=== PATIENT | female | born 1990 | race African-American/Black ===

== ENCOUNTER 2019-11-29 00:41 | Inpatient (IN) | payer SELFPAY ==
[2019-11-29 00:42] VITALS: BP 145/97; PULSE 104; RESP 22; TEMP 37.2; O2SAT 98; BMI 35.4
--- NOTE | 2019-11-29 01:01 | ECG_ITS ---
Measurements Intervals [place] Rate: 78 P: 54 WA: 159 QRS: 72 QRSD: 83 T: 56 QT: 364 QTc: 416 SINUS RHYTHM No previous ECG available for comparison Electronically Signed On 11-30-2019 14:56:46 CDT by Lauren Alcala M.D. [id number]
--- NOTE | 2019-11-29 01:04 | W.ED.PSYCH ---
HPI - Psych General: Chief Complaint: Psychiatric Symptoms Stated Complaint: si. sore throat Time Seen by Provider: 11/29/19 00:48 History of Present Illness: HPI Narrative: Susan is a 29-year-old female who comes in complaining of feeling suicidal. Patient is very withdrawn and does not want to explain to me exactly why she feels this way but she states she has a plan to get raped and be thrown off into a ditch. Patient denies having ingested or take anything up to this point but is here and wants to get help. Review of Systems Const: Denies: fever(s), chills, body aches, fatigue, malaise or diaphoresis Eyes: Denies: change in vision, blurry vision, blind spots or photophobia ENMT: Denies: throat pain, odynophagia, hoarseness, swelling of lips/tongue, ear or mastoid pain, ear discharge, change in hearing or nasal discharge Card: Denies: chest pain, palpitations, irregular heart rhythm, edema, lightheadedness, syncope, pre-syncope, dyspnea on exertion or orthopnea Resp: Denies: dyspnea, productive cough, non-productive cough, wheezing, hemoptysis or chest congestion GI: Denies: abdominal pain, nausea, vomiting, hematemesis, coffee ground emesis, heartburn, diarrhea, constipation, GI cramping, hematochezia or melena : Denies: flank pain, dysuria, urinary frequency, urinary urgency or hematuria Musc: Denies: neck pain, back pain, extremity pain, extremity swelling, joint pain, joint swelling, joint redness, joint warmth or joint stiffness Skin/Breast: Denies: rash, pruritus, erythema, skin tenderness or jaundice Neuro: Denies: headache(s), numbness in extremities, weakness in extremities, sensory changes, lack of coordination, difficulty walking, dizziness, vertigo, confusion or Slurred speech present Lazaro/Lymph: Denies: easy bruising, easy bleeding, petechiae, purpura or enlarged lymph nodes All/Imm: Denies: urticaria, throat swelling, tongue swelling, facial swelling or acute wheezing PFSH ED PFSH: Social History Smoking and tobacco status: current every day smoker Female Reproductive History: Date of last menstrual period: 11/18/19 Physical Exam Const: COMMON NORMALS: no acute distress, patient oriented x3, no limitations, healthy appearing and well nourished GENERAL APPEARANCE: cooperative, well kempt and well developed HENMT: COMMON NORMALS: normocephalic, atraumatic, external ears normal, EAC's normal and Normal external nose present HEAD & SCALP: normal to inspection, normocephalic and atraumatic FACE & SINUS: normal facial exam and face symmetric NOSE: Normal external nose present and Normal nares present EXTERNAL EAR: Yes external ears normal EXTERNAL AUDITORY CANAL: EAC's normal MOUTH: Normal oral and palatal mucosa present, lip normal and tongue normal Eye: COMMON NORMALS: Equal, round and reactive pupils present and conjunctivae normal GENERAL EYE: appearance normal, both eyes and all related structures ALIGNMENT: Yes alignment normal PERIORBITAL: periorbital findings normal EYELID: eyelids normal CONJUNCTIVA: Yes conjunctivae normal SCLERA: sclerae normal PUPIL: Yes Equal, round and reactive pupils present Neck/C-Spine: COMMON NORMALS: full ROM, no lymphadenopathy, supple, no meningeal signs and no JVD GENERAL: Yes normal visual inspection and Yes trachea midline Chest: COMMONS NORMALS: normal inspection of the chest and normal palpation of entire chest wall Resp: COMMON NORMALS: normal respiratory effort, No retractions and No use of accessory muscles EFFORT & INSPECTION: Yes able to speak in complete sentences and Yes symmetric chest movement AUSCULTATION: no crackles, no rales, no rhonchi and no wheezes Cardio: COMMON NORMALS: no JVD, regular rate, regular rhythm, S1 normal heart sound present and S2 normal heart sound present RATE: regular rate RHYTHM: regular rhythm HEART SOUNDS: S1 normal heart sound present, S2 normal heart sound present, no click, no gallops, no murmurs, no rubs and abnormal split S2 GI: COMMON NORMALS: Soft to palpation and No hepatosplenomegaly present PALPATION: Yes Soft to palpation, No Tenderness to palpation present (GI), No Guarding due to palpation present (GI), No Rigid due to palpation, Yes No hepatosplenomegaly present, No Hernia present, No Palpable mass present and No Pulsatile mass present : COMMON NORMALS: Yes no CVA tenderness BLADDER/KIDNEY EXAM: Yes no CVA tenderness EXTERNAL FEMALE EXAM: No Hernia present Back/Pelvis: COMMON NORMALS: no CVA tenderness, thoracic and lumbar spine normal to inspection, no thoracic nor lumbar tenderness and thoraco-lumbar ROM normal Extremity: COMMON NORMALS: normal to inspection, full ROM, capillary refill normal, no joint enlargement, no clubbing, cyanosis or edema and no calf tenderness Neuro: COMMON NORMALS: patient oriented x3, CN's II-XII intact bilaterally, moves all extremities, no focal motor deficits and no sensory deficits noted MENINGEAL SIGNS: Yes no meningeal signs SPEECH: speech normal Psych: APPEARANCE: Yes well kempt ATTITUDE: Yes calm ACTIVITY/MOTOR BEHAVIOR: Yes appropriate eye contact SPEECH: Yes slow MOOD & AFFECT: Yes apathetic Skin: COMMON NORMALS: no rashes or lesions noted, turgor normal, no jaundice, no petechiae and no mottling GENERAL SKIN EXAM: no rashes or lesions noted and turgor normal MDM - Psych MDM Narrative: Medical decision making narrative: The case was reviewed with Dr. Olivia and he is agreeable to admission. Lab Data: Labs: Lab Results 11/29/19 11/29/19 11/29/19 Range/Units 01:03 01:03 01:03 WBC 11.9 H (4.0-10.0) 10^3/ uL RBC 4.32 (4.1-5.3) 10^6/u L Hgb 14.3 (11.5-15.3) g/dL Hct 43.1 (37.0-47.0) % MCV 99.8 H (81-99) fL MCH 33.1 (28.0-34.0) pg MCHC 33.2 (30.0-36.0) g/dL RDW 14.3 (12.1-15.1) % Plt Count 253 (130-400) 10^3/c mm MPV 10.4 (7.4-10.4) fL Neut % (Auto) 55.8 % Lymph % (Auto) 33.6 % [place] % (Auto) 6.9 % Eos % (Auto) 2.6 % Baso % (Auto) 0.8 % Neut # (Auto) 6.6 (1.8-7.7) 10^3/u L Lymph # (Auto) 4.0 (0.8-4.8) 10^3/u L [place] # (Auto) 0.8 (0.2-0.9) 10^3/u L Eos # (Auto) 0.3 (0.0-0.8) 10^3/u L Baso # (Auto) 0.1 (0.0-0.1) 10^3/u L Nucleated RBC % (a uto) 0 % Nucleated RBCs # 0.0 /100WBC Sodium 140 (136-145) mmol/L Potassium 3.5 (3.5-5.1) mmol/L Chloride 102 (98-107) mmol/L Carbon Dioxide 24 (22-29) mmol/L Anion Gap 17.5 (5-19) BUN 11 (6-20) mg/dL Creatinine 0.6 (0.5-0.9) mg/dL GFR Calculation 117.4 (90-130) mL/min Glucose 79 (65-115) mg/dL Calculated Osmolal ity 285 (285-295) mOsm/k g Calcium 9.5 (8.5-10.5) mg/dL Total Bilirubin 0.2 (0.15-1.2) mg/dL AST 35 H (0-32) U/L ALT 19 (0-33) U/L Alkaline Phosphata se 130 H (35-105) IU/L Total Protein 8.0 (6.6-8.7) g/dL Albumin 4.5 (3.5-5.2) g/dL Globulin 3.5 (1.3-4.6) g/dL TSH 2.13 (0.27-4.20) uIU/ mL HCG, Qual (Negative) Salicylates < 0.3 L (3-10) mg/dL Urine Opiates Scre en (Negative) ng/mL Acetaminophen < 5.0 L (10-30) ug/mL Ur Barbiturates Sc reen (Negative) ng/mL Phenytoin 0.8 L (10-20) ug/mL Valproic Acid 2.8 L (50-100) ug/mL Carbamazepine 2.0 L (4.0-12.0) ug/mL Ur Phencyclidine S crn (Negative) ng/mL Ur Amphetamines Sc reen (Negative) ng/mL U Benzodiazepines Scrn (Negative) ng/mL [place] 0.1 L (0.6-1.2) mmol/L Urine Cocaine Scre en (Negative) ng/mL U Marijuana (THC) Screen (Negative) ng/mL Ethyl Alcohol 145 H (0-10) mg/dL 11/29/19 11/29/19 Range/Units 01:08 01:08 WBC (4.0-10.0) 10^3/ uL RBC (4.1-5.3) 10^6/u L Hgb (11.5-15.3) g/dL Hct (37.0-47.0) % MCV (81-99) fL MCH (28.0-34.0) pg MCHC (30.0-36.0) g/dL RDW (12.1-15.1) % Plt Count (130-400) 10^3/c mm MPV (7.4-10.4) fL Neut % (Auto) % Lymph % (Auto) % [place] % (Auto) % Eos % (Auto) % Baso % (Auto) % Neut # (Auto) (1.8-7.7) 10^3/u L Lymph # (Auto) (0.8-4.8) 10^3/u L [place] # (Auto) (0.2-0.9) 10^3/u L Eos # (Auto) (0.0-0.8) 10^3/u L Baso # (Auto) (0.0-0.1) 10^3/u L Nucleated RBC % (a uto) % Nucleated RBCs # /100WBC Sodium (136-145) mmol/L Potassium (3.5-5.1) mmol/L Chloride (98-107) mmol/L Carbon Dioxide (22-29) mmol/L Anion Gap (5-19) BUN (6-20) mg/dL Creatinine (0.5-0.9) mg/dL GFR Calculation (90-130) mL/min Glucose (65-115) mg/dL Calculated Osmolal ity (285-295) mOsm/k g Calcium (8.5-10.5) mg/dL Total Bilirubin (0.15-1.2) mg/dL AST (0-32) U/L ALT (0-33) U/L Alkaline Phosphata se (35-105) IU/L Total Protein (6.6-8.7) g/dL Albumin (3.5-5.2) g/dL Globulin (1.3-4.6) g/dL TSH (0.27-4.20) uIU/ mL HCG, Qual Negative (Negative) Salicylates (3-10) mg/dL Urine Opiates Scre en Negative (Negative) ng/mL Acetaminophen (10-30) ug/mL Ur Barbiturates Sc reen Negative (Negative) ng/mL Phenytoin (10-20) ug/mL Valproic Acid (50-100) ug/mL Carbamazepine (4.0-12.0) ug/mL Ur Phencyclidine S crn Negative (Negative) ng/mL Ur Amphetamines Sc reen Negative (Negative) ng/mL U Benzodiazepines Scrn Positive H (Negative) ng/mL [place] (0.6-1.2) mmol/L Urine Cocaine Scre en Negative (Negative) ng/mL U Marijuana (THC) Screen Negative (Negative) ng/mL Ethyl Alcohol (0-10) mg/dL Discharge Plan Discharge Patient Disposition: Admitted As Inpatient Admit Provider: Cuba Olivia Clinical Impression: Suicidal ideation Condition: Stable Interventions: ED Discharge Assessment Last Done: 11/29/19 02:10 ED Charges Last Done: 11/29/19 02:10 Discharge Date/Time: 11/29/19 02:10 Coding Level of Care Code ED [employer] Grader for Janet Bedoya
[2019-11-29 01:17] LABS: Basophils # 0.1 10^3/uL (0.0-0.1); Basophils % 0.8 %; Eosinophils # 0.3 10^3/uL (0.0-0.8); Eosinophils % 2.6 %; Hematocrit 43.1 % (37.0-47.0); Hemoglobin 14.3 g/dL (11.5-15.3); Lymphocytes % 33.6 %; Mean Corpuscular HGB Conc 33.2 g/dL (30.0-36.0); Mean Corpuscular Hemoglobin 33.1 pg (28.0-34.0); Mean Corpuscular Volume 99.8 fL (81-99); Mean Platelet Volume 10.4 fL (7.4-10.4); Monocytes # 0.8 10^3/uL (0.2-0.9); Monocytes % 6.9 %; Neutrophils # 6.6 10^3/uL (1.8-7.7); Neutrophils % 55.8 %; Nucleated Red Blood Cells % 0 %; Platelet Count 253 10^3/cmm (130-400); Red Blood Count 4.32 10^6/uL (4.1-5.3); Red Cell Distribution Width 14.3 % (12.1-15.1); White Blood Count 11.9 10^3/uL (4.0-10.0)
[2019-11-29 01:31] LABS: Lithium 0.1 mmol/L (0.6-1.2)
[2019-11-29 01:33] LABS: HCG Qualitative Urine. Negative (Negative)
[2019-11-29 01:36] LABS: Amphetamines Screen Urine Negative (Negative); Barbiturates Screen Urine Negative (Negative); Benzodiazepines Screen Urine Positive (Negative); Cocaine Screen Urine Negative (Negative); Opiate Screen Urine Negative (Negative); PCP Screen Urine Negative (Negative); THC Screen Urine Negative (Negative)
[2019-11-29 01:40] LABS: Alanine Aminotransferase 19 U/L (0-33); Albumin Level 4.5 g/dL (3.5-5.2); Alcohol Level 145 mg/dL (0-10); Alkaline Phosphatase 130 IU/L (35-105); Anion Gap 17.5 (5-19); Aspartate Amino Transferase 35 U/L (0-32); Blood Urea Nitrogen 11 mg/dL (6-20); Calcium 9.5 mg/dL (8.5-10.5); Carbon Dioxide 24 mmol/L (22-29); Chloride 102 mmol/L (98-107); Creatinine Clr Calc Pharmacy 180.2143; Globulin 3.5 g/dL (1.3-4.6); Glomerular Filtration Rate 117.4 mL/min (90-130); Glucose 79 mg/dL (65-115); Osmolality Calculated 285 mOsm/kg (285-295); Phenytoin Dilantin 0.8 ug/mL (10-20); Potassium 3.5 mmol/L (3.5-5.1); Sodium 140 mmol/L (136-145); Total Bilirubin 0.2 mg/dL (0.15-1.2); Valproic Acid Level 2.8 ug/mL (50-100)
[2019-11-29 01:41] LABS: Acetaminophen < 5.0 ug/mL (10-30); Salicylate < 0.3 mg/dL (3-10)
[2019-11-29 01:42] LABS: Thyroid Stimulating Hormone 2.13 uIU/mL (0.27-4.20)
[2019-11-29 02:41] VITALS: BP 131/91; PULSE 95; RESP 23; TEMP 37.2; O2SAT 98
[2019-11-29] MEDS: acetaminophen 325 mg Tablet 650 MG PO (02:53)
[2019-11-29 06:00] VITALS: BP 135/87; PULSE 96; RESP 22; TEMP 36.9; O2SAT 99
[2019-11-29] MEDS: cetylpyridinium Lozenge 1 EACH MUCOUS MEM ×2 (06:41→21:33)
[2019-11-29] MEDS: multivitamin therapeutic Tablet 1 TAB PO (09:13)
[2019-11-29] MEDS: thiamine 100 mg Tablet PO (09:13)
[2019-11-29] MEDS: folic acid 1 mg Tablet PO (09:13)
--- NOTE | 2019-11-29 09:18 | PM.NHP ---
Providers/Chief Complaint Admitting Physician: Cuba Olivia MD Chief Complaint: si. sore throat HPI NPU History of Present Illness Chief complaint: I was thinking about killing myself History of present illness:Susan Hernandez is a 29 year old female who finds herself with overwhelming psychosocial problems that seem to have no solution. She has been drinking over 1/5 of vodka daily for over a month. She was feeling hopeless and overwhelmed. She has poor hedonic capacity. She engages in no enjoyable activities. She is cut off from psychosocial support. She is she is sad and blue on a daily basis. Killing herself seem to be a reasonable option. She denies the presence of auditory or visual hallucinations. She denies a history of manic symptoms. She is drinking over 1/5 of liquor per day for the past month. She wakes up at night with the shakes and tremors. She denies blackouts. She admits to craving. She has never had seizures or delirium tremens as a result of stopping her alcohol. She has had problems with alcohol and substance abuse in the past. She went through an inpatient rehabilitation program at age 15. She does not feel that rehabilitation is necessary at this time if she can just develop a reasonable plan to help with her stressors. These are listed below under social history. She has 1 prior DWI 4 years ago. Mental health history: She has had at least 5 prior admissions. Her last was 5 months ago. It was at [facility] in [place]. It was a similar situation. She was off of her medications and again started drinking. She takes Prozac and trazodone and something for anxiety and those usually help her significantly. However she did not have the money to continue her medications though she did have the money to start drinking again. She has had suicidal thoughts before. She has considered walking in front of cars. She has overdosed on at least one occasion though apparently and not with lethality. Social history: The patient grew up in [place] which is up near [place]. She dropped out of school in ninth grade because it just was not for me. 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 She is largely estranged from most of her family. She does still have contact with her father who lives in [place]. However she was vague in stating that he could not help at this time. A month ago, she came to the conclusion that continuing to live in [place] was going to and badly and that she needed to leave. She somehow contacted a man from [place] who invited her to live with him. She is now been here for a month. She is sharing an apartment with 2 other men. Things have turned badly in that situation. He apparently felt that this was going to be a romantic relationship of some sort. She was not of that understanding. She is paying rent for the apartment. He tried to kick her out but police informed him that since she paid rent, she does have that access to that apartment through the end of the month. She has no good explanation as to why someone from [place] would pick [place] as her destination. She says that she just sort of met him online. She was just looking for some place to go. When she loses her access to these apartment, she would be homeless. Legal history: She has no felony arrests. She has an arrest in September 2019 for possession of drug paraphernalia. She has 1 prior DWI and leaving the scene of an accident. Past medical history: Allergies: No known drug allergies Medications: She is on no medications at this time. Previously she was taking Prozac, trazodone, and something for anxiety Surgeries: She had a unilateral oophorectomy and has had surgery for a broken leg. She is 7 para 5. She would like to be on control. Meds NPU Allergies Allergy/AdvReac Type Severity Reaction Status Date / Time No Known Allergies Allergy Verified 11/29/19 00:48 PFSH NPU PFSH: Social History Smoking and tobacco status: current every day smoker Mental Status Exam MSE Comments: Mental Status Exam: The patient is an alert interpersonally engaged woman appearing approximately her stated age. Eye contact is good. She is in mild physical distress and has difficulty sitting still. However she is believed to be a reliable informant to the best of her ability as information provided is internally consistent. Appearance: hygiene is fair; no gross neurological deficits., gait is unremarkable; AIMS=0 Speech: Speech is of normal rate and rhythm and easily understood. She provides information free discourse and spontaneously. Thought processes: Thought processes are abstract. Judgment is adequate for safety. Associations: intact Psychotic processes: There is no indication of guarding or paranoia. There is no attention to the internal stimuli. Auditory and visual hallucinations are denied. Judgment: Insight is fair. Problem solving skills are adequate for safety. Orientation: The patient is oriented to person, place time and situation. Memory: no deficits noted in immediate, intermediate, or remote spheres. Attention: The patient is alert and interpersonally engaged. Language: Verbalizations are coherent. Fund of knowledge: Fund of knowledge is adequate. Affect/Mood: Affect is consistent with a depressed mood. She has suicidal ideation but without intent or plan. Affective range appropriate. Psychosis: perception unimpaired except through cognitive distortion; reality testing intact. Vitals/I&O/Wt Last Vital Signs Temp 98.4 F 11/29/19 06:00 Pulse 96 11/29/19 06:00 Resp 22 H 11/29/19 06:00 BP 135/87 11/29/19 06:00 Pulse Ox 99 11/29/19 06:00 Weight last 48 hrs Weight 108.862 kg Data NPU : 11/29/19 01:03 11/29/19 01:03 A&P Assessment and plan (1) Major depression: Status: Acute Qualifiers: Major depression recurrence: recurrent Active/Remission status: currently active Major depression episode severity: severe Psychotic features: without psychotic features Qualified Code(s): F33.2 - Major depressive disorder, recurrent severe without psychotic features (2) Alcohol intoxication: Status: Acute Qualifiers: Complication of substance-induced condition: uncomplicated Qualified Code(s): F10.920 - Alcohol use, unspecified with intoxication, uncomplicated (3) Alcohol dependence: Status: Acute Qualifiers: Substance use status: in withdrawal Complication of substance-induced condition: uncomplicated Qualified Code(s): F10.230 - Alcohol dependence with withdrawal, uncomplicated (4) Suicidal ideation: Status: Acute Additional A&P Information Diagnoses: Major depression?recurrent, severe, without psychotic features Alcohol intoxication Alcohol dependence Treatment plan: Due to the psychiatric conditions and treatment listed in the Assessment and Plan - the patient requires continued hospitalization. Will provide a safe and therapeutic environment for patient.. Will continue inpatient treatment to allow for medication adjustment and monitoring. Will continue q15 min safety checks. Hospital day #1 assessment and plan: Patient will be initiated on the alcohol withdrawal protocol. Prozac 20 mg daily and trazodone 100 mg at bedtime will be initiated. She will receive a social work consultation to assess options upon discharge. Intention is also to address her issues of need for control prior to discharge. Monitor patient's mood, sleep, appetite, and behavior closely. Encourage patient to participate in individual and group therapeutic sessions on the ibrd. Estimated length of stay 5 days The expected benefits and potential side effects of patient's psychiatric medications were discussed with the patient. The patient understands and consents to treatment.CRITERIA FOR DISCHARGE: stable on medications and no longer an imminent risk Involuntary Hold Information 96 Hour Hold: 96 Hour Involuntary Admission: No Attestations NPU Medical Necessity Statement*: Patient remained in the hospital for 4-6 nights for completion of alcohol withdrawal and establishment of medication efficacy. Coding Level of Care Code Acute Is Consultant for Janet Bedoya Diagnoses Major depression F33.2 Major depression recurrence: recurrent Active/Remission status: currently active Major depression episode severity: severe Psychotic features: without psychotic features Alcohol intoxication F10.920 Complication of substance-induced condition: uncomplicated Alcohol dependence F10.230 Substance use status: in withdrawal Complication of substance-induced condition: uncomplicated Suicidal ideation R45.851
[2019-11-29] MEDS: fluoxetine 20 mg Capsule PO (09:27)
[2019-11-29] MEDS: LORazepam 2 mg Tablet PO (09:27)
--- NOTE | 2019-11-29 11:49 | PC.RESP ---
Smoking Cessation information and a schedule of classes sent to patient.
[2019-11-29 14:00] VITALS: BP 118/81; PULSE 99; RESP 20; TEMP 36.9; O2SAT 100
[2019-11-29] MEDS: LORazepam 1 mg Tablet PO ×2 (14:59→20:51)
[2019-11-29] MEDS: trazodone 100 mg Tablet PO (20:51)
[2019-11-29 21:32] VITALS: BP 124/56; PULSE 114; RESP 23; TEMP 36.8; O2SAT 99
[2019-11-30 06:00] VITALS: BP 109/68; PULSE 97; RESP 18; TEMP 37; O2SAT 99
[2019-11-30] MEDS: multivitamin therapeutic Tablet 1 TAB PO (08:51)
[2019-11-30] MEDS: thiamine 100 mg Tablet PO (08:51)
[2019-11-30] MEDS: LORazepam 1 mg Tablet PO ×3 (08:51→22:25)
[2019-11-30] MEDS: folic acid 1 mg Tablet PO (08:51)
[2019-11-30] MEDS: fluoxetine 20 mg Capsule PO (08:51)
--- NOTE | 2019-11-30 09:33 | PM.NPN ---
Subjective NPU Subjective: Interval history: Patient reports self to continue to survive alcohol withdrawal. She denies auditory or visual hallucinations. She continues to have tremors with mild nausea. Sleep was good last night. No other complaints or requests. Mental Status Exam MSE Comments: Mental Status Exam: The patient is an alert interpersonally engaged woman appearing approximately her stated age. Eye contact is good. She is in mild physical distress. She is believed to be a reliable informant to the best of her ability as information provided is internally consistent. Appearance: hygiene is fair; no gross neurological deficits., gait is unremarkable; AIMS=0 Speech: Speech is of normal rate and rhythm and easily understood. She provides information free discourse and spontaneously. Thought processes: Thought processes are abstract. Judgment is adequate for safety. Associations: intact Psychotic processes: There is no indication of guarding or paranoia. There is no attention to the internal stimuli. Auditory and visual hallucinations are denied. Judgment: Insight is fair. Problem solving skills are adequate for safety. Orientation: The patient is oriented to person, place time and situation. Memory: no deficits noted in immediate, intermediate, or remote spheres. Attention: The patient is alert and interpersonally engaged. Language: Verbalizations are coherent. Fund of knowledge: Fund of knowledge is adequate. Affect/Mood: Affect is consistent with a depressed mood. She has suicidal ideation but without intent or plan. Affective range appropriate. Psychosis: perception unimpaired except through cognitive distortion; reality testing intact. Cognition: Patient Appearance: Disheveled/Poor Hygiene Level of Consciousness: Awake, Alert, Appropriate and Follows Commands Patient Cognition Impaired: No Ability to Follow Directions: Good Patient Orientation (long list): Person, Place and Time Comprehension Ability: No Impairment Hallucination Type: None Delusion Description: Not Present Thought Process: Appropriate Affect: Affect Description: Calm Behavior: Patient Behavior: Appropriate Speech Pattern: Clear Vitals/I&O/Wt Last Vital Signs Temp 98.6 F 11/30/19 06:00 Pulse 97 11/30/19 06:00 Resp 18 11/30/19 06:00 BP 109/68 11/30/19 06:00 Pulse Ox 99 11/30/19 06:00 Weight last 48 hrs Weight 108.862 kg Data NPU : 11/29/19 01:03 11/29/19 01:03 A&P Assessment and plan (1) Major depression: Status: Acute Qualifiers: Major depression recurrence: recurrent Active/Remission status: currently active Major depression episode severity: severe Psychotic features: without psychotic features Qualified Code(s): F33.2 - Major depressive disorder, recurrent severe without psychotic features (2) Alcohol intoxication: Status: Acute Qualifiers: Complication of substance-induced condition: uncomplicated Qualified Code(s): F10.920 - Alcohol use, unspecified with intoxication, uncomplicated (3) Alcohol dependence: Status: Acute Qualifiers: Substance use status: in withdrawal Complication of substance-induced condition: uncomplicated Qualified Code(s): F10.230 - Alcohol dependence with withdrawal, uncomplicated (4) Suicidal ideation: Status: Acute Additional A&P Information Diagnoses: Major depression?recurrent, severe, without psychotic features Alcohol intoxication Alcohol dependence Treatment plan: Due to the psychiatric conditions and treatment listed in the Assessment and Plan - the patient requires continued hospitalization. Will provide a safe and therapeutic environment for patient.. Will continue inpatient treatment to allow for medication adjustment and monitoring. Will continue q15 min safety checks. Hospital day #1 assessment and plan: Patient will be initiated on the alcohol withdrawal protocol. Prozac 20 mg daily and trazodone 100 mg at bedtime will be initiated. She will receive a social work consultation to assess options upon discharge. Intention is also to address her issues of need for control prior to discharge. Hospital day #2: She continues to progress through the alcohol withdrawal protocol. Lorazepam 1 mg 3 times daily will be continued to tomorrow morning and then decreased to 0.5 mg 3 times daily for 24 hours before discontinuation. Monitor patient's mood, sleep, appetite, and behavior closely. Encourage patient to participate in individual and group therapeutic sessions on the bird. Estimated length of stay 5 days The expected benefits and potential side effects of patient's psychiatric medications were discussed with the patient. The patient understands and consents to treatment.CRITERIA FOR DISCHARGE: stable on medications and no longer an imminent risk Involuntary Hold Information 96 Hour Hold: 96 Hour Involuntary Admission: No Attestations NPU Medical Necessity Statement*: Patient will remain in the hospital another 2-4 nights for assessment of medication efficacy and tolerability. Coding Level of Care Code Acute Annual Giving Manager for Janet Bedoya Diagnoses Major depression F33.2 Major depression recurrence: recurrent Active/Remission status: currently active Major depression episode severity: severe Psychotic features: without psychotic features Alcohol intoxication F10.920 Complication of substance-induced condition: uncomplicated Alcohol dependence F10.230 Substance use status: in withdrawal Complication of substance-induced condition: uncomplicated Suicidal ideation R45.427
[2019-11-30] MEDS: cetylpyridinium Lozenge 1 EACH MUCOUS MEM ×3 (10:06→22:27)
[2019-11-30 14:00] VITALS: BP 134/79; RESP 18; TEMP 37.2; O2SAT 96
[2019-11-30 22:00] VITALS: BP 122/83; PULSE 96; RESP 21; TEMP 36.9; O2SAT 98
[2019-11-30] MEDS: trazodone 100 mg Tablet PO (22:25)
[2019-12-01 06:00] VITALS: BP 113/71; PULSE 70; RESP 16; TEMP 36.7; O2SAT 100
[2019-12-01] MEDS: LORazepam 1 mg Tablet PO (08:34)
[2019-12-01] MEDS: folic acid 1 mg Tablet PO (08:34)
[2019-12-01] MEDS: thiamine 100 mg Tablet PO (08:34)
[2019-12-01] MEDS: multivitamin therapeutic Tablet 1 TAB PO (08:35)
[2019-12-01] MEDS: fluoxetine 20 mg Capsule PO (08:35)
[2019-12-01] MEDS: cetylpyridinium Lozenge 1 EACH MUCOUS MEM (08:38)
--- NOTE | 2019-12-01 08:38 | PC.NURSE ---
prn CEPACOL 1 LOZENGE GIVEN PO PER PT C/O SORE THROAT. WILL CONT TO MONITOR.
[2019-12-01 14:00] VITALS: BP 119/79; PULSE 79; RESP 18; TEMP 36.8; O2SAT 100
[2019-12-01] MEDS: LORazepam 0.5 mg Tablet PO (14:55)
[2019-12-01 18:38] VITALS: BP 119/79; PULSE 79; RESP 18; TEMP 36.8; O2SAT 100
--- NOTE | 2019-12-01 18:38 | P.DS_ITS ---
Diagnoses at Discharge Discharge Diagnosis (1) Major depression: Status: Acute Problem details: The patient was despondent, hopeless and thinking of killing herself. The symptoms have resolved. Qualifiers: Major depression recurrence: recurrent Active/Remission status: currently active Major depression episode severity: severe Psychotic features: without psychotic features Qualified Code(s): F33.2 - Major depressive disorder, recurrent severe without psychotic features (2) Alcohol intoxication: Status: Acute Problem details: The patient has completed [facility] detoxification. Qualifiers: Complication of substance-induced condition: uncomplicated Qualified Co de(s): F10.920 - Alcohol use, unspecified with intoxication, uncomplicated (3) Alcohol dependence: Status: Acute Problem details: The patient has completed [facility] detoxification. However, achieving sobriety is ongoing. Qualifiers: Substance use status: in withdrawal Complication of substance-induced condition: uncomplicated Qualified Code(s): F10.230 - Alcohol dependence with withdrawal, uncomplicated (4) Suicidal ideation: Status: Acute Problem details: Resolved. Reason for Visit Reason for Visit: si. sore throat Hospital Course Discharge Summary The patient's brief stay yielded significant progress. She states she feels much better on the fluoxetine she is also been placed on naltrexone to reduce the craving and trazodone to help with sleep. Involuntary Hold Information 96 Hour Hold: 96 Hour Involuntary Admission: No Mental Status Exam MSE Comments: This is a 29-year-old -[place] female who presents at her stated age. She is clean and not disheveled. She is comfortable and her mood is calm. Affect is appropriate. Thought processes are integrated and free of any racing, blocking or looseness of association. Speech is of normal rate and volume, without dysarthria, aprosody or pressure. Cognitive functions are intact. Insight and judgment appear to be intact but they will be tested soon. I have told her so. She denies suicidal or homicidal ideation plan or intent. There is no evidence of psychosis, such as but not limited to hallucinations, delusions, ideas of reference, etc. Discharge Data Vitals: Last Vital Signs Temp 98.2 F 12/01/19 14:00 Pulse 79 12/01/19 14:00 Resp 18 12/01/19 14:00 BP 119/79 12/01/19 14:00 Pulse Ox 100 12/01/19 14:00 Discharge Plan Discharge Patient Disposition: Home, Self-Care Condition: Stable Prescriptions: New trazodone 50 mg Tablet 50 mg PO BEDTIME PRN (Reason: Sleep) 30 Days Qty: 30 RF: 0 fluoxetine 20 mg Capsule 20 mg PO DAILY 30 Days Qty: 30 RF: 0 naltrexone 50 mg Tablet 50 mg PO DAILY 30 Days Qty: 30 RF: 0 Discharge Orders: Discharge Order (Routine); Ordered 12/01/19 Ordered By: John Lopez Discharge Diet: Usual diet Discharge Activity: Resume usual activity Patient Instructions: Fluoxetine (By mouth), Trazodone (By mouth), Naltrexone (By mouth) Discharge Attestations NPU Time Spent in Discharge Care*: greater than 30 min Specific Discharge Activities: Specific discharge activities: educating patient, discussing with pcp/other providers, discussing with case work aide/social workers/dc planners, documenting/other paperwork and evaluating patient/reviewing data Other discharge activites (optional): Organizing discharge medications. Total time 60 minutes. Time Spent in Smoking Cessation: Time spent discussing smoking cessation with patient: 3 to 10 minutes Details of Smoking Cessation Education: Primary and secondary risk. Octogenarian survival study. Coding Level of Care Code Acute Mason Apprentice for [facility] Fwd Diagnoses Major depression F33.2 Major depression recurrence: recurrent Active/Remission status: currently active Major depression episode severity: severe Psychotic features: without psychotic features Alcohol intoxication F10.920 Complication of substance-induced condition: uncomplicated Alcohol dependence F10.230 Substance use status: in withdrawal Complication of substance-induced condition: uncomplicated Suicidal ideation R45.851
--- NOTE | 2019-12-02 08:47 | PC.NURSE ---
DISCHARGE MEDICATIONS CALLED INTO [facility], SPOKE TO CHARLEE. SCRIPS FOR: PROZAC 20 MG PO DAILY QTY #30 REFILL 0, NALTREXONE 50 MG PO DAILY QTY #30 REFILL 0, TRAZODONE 50 MG PO HS PRN FOR SLEEP QTY #30 REFILL 1
== END 2019-12-01 18:49 | disposition home or self-care (01) | DRG 897 ==
LOC: ER 01:23 → NP 02:10
PROVIDERS: Emergency Medicine; Admitting Provider Psychiatry & Neurology Psychiatry; Visit Provider Psychiatry & Neurology Psychiatry
DX: F10.229 Alcohol dependence with intoxication, unspecified (principal); F33.2 Major depressive disorder, recurrent severe without psychotic features; R45.851 Suicidal ideations; F10.239 Alcohol dependence with withdrawal, unspecified; F17.210 Nicotine dependence, cigarettes, uncomplicated
CPT/HCPCS: 12345; 80053; 80156; 80164; 80178; 80185; 80306; 80307; 81025; 84443; 85025; 93005; 99281

== ENCOUNTER 2019-12-28 22:55 | Inpatient (IN) | payer SELFPAY ==
[2019-12-28 22:57] VITALS: BP 114/76; PULSE 96; RESP 16; TEMP 36.8; O2SAT 98
[2019-12-28 23:29] LABS: Basophils # 0.2 10^3/uL (0.0-0.1); Basophils % 1.1 %; Hemoglobin 13.6 g/dL (11.5-15.3); Nucleated Red Blood Cells % 0 %; Positive M 1
[2019-12-28 23:35] LABS: Eosinophils # 0.7 10^3/uL (0.0-0.8); Eosinophils % 5.3 %; Hematocrit 41.4 % (37.0-47.0); Lymphocytes # 6.4 10^3/uL (0.8-4.8); Lymphocytes % 46.6 %; Mean Corpuscular HGB Conc 32.9 g/dL (30.0-36.0); Mean Corpuscular Hemoglobin 33.3 pg (28.0-34.0); Mean Corpuscular Volume 101.5 fL (81-99); Mean Platelet Volume 10.6 fL (7.4-10.4); Monocytes # 0.9 10^3/uL (0.2-0.9); Monocytes % 6.3 %; Neutrophils % 40.3 %; Platelet Count 367 10^3/cmm (130-400); Red Blood Count 4.08 10^6/uL (4.1-5.3); Red Cell Distribution Width 13.8 % (12.1-15.1); White Blood Count 13.7 10^3/uL (4.0-10.0)
[2019-12-28 23:58] LABS: Alanine Aminotransferase 23 U/L (0-33); Albumin Level 4.3 g/dL (3.5-5.2); Alcohol Level 189 mg/dL (0-10); Alkaline Phosphatase 90 IU/L (35-105); Anion Gap 17.6 (5-19); Aspartate Amino Transferase 27 U/L (0-32); Blood Urea Nitrogen 15 mg/dL (6-20); Calcium 9.5 mg/dL (8.5-10.5); Carbon Dioxide 22 mmol/L (22-29); Chloride 105 mmol/L (98-107); Globulin 3.4 g/dL (1.3-4.6); Glomerular Filtration Rate 117.4 mL/min (90-130); Glucose 94 mg/dL (65-115); Osmolality Calculated 288 mOsm/kg (285-295); Potassium 3.6 mmol/L (3.5-5.1); Salicylate 0.8 mg/dL (3-10); Slide Review Slide Review Perform; Sodium 141 mmol/L (136-145); Thyroid Stimulating Hormone 0.94 uIU/mL (0.27-4.20); Total Bilirubin 0.2 mg/dL (0.15-1.2); Total Protein 7.7 g/dL (6.6-8.7)
[2019-12-29 00:03] LABS: Acetaminophen < 5.0 ug/mL (10-30)
[2019-12-29 00:22] LABS: HCG Qualitative Urine. Negative (Negative)
[2019-12-29 00:29] LABS: Amphetamines Screen Urine Negative (Negative); Barbiturates Screen Urine Negative (Negative); Benzodiazepines Screen Urine Negative (Negative); Cocaine Screen Urine Negative (Negative); Opiate Screen Urine Negative (Negative); PCP Screen Urine Negative (Negative); THC Screen Urine Positive (Negative)
[2019-12-29 00:30] LABS: Urine Appearance SL Hazy (CLEAR); Urine Color Yellow (Yellow)
[2019-12-29 00:31] LABS: Bilirubin Urine Neg (NEGATIVE); Blood Urine Neg (Negative); Glucose Urine UA Norm (Normal); Ketones Urine Negative (Negative); Nitrate Urine Negative (Negative); Protein Urine Neg (Negative); Specific Gravity, Urine 1.025 (1.005-1.030); Urobilinogen Urine Norm (Negative); pH Urine 5 (5-7)
[2019-12-29 00:48] LABS: Add Urine Microscopic? YES; Leukocyte Esterase Urine Trace (Negative)
[2019-12-29 00:49] LABS: RBC Urine 0-4 /hpf (0-2)
[2019-12-29 00:50] LABS: Add Urine Culture? No; Bacteria Urine TRACE; Mucus Urine 1+
[2019-12-29 02:34] VITALS: BP 109/75; PULSE 110; RESP 21; TEMP 36.7; O2SAT 96
[2019-12-29] MEDS: hyDROXYzine 25 mg Capsule 50 MG PO ×2 (03:55→17:10)
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
[2019-12-29 14:00] VITALS: BP 126/87; PULSE 74; RESP 18; TEMP 36.5; O2SAT 99
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
[2019-12-29] MEDS: amoxicillin 500 mg Capsule 1000 MG PO (17:09)
[2019-12-29] MEDS: nicotine 2 mg Gum BUCCAL (21:18)
[2019-12-29] MEDS: trazodone 50 mg Tablet PO (21:20)
--- NOTE | 2019-12-29 21:20 | PC.NURSE ---
PRN TRAZODONE PT REQUESTING SLEEP AID. ADMINISTERED TRAZODONE 50 MG PO. WILL MONITOR FOR MEDICATION EFFECTIVENESS.
[2019-12-29 22:00] VITALS: BP 120/79; PULSE 66; RESP 19; TEMP 37.2; O2SAT 99
[2019-12-30 06:00] VITALS: BP 97/60; PULSE 60; RESP 18; TEMP 36.9; O2SAT 99
--- NOTE | 2019-12-30 07:15 | PM.NDC ---
Diagnoses at Discharge Discharge Diagnosis (1) Alcohol intoxication: Status: Acute Problem details: Currently resolved Qualifiers: Complication of substance-induced condition: uncomplicated Qualified Code(s): F10.920 - Alcohol use, unspecified with intoxication, uncomplicated (2) Alcohol dependence: Status: Acute Problem details: The patient has completed [facility] detoxification. However, achieving sobriety is ongoing. Qualifiers: Substance use status: in withdrawal Complication of substance-induced condition: uncomplicated Qualified Code(s): F10.230 - Alcohol dependence with withdrawal, uncomplicated (3) Major depression: Status: Acute Problem details: The patient was despondent, hopeless and thinking of killing herself. The symptoms have resolved. Qualifiers: Major depression recurrence: recurrent Active/Remission status: currently active Major depression episode severity: severe Psychotic features: without psychotic features Qualified Code(s): F33.2 - Major depressive disorder, recurrent severe without psychotic features (4) Suicidal ideation: Status: Acute Problem details: Resolved. Reason for Visit Reason for Visit: SI/ETOH Hospital Course Hospital Course This is day 1. Mapping out the patient's social and addiction problems have been undertaken. She is referred to discharge planning for eventual return to recovery program. Involuntary Hold Information 96 Hour Hold: 96 Hour Involuntary Admission: No Mental Status Exam MSE Comments: This is a very 29-year-old female who presents at her stated age. She is somewhat disheveled, having just coming off the streets last night. She is clearer in her mind today and you are able to have a normal dialogue about her needs. Mood is dysphoric; affect is flat. Thought processes are integrated and free of any racing, blocking or looseness of association. Speech is of normal rate and volume, without dysarthria, aprosody or pressure. Cognitive functions appear to be intact. She understands the ravages of her drinking but is having a great deal of difficulty defeating her dependence. She is no longer suicidal and I will allow her to sign in voluntarily so that she may be discharged with amoxicillin for her apical abscess. Physical Exam Narrative: EXAM NARRATIVE: Const: GENERAL APPEARANCE: lethargic ORIENTATION/CONSCIOUSNESS: Yes oriented to person, Yes oriented to place and Yes lethargic; not oriented to time HENMT: COMMON NORMALS: normocephalic, external ears normal and Normal external nose present HEAD & SCALP: normocephalic FACE & SINUS: normal facial exam NOSE: Normal external nose present and No nasal discharge present EXTERNAL EAR: Yes external ears normal Eye: COMMON NORMALS: Equal, round and reactive pupils present, EOMs intact bilaterally and conjunctivae normal EYELID: eyelids normal CONJUNCTIVA: Yes conjunctivae normal PUPIL: Yes Equal, round and reactive pupils present Neck/C-Spine: COMMON NORMALS: full ROM GENERAL: No tracheal deviation CERVICAL SPINE: Yes normal cervical lordosis and No Cervical spine tenderness Chest: COMMONS NORMALS: normal inspection of the chest CHEST: No tenderness Resp: COMMON NORMALS: clear to auscultation bilaterally EFFORT & INSPECTION: No tachypneic, No respiratory distress, No retractions, No uses accessory muscles and No tracheal deviation AUSCULTATION: clear to auscultation bilaterally, no rhonchi, no wheezes and lung sounds not diminished Cardio: COMMON NORMALS: regular rate and regular rhythm RATE: regular rate RHYTHM: regular rhythm HEART SOUNDS: no murmurs PERIPHERAL PULSES: radial pulses present GI: INSPECTION: No abdominal distension AUSCULTATION: No Hyperactive bowel sounds present and No Hypoactive bowel sounds present PALPATION: No Guarding due to palpation present (GI) and No Rigid due to palpation PERCUSSION: no dullness to percussion and no tympanic to percussion Neuro: SENSORIUM/ORIENTATION: Yes oriented to person, Yes oriented to place, No oriented to time and Yes lethargic Psych: APPEARANCE: Yes unkempt ATTITUDE: Yes calm ACTIVITY/MOTOR BEHAVIOR: Yes psychomotor slowing SPEECH: Yes slurred MOOD & AFFECT: Yes depressed mood THOUGHT PROCESS: confused THOUGHT CONTENT: Yes Suicidality present and No Hallucination(s) present ATTENTION/CONCENTRATION: Yes attention grossly impaired INSIGHT: Fair insight present (Psych) JUDGEMENT: Limited judgement present (Psych) Skin: COMMON NORMALS: no rashes or lesions noted GENERAL SKIN EXAM: no rashes or lesions noted Discharge Data Vitals: Last Vital Signs Temp 98.4 F 12/30/19 06:00 Pulse 60 12/30/19 06:00 Resp 18 12/30/19 06:00 BP 97/60 12/30/19 06:00 Pulse Ox 99 12/30/19 06:00 Discharge Plan Discharge Patient Disposition: Home, Self-Care Condition: Stable Prescriptions: New amoxicillin 500 mg Capsule 1,000 mg PO BID 6 Days Qty: 12 RF: 0 Continued trazodone 50 mg Tablet 50 mg PO BEDTIME PRN (Reason: Sleep) 30 Days Qty: 30 RF: 0 fluoxetine 20 mg Capsule 20 mg PO DAILY 30 Days Qty: 30 RF: 0 naltrexone 50 mg Tablet 50 mg PO DAILY 30 Days Qty: 30 RF: 0 Discharge Orders: Discharge Order (Routine); Ordered 12/30/19 Ordered By: John Lopez Discharge Diet: Usual diet Discharge Activity: Increase activity as tolerated Discharge Attestations NPU Time Spent in Discharge Care*: greater than 30 min Specific Discharge Activities: Specific discharge activities: educating patient, discussing with case work aide/social workers/dc planners, documenting/other paperwork and evaluating patient/reviewing data Status at Discharge: Cognitive status at discharge: cognitively intact, Behavioral status at discharge: cooperative, Functional status at discharge: independent ambulation Overall status at discharge: patient is back to baseline Coding Level of Care Code Acute Regional Program Manager for Janet Fwd Diagnoses Alcohol intoxication F10.920 Complication of substance-induced condition: uncomplicated Alcohol dependence F10.230 Substance use status: in withdrawal Complication of substance-induced condition: uncomplicated Major depression F33.2 Major depression recurrence: recurrent Active/Remission status: currently active Major depression episode severity: severe Psychotic features: without psychotic features Suicidal ideation R45.851
[2019-12-30] MEDS: amoxicillin 500 mg Capsule 1000 MG PO (08:24)
[2019-12-30] MEDS: nicotine 2 mg Gum BUCCAL (08:24)
[2019-12-30] MEDS: hyDROXYzine 25 mg Capsule 50 MG PO (08:24)
--- NOTE | 2019-12-30 08:24 | PC.NURSE ---
Addendum entered by Keiko Soliman LPN 12/30/19 09:18: MEDICATION EFFECTIVE. NO FURTHER C/O ANXIETY. Original Note: PRN VISTARIL VISTARIL 50MG PO PER PATIENT C/O ANXIETY. WILL CONTINUE TO MONITOR FOR MEDICATION EFFECTIVENESS.
[2019-12-30 09:01] VITALS: BP 97/60; PULSE 60; RESP 18; TEMP 36.9; O2SAT 99
[2019-12-30 09:50] VITALS: BP 97/60; PULSE 60; RESP 18; TEMP 36.9; O2SAT 99
--- NOTE | 2019-12-30 11:03 | PC.RESP ---
Smoking Cessation information and a schedule of classes to patient.
== END 2019-12-30 10:12 | disposition home or self-care (01) | DRG 897 ==
LOC: ER 23:25 → NP 12-29 02:13
PROVIDERS: Emergency Medicine; Admitting Provider Psychiatry & Neurology Psychiatry; Visit Provider Psychiatry & Neurology Psychiatry
DX: F10.229 Alcohol dependence with intoxication, unspecified (principal); F33.2 Major depressive disorder, recurrent severe without psychotic features; R45.851 Suicidal ideations; F10.239 Alcohol dependence with withdrawal, unspecified; F17.210 Nicotine dependence, cigarettes, uncomplicated; Y90.6 Blood alcohol level of 120-199 mg/100 ml
CPT/HCPCS: 12345; 80053; 80306; 80307; 81001; 81003; 81025; 84443; 85025; 99284

== ENCOUNTER 2021-11-13 05:37 | Emergency (ER) | payer MEDICAID, SELFPAY ==
[2021-11-13 05:39] VITALS: BP 141/78; PULSE 95; RESP 20; TEMP 36.6; O2SAT 96; BMI 29.9
[2021-11-13 06:00] LABS: Basophils # 0.1 10^3/uL (0.0-0.1); Basophils % 0.8 %; Eosinophils # 0.2 10^3/uL (0.0-0.8); Eosinophils % 2.2 %; Hemoglobin 14.2 g/dL (11.5-15.3); Lymphocytes # 5.4 10^3/uL (0.8-4.8); Lymphocytes % 55.7 %; Mean Corpuscular Hemoglobin 33.4 pg (28.0-34.0); Mean Corpuscular Volume 101.2 fl (81-99); Mean Platelet Volume 10.4 fL (7.4-10.4); Monocytes # 0.8 10^3/uL (0.2-0.9); Monocytes % 8.4 %; Neutrophils # 3.18 10^3/uL (1.8-7.7); Neutrophils % 32.8 %; Nucleated Red Blood Cells % 0 %; Platelet Count 340 10^3/cmm (130-400); Red Blood Count 4.25 10^6/uL (4.1-5.3); White Blood Count 9.7 10^3/uL (4.0-10.0)
[2021-11-13 06:18] LABS: Alanine Aminotransferase 32 U/L (0-33); Albumin Level 3.9 g/dL (3.5-5.2); Alcohol Level 165 mg/dL (0-10); Alkaline Phosphatase 112 IU/L (35-105); Anion Gap 15.3 (5-19); Aspartate Amino Transferase 28 U/L (0-32); Blood Urea Nitrogen 12 mg/dL (6-20); Calcium 8.8 mg/dL (8.5-10.5); Carbon Dioxide 26 mmol/L (22-29); Chloride 107 mmol/L (98-107); Globulin 3.4 g/dL (1.3-4.6); Glucose 93 mg/dL (65-115); Osmolality Calculated 299 mOsm/kg (285-295); Potassium 3.3 mmol/L (3.5-5.1); Slide Review Slide Review Perform; Sodium 145 mmol/L (136-145); Total Bilirubin 0.2 mg/dL (0.15-1.2); Total Protein 7.3 g/dL (6.6-8.7)
[2021-11-13 06:19] LABS: Acetaminophen < 5.0 ug/mL (10-30); Salicylate < 0.3 mg/dL (3-10)
--- NOTE | 2021-11-13 06:21 | W.ED.PSYCHS ---
HPI - Psych General: Chief Complaint: Psychiatric Symptoms Stated Complaint: MHE Time Seen by Provider: 11/13/21 06:04 History of Present Illness: Patient comes in with suicidal ideation. States that she is dealt with thoughts of suicide most of her life. States that she sort of has a plan. States that she just got out of intermediate about a month ago and has not been on any of her medications. States she does drink up to a half a gallon of alcohol a day and the last time she drank was this morning. States that she is homeless and cannot get into a alf until the middle of next month. Review of Systems Const: Denies: fever(s) or body aches Eyes: Denies: change in vision or blurry vision ENMT: Denies: throat pain or odynophagia Card: Denies: chest pain or palpitations Resp: Denies: dyspnea or productive cough GI: Denies: abdominal pain, nausea or vomiting : Denies: flank pain or dysuria Musc: Denies: neck pain or back pain Skin/Breast: Denies: rash or pruritus Neuro: Denies: headache(s) or numbness in extremities Psych: Denies: anxiety or change in appetite Endo: Denies: polyuria or excessive sweating PFSH ED PFSH: Social History Smoking and tobacco status: current every day smoker Female Reproductive History: Date of last menstrual period: 11/18/19 Physical Exam Const: COMMON NORMALS: no acute distress, patient oriented x3, healthy appearing and alert HENMT: COMMON NORMALS: normocephalic and atraumatic HEAD & SCALP: normocephalic and atraumatic Eye: COMMON NORMALS: Equal, round and reactive pupils present and EOMs intact bilaterally PUPIL: Yes Equal, round and reactive pupils present Neck/C-Spine: COMMON NORMALS: full ROM and supple Resp: COMMON NORMALS: normal respiratory effort, No retractions and No use of accessory muscles Cardio: COMMON NORMALS: regular rate and regular rhythm RATE: regular rate RHYTHM: regular rhythm GI: COMMON NORMALS: Normal to inspection, nondistended, normoactive bowel sounds present, Soft to palpation and non-tender PALPATION: Yes Soft to palpation Back/Pelvis: COMMON NORMALS: thoracic and lumbar spine normal to inspection and no thoracic nor lumbar tenderness Extremity: COMMON NORMALS: normal to inspection and full ROM Neuro: COMMON NORMALS: patient oriented x3 SENSORIUM/ORIENTATION: Yes alert Psych: COMMON NORMALS: mental status grossly normal and cooperative Skin: COMMON NORMALS: no rashes or lesions noted and no wounds GENERAL SKIN EXAM: no rashes or lesions noted Course Vital Signs: Vital signs: Vital Signs Temperature 97.9 F 11/13/21 05:39 Pulse Rate 95 11/13/21 05:39 Respiratory Rate 20 H 11/13/21 05:39 Blood Pressure 141/78 11/13/21 05:39 Pulse Oximetry 96 11/13/21 05:39 MDM - Psych Medical Decision Making Patient comes in with suicidal ideation. States that she is dealt with thoughts of suicide most of her life. States that she sort of has a plan. States that she just got out of intermediate about a month ago and has not been on any of her medications. States she does drink up to a half a gallon of alcohol a day and the last time she drank was this morning. States that she is homeless and cannot get into a alf until the middle of next month. We will check labs, and reassess. On reassessment I talked to the patient about the test results. She still does not have any specific plan. States she cannot get into the homeless alf because she was kicked out of it. Will discharge at this time with precautions return for worsening or changing symptoms. Lab Data : 11/13/21 05:55 11/13/21 05:55 Laboratory Results WBC 9.7 10^3/uL (4.0-10.0) 11/13/21 05:55 RBC 4.25 10^6/uL (4.1-5.3) 11/13/21 05:55 Hgb 14.2 g/dL (11.5-15.3) 11/13/21 05:55 Hct 43.0 % (37.0-47.0) 11/13/21 05:55 MCV 101.2 fl (81-99) H 11/13/21 05:55 MCH 33.4 pg (28.0-34.0) 11/13/21 05:55 MCHC 33.0 g/dL (30.0-36.0) 11/13/21 05:55 RDW 13.0 % (12.1-15.1) 11/13/21 05:55 Plt Count 340 10^3/cmm (130-400) 11/13/21 05:55 MPV 10.4 fL (7.4-10.4) 11/13/21 05:55 Neut % (Auto) 32.8 % 11/13/21 05:55 Lymph % (Auto) 55.7 % 11/13/21 05:55 Beltrami % (Auto) 8.4 % 11/13/21 05:55 Eos % (Auto) 2.2 % 11/13/21 05:55 Baso % (Auto) 0.8 % 11/13/21 05:55 Neut # (Auto) 3.18 10^3/uL (1.8-7.7) 11/13/21 05:55 Lymph # (Auto) 5.4 10^3/uL (0.8-4.8) H 11/13/21 05:55 Beltrami # (Auto) 0.8 10^3/uL (0.2-0.9) 11/13/21 05:55 Eos # (Auto) 0.2 10^3/uL (0.0-0.8) 11/13/21 05:55 Baso # (Auto) 0.1 10^3/uL (0.0-0.1) 11/13/21 05:55 Nucleated RBC % (auto) 0 % 11/13/21 05:55 Nucleated RBCs # 0.0 /100WBC 11/13/21 05:55 Sodium 145 mmol/L (136-145) 11/13/21 05:55 Potassium 3.3 mmol/L (3.5-5.1) L 11/13/21 05:55 Chloride 107 mmol/L (98-107) 11/13/21 05:55 Carbon Dioxide 26 mmol/L (22-29) 11/13/21 05:55 Anion Gap 15.3 (5-19) 11/13/21 05:55 BUN 12 mg/dL (6-20) 11/13/21 05:55 Creatinine 0.5 mg/dL (0.5-0.9) 11/13/21 05:55 GFR Calculation 143.0 mL/min (90-130) H 11/13/21 05:55 Glucose 93 mg/dL (65-115) 11/13/21 05:55 Calculated Osmolality 299 mOsm/kg (285-295) H 11/13/21 05:55 Calcium 8.8 mg/dL (8.5-10.5) 11/13/21 05:55 Total Bilirubin 0.2 mg/dL (0.15-1.2) 11/13/21 05:55 AST 28 U/L (0-32) 11/13/21 05:55 ALT 32 U/L (0-33) 11/13/21 05:55 Alkaline Phosphatase 112 IU/L (35-105) H 11/13/21 05:55 Total Protein 7.3 g/dL (6.6-8.7) 11/13/21 05:55 Albumin 3.9 g/dL (3.5-5.2) 11/13/21 05:55 Globulin 3.4 g/dL (1.3-4.6) 11/13/21 05:55 HCG, Qual Negative (Negative) 11/13/21 07:47 Urine Color Yellow (Yellow) 11/13/21 07:47 Urine Appearance Clear (CLEAR) 11/13/21 07:47 Urine pH 5 (5-7) 11/13/21 07:47 Ur Specific Turner 1.030 (1.005-1.030) 11/13/21 07:47 Urine Protein Neg (Negative) 11/13/21 07:47 Urine Glucose (UA) Norm (Normal) 11/13/21 07:47 Urine Ketones Negative (Negative) 11/13/21 07:47 Urine Blood Neg (Negative) 11/13/21 07:47 Urine Nitrate Negative (Negative) 11/13/21 07:47 Urine Bilirubin Neg (Negative) 11/13/21 07:47 Urine Urobilinogen Norm mg/dL (Negative) 11/13/21 07:47 Ur Leukocyte Esterase Negative (Negative) 11/13/21 07:47 Salicylates < 0.3 mg/dL (3-10) L 11/13/21 05:55 Urine Opiates Screen Negative ng/mL (Negative) 11/13/21 07:47 Acetaminophen < 5.0 ug/mL (10-30) L 11/13/21 05:55 Ur Barbiturates Screen Negative ng/mL (Negative) 11/13/21 07:47 Ur Phencyclidine Scrn Negative ng/mL (Negative) 11/13/21 07:47 Ur Amphetamines Screen Positive ng/mL (Negative) H 11/13/21 07:47 U Benzodiazepines Scrn Positive ng/mL (Negative) H 11/13/21 07:47 Urine Cocaine Screen Negative ng/mL (Negative) 11/13/21 07:47 U Marijuana (THC) Screen Positive ng/mL (Negative) H 11/13/21 07:47 Ethyl Alcohol 165 mg/dL (0-10) H 11/13/21 05:55 Discharge Plan Discharge Patient Disposition: Home Clinical Impression: Alcohol dependence Condition: Stable Discharge Orders: Discharge ED (Routine); Ordered 11/13/21 Ordered By: Jin Reed Coding Level of Care Code ED Diesel Inspector for Janet Bedoya Exam Comprehensive
[2021-11-13 07:51] LABS: Add Urine Microscopic? NO; Charge for UA Resulting for Rev
[2021-11-13 07:58] LABS: HCG Qualitative Urine. Negative (Negative)
[2021-11-13 08:01] LABS: Bilirubin Urine Neg (Negative); Blood Urine Neg (Negative); Glucose Urine UA Norm (Normal); Ketones Urine Negative (Negative); Leukocyte Esterase Urine Negative (Negative); Nitrate Urine Negative (Negative); Protein Urine Neg (Negative); Urine Appearance Clear (CLEAR); Urine Color Yellow (Yellow); Urobilinogen Urine Norm (Negative); pH Urine 5 (5-7)
[2021-11-13 08:03] LABS: Amphetamines Screen Urine Positive (Negative); Barbiturates Screen Urine Negative (Negative); Benzodiazepines Screen Urine Positive (Negative); Cocaine Screen Urine Negative (Negative); Opiate Screen Urine Negative (Negative); PCP Screen Urine Negative (Negative); THC Screen Urine Positive (Negative)
== END 2021-11-13 11:35 | disposition home or self-care (01) ==
PROVIDERS: Emergency Medicine; Emergency Provider Emergency Medicine
DX: F10.20 Alcohol dependence, uncomplicated (principal); Y90.6 Blood alcohol level of 120-199 mg/100 ml; Z59.00 Homelessness unspecified; R45.851 Suicidal ideations
CPT/HCPCS: 80053; 80306; 80307; 81003; 81025; 85025; 99283

== ENCOUNTER 2024-04-04 17:20 | Emergency (ER) | payer MEDICAID, SELFPAY ==
[2024-04-04 17:21] VITALS: BMI 36.6
[2024-04-04 17:25] VITALS: BP 110/68; PULSE 80; RESP 16; TEMP 36.6; O2SAT 100
--- NOTE | 2024-04-04 17:30 | ED_ITS ---
HPI - Extremity Problem General: Chief complaint: Extremity Injury, Lower Stated complaint: right leg pain Time Seen by Provider: 04/04/24 17:29 History of Present Illness: 33-year-old female comes in today for co mplaints of right leg pain. On exam patient has some old scarring to the anterior part of the leg and when questioned about this she notes that she had a old fracture to the leg. Patient denies any new injuries. Patient reports the pain was noted this morning when she woke up. Patient has been ambulating on the leg. No significant swelling or redness is noted to the leg. Related Data Previous Rx's Medication Instructions Recorded ibuprofen 600 mg tablet 600 mg PO Q6H PRN pain #20 tabs 04/04/24 Allergies Allergy/AdvReac Type Severity Reaction Status Date / Time No Known Allergies Allergy Verified 11/29/19 00:48 Review of Systems General: Reports: 10 or more systems reviewed and unremarkable except in HPI and below PFSH ED PFSH: Social History Smoking and tobacco/nicotine status: current every day tobacco/nicotine user Physical Exam Const: COMMON NORMALS: alert HENMT: COMMON NORMALS: normocephalic HEAD & SCALP: normocephalic Neck/C-Spine: COMMON NORMALS: full ROM Resp: COMMON NORMALS: normal respiratory effort Cardio: COMMON NORMALS: regular rate RATE: regular rate Back/Pelvis: COMMON NORMALS: thoracic and lumbar spine normal to inspection Extremity: RIGHT LOWER EXTREMITY: Yes lower leg (No significant swelling or redness noted. Distal pulses intact) Neuro: SENSORIUM/ORIENTATION: Yes alert Skin: COMMON NORMALS: turgor normal GENERAL SKIN EXAM: turgor normal Course Vital Signs: Vital signs: Vital Signs Temperature 97.9 F 04/04/24 17:25 Pulse Rate 80 04/04/24 17:25 Respiratory Rate 16 04/04/24 17:25 Blood Pressure 110/68 04/04/24 17:25 Pulse Oximetry 100 04/04/24 17:25 Oxygen Delivery Me thod Room Air 04/04/24 17:25 MDM - Extremity (Nontraumatic) Medical Decision Making 33-year-old female comes in today for complaints of right lower leg pain. On exam patient has some mild tenderness in the distal part of the right lower leg. No redness or swelling is noted. Patient is urine. Patient denies any injury. Differential diagnosis includes traumatic arthralgia, DVT, cellulitis. No signs of severe injury or illnesses noted. Most likely pain since pain is secondary to prior trauma. Patient reported understanding agreed to plan. Will treat with ibuprofen and acetaminophen. No radiology studies performed this visit Discharge Plan Discharge Patient Disposition: Home Clinical Impression: Lower leg pain Qualifiers: Laterality: right Qualified Code(s): M79.661 - Pain in right lower leg Condition: Stable Prescriptions: New ibuprofen 600 mg tablet 600 mg PO Q6H PRN (Reason: pain) Qty: 20 0RF Discharge Orders: Discharge ED (Routine); Ordered 04/04/24 Ordered By: Genaro Quijano Discharge Diet: Usual diet Discharge Activity: Increase activity as tolerated Patient Instructions: Leg Pain (ED) Activity Restrictions/Additional Instructions: Use ice or heat to the leg to help with pain. Your pain is most likely arthralgia and bone pain secondary to your old fracture. This is most likely brought in by the change of weather. The temperature changes often will cause discomfort. Use acetaminophen and/or ibuprofen to help control the pain. Maintain activity as tolerated. Return to emergency room or follow-up with primary care for worsening symptoms such as increased swelling and redness to the leg. Coding Level of Care Code ED Brim Raiser for Janet Bedoya
[2024-04-04] MEDS: ibuprofen 600 mg Tablet PO (18:02)
[2024-04-04 18:04] VITALS: BP 112/70; PULSE 81; O2SAT 100
== END 2024-04-04 18:58 | disposition home or self-care (01) ==
PROVIDERS: Emergency Provider Nurse Practitioner Family
DX: M79.661 Pain in right lower leg (principal); Z72.0 Tobacco use
CPT/HCPCS: 99283

== ENCOUNTER 2024-04-07 03:14 | Emergency (ER) | payer MEDICAID, SELFPAY ==
[2024-04-07 03:22] VITALS: BP 122/89; PULSE 115; RESP 20; TEMP 37.1; O2SAT 96; BMI 36.6
--- NOTE | 2024-04-07 03:39 | ED.C_ITS ---
Documented by User: Vik Valencia MD 04/07/24 05:45 HPI - Psych 2 General: Chief Complaint: Psychiatric Symptoms Stated Complaint: SI Time Seen by Provider: 04/07/24 03:23 History of Present Illness: This patient is a 33-year-old black female who presents to the emergency department with suicidal and homicidal ideation. She states she is had these thoughts for the past 2 days. She states she has a history of manic depression but she has not been on her medications. She cannot remember the last time she took them. She has no specific plan of suicide. She states she just recently got out of detention. She states she has an alcoholic. Associated symptoms: Reports depression, homicidal ideation and suicidal ideation Related Data Previous Rx's Medication Instructions Recorded ibuprofen 600 mg tablet 600 mg PO Q6H PRN pain #20 tabs 04/04/24 Allergies Allergy/AdvReac Type Severity Reaction Status Date / Time No Known Allergies Allergy Verified 11/29/19 00:48 Review of Systems 2 General: Reports: 10 or more systems reviewed and unremarkable except in HPI and below Psych: Reports: depression, suicidal ideation and homicidal ideation PFS ED 2 PFSH: Social History Smoking and tobacco/nicotine status: current every day tobacco/nicotine user Physical Exam 2 Const: COMMON NORMALS: no acute distress, patient oriented x3 and no limitations GENERAL APPEARANCE: cooperative and comfortable HENMT: COMMON NORMALS: normocephalic, atraumatic, Normal nasal mucous membranes and turbinates present, moist oral mucous membranes and oropharynx normal HEAD & SCALP: normal to inspection, normocephalic and atraumatic F KATE & SINUS: normal facial exam NOSE: Normal nasal mucous membranes and turbinates present Eye: COMMON NORMALS: Equal, round and reactive pupils present, EOMs intact bilaterally and conjunctivae normal GENERAL EYE: appearance normal, both eyes and all related structures CONJUNCTIVA: Yes conjunctivae normal PUPIL: Yes Equal, round and reactive pupils present Neck/C-Spine: COMMON NORMALS: supple and no JVD Chest: COMMONS NORMALS: normal inspection of the chest Resp: COMMON NORMALS: normal respiratory effort and clear to auscultation bilaterally AUSCULTATION: clear to auscultation bilaterally Cardio: COMMON NORMALS: no JVD, regular rate, regular rhythm, No gallops present (Cardio), No murmurs present (Cardio) and No rub (Cardio) RATE: r egular rate RHYTHM: regular rhythm GI: COMMON NORMALS: Normal to inspection, nondistended, normoactive bowel sounds present, Soft to palpation and non-tender AUSCULTATION: Yes normoactive bowel sounds PALPATION: Yes Soft to palpation : COMMON NORMALS: Yes no CVA tenderness BLADDER/KIDNEY EXAM: Yes no CVA tenderness Back/Pelvis: COMMON NORMALS: no CVA tenderness and thoracic and lumbar spine normal to inspection Extremity: COMMON NORMALS: normal to inspection Neuro: COMMON NORMALS: patient oriented x3 and CN's II-XII intact bilaterally Psych: COMMON NORMALS: cooperative and speech normal ATTITUDE: Yes calm ACTIVITY/MOTOR BEHAVIOR: Yes appropriate eye contact SPEECH: Yes normal speech MOOD & AFFECT: Yes depressed mood THOUGHT CONTENT: Yes Suicidality present and Yes Homicidality present ATTENTION/CONCENTRATION: Yes attention grossly intact MEMORY/COGNITION: Yes memory grossly intact JUDGEMENT: Poor judgement present (Psych) Skin: COMMON NORMALS: no rashes or lesions noted, turgor normal and no jaundice GENERAL SKIN EXAM: no rashes or lesions noted and turgor normal Course 2 Vital Signs: Vital signs: Vital Signs Temperature 98.7 F 04/07/24 03:22 Pulse Rate 115 H 04/07/24 03:22 Respiratory Rate 20 H 04/07/24 03:22 Blood Pressure 122/89 04/07/24 03:22 Pulse Oximetry 96 04/07/24 03:22 Oxygen Delivery Me thod Room Air 04/07/24 03:22 MDM - Psych Medical Decision Making CBC reveals a white blood cell count of 15.1. CMP was normal. Acetaminophen and salicylate levels were negative. Blood alcohol level was 171. Urinalysis is consistent with a urinary tract infection. Urine drug screen is positive for amphetamines, benzodiazepines and marijuana. Lab Data 04/07/24 03:42 04/07/24 03:42 Laboratory Results WBC 15.11 10^3/uL (3.29-11.43) H 04/07/24 03:42 RBC 4.30 10^6/uL (3.85-5.65) 04/07/24 03:42 Hgb 14.60 g/dL (11.27-16.99) 04/07/24 03:42 Hct 43.7 % (36-47) 04/07/24 03:42 MCV 101.6 fl (85-98) H 04/07/24 03:42 MCH 34.0 pg (27-33) H 04/07/24 03:42 MCHC 33.4 g/dL (30-55) 04/07/24 03:42 RDW 12.1 % (12.1-15.1) 04/07/24 03:42 Plt Count 366 10^3/cmm (157-399) 04/07/24 03:42 MPV 11.1 fL (7.4-10.4) H 04/07/24 03:42 Neut % (Auto) 45.7 % 04/07/24 03:42 Lymph % (Auto) 39.2 % 04/07/24 03:42 [place] % (Auto) 8.1 % 04/07/24 03:42 Eos % (Auto) 5.8 % 04/07/24 03:42 Baso % (Auto) 0.9 % 04/07/24 03:42 Neut # (Auto) 6.89 10^3/uL (1.8-7.7) 04/07/24 03:42 Lymph # (Auto) 5.9 10^3/uL (0.8-4.8) H 04/07/24 03:42 [place] # (Auto) 1.2 10^3/uL (0.2-0.9) H 04/07/24 03:42 Eos # (Auto) 0.9 10^3/uL (0.0-0.8) H 04/07/24 03:42 Baso # (Auto) 0.1 10^3/uL (0.0-0.1) 04/07/24 03:42 Nucleated RBC % (auto) 0 % 04/07/24 03:42 Nucleated RBCs # 0.0 /100WBC 04/07/24 03:42 Sodium 139 mmol/L (136-145) 04/07/24 03:42 Potassium 3.5 mmol/L (3.5-5.1) 04/07/24 03:42 Chloride 104 mmol/L (98-107) 04/07/24 03:42 Carbon Dioxide 20 mmol/L (22-29) L 04/07/24 03:42 Anion Gap 18.5 (5-19) 04/07/24 03:42 BUN 10 mg/dL (6-20) 04/07/24 03:42 Creatinine 0.6 mg/dL (0.5-0.9) 04/07/24 03:42 GFR Calculation 138.5 mL/min (90-130) H 04/07/24 03:42 Glucose 110 mg/dL (65-115) 04/07/24 03:42 Calculated Osmolality 288 mOsm/kg (285-295) 04/07/24 03:42 Calcium 8.9 mg/dL (8.5-10.5) 04/07/24 03:42 Total Bilirubin 0.2 mg/dL (0.15-1.2) 04/07/24 03:42 AST 35 U/L (0-32) H 04/07/24 03:42 ALT 27 U/L (0-33) 04/07/24 03:42 Alkaline Phosphatase 102 U/L (35-105) 04/07/24 03:42 Total Protein 7.5 g/dL (6.6-8.7) 04/07/24 03:42 Albumin 3.9 g/dL (3.5-5.2) 04/07/24 03:42 Globulin 3.6 g/dL (1.3-4.6) 04/07/24 03:42 TSH 2.43 uIU/mL (0.27-4.20) 04/07/24 03:42 HCG, Qual Negative (Negative) 04/07/24 05:04 Urine Color Yellow (Yellow) 04/07/24 05:04 Urine Appearance Turbid (CLEAR) A 04/07/24 05:04 Urine pH 5.0 (5-7) 04/07/24 05:04 Ur Specific [place] 1.028 (1.005-1.030) 04/07/24 05:04 Urine Protein Negative (Negative) 04/07/24 05:04 Urine Glucose (UA) Negative (Normal) 04/07/24 05:04 Urine Ketones Negative (Negative) 04/07/24 05:04 Urine Blood Negative (Negative) 04/07/24 05:04 Urine Nitrate Negative (Negative) 04/07/24 05:04 Urine Bilirubin Negative (Negative) 04/07/24 05:04 Urine Urobilinogen 1.0 mg/dL (Negative) 04/07/24 05:04 Ur Leukocyte Esterase 1+ (Negative) A 04/07/24 05:04 Urine RBC 3-5 /hpf (0-2) 04/07/24 05:04 Urine WBC 51-100 /hpf (0-5) H 04/07/24 05:04 Ur Squamous Epith Cells 0-5 /hpf (0-5) 04/07/24 05:04 Amorphous Sediment Not Reportable 04/07/24 05:04 Urine Bacteria 1+ /hpf (NONE) H 04/07/24 05:04 Hyaline Casts 3.30 /lpf 04/07/24 05:04 Salicylates < 0.3 mg/dL (3-10) L 04/07/24 03:42 Urine Opiates Screen Negative ng/mL (Negative) 04/07/24 05:04 Acetaminophen < 5.0 ug/mL (10-30) L 04/07/24 03:42 Ur Barbiturates Screen Negative ng/mL (Negative) 04/07/24 05:04 Ur Phencyclidine Scrn Negative ng/mL (Negative) 04/07/24 05:04 Ur Amphetamines Screen Positive ng/mL (Negative) H 04/07/24 05:04 U Benzodiazepines Scrn Positive ng/mL (Negative) H 04/07/24 05:04 Urine Cocaine Screen Negative ng/mL (Negative) 04/07/24 05:04 U Marijuana (THC) Screen Positive ng/mL (Negative) H 04/07/24 05:04 Ethyl Alcohol 171 mg/dL (0-10) H 04/07/24 03:42 Coronavirus (PCR) Negative (Negative) 04/07/24 06:36 Influenza A (PCR) Negative (Negative) 04/07/24 06:36 Influenza Type B (PCR) Negative (Negative) 04/07/24 06:36 RSV (PCR) Negative (Negative) 04/07/24 06:36 Discharge Plan Discharge Condition: Stable Prescriptions: No Action ibuprofen 600 mg tablet 600 mg PO Q6H PRN (Reason: pain) Qty: 20 0RF Coding Level of Care Code ED General Office Worker for Chg Fwd Documented by User: Sameera Shin MD 04/07/24 09:11 HPI - Psych 2 General: Chief Complaint: Psychiatric Symptoms Stated Complaint: SI Time Seen by Provider: 04/07/24 03:23 Related Data Previous Rx's Medication Instructions Recorded ibuprofen 600 mg tablet 600 mg PO Q6H PRN pain #20 tabs 04/04/24 Allergies Allergy/AdvReac Type Severity Reaction Status Date / Time No Known Allergies Allergy Verified 11/29/19 00:48 PFSH ED 2 PFSH: Social History Smoking and tobacco/nicotine status: current every day tobacco/nicotine user Course 2 Vital Signs: Vital signs: Vital Signs Temperature 98.7 F 04/07/24 03:22 Pulse Rate 115 H 04/07/24 03:22 Respiratory Rate 20 H 04/07/24 03:22 Blood Pressure 122/89 04/07/24 03:22 Pulse Oximetry 96 04/07/24 03:22 Oxygen Delivery Me thod Room Air 04/07/24 03:22 MDM - Psych Medical Records I reviewed the patient's medical records. Lab Data I reviewed the patient's lab results. 04/07/24 03:42 04/07/24 03:42 Laboratory Results WBC 15.11 10^3/uL (3.29-11.43) H 04/07/24 03:42 RBC 4.30 10^6/uL (3.85-5.65) 04/07/24 03:42 Hgb 14.60 g/dL (11.27-16.99) 04/07/24 03:42 Hct 43.7 % (36-47) 04/07/24 03:42 MCV 101.6 fl (85-98) H 04/07/24 03:42 MCH 34.0 pg (27-33) H 04/07/24 03:42 MCHC 33.4 g/dL (30-55) 04/07/24 03:42 RDW 12.1 % (12.1-15.1) 04/07/24 03:42 Plt Count 366 10^3/cmm (157-399) 04/07/24 03:42 MPV 11.1 fL (7.4-10.4) H 04/07/24 03:42 Neut % (Auto) 45.7 % 04/07/24 03:42 Lymph % (Auto) 39.2 % 04/07/24 03:42 Milam % (Auto) 8.1 % 04/07/24 03:42 Eos % (Auto) 5.8 % 04/07/24 03:42 Baso % (Auto) 0.9 % 04/07/24 03:42 Neut # (Auto) 6.89 10^3/uL (1.8-7.7) 04/07/24 03:42 Lymph # (Auto) 5.9 10^3/uL (0.8-4.8) H 04/07/24 03:42 [place] # (Auto) 1.2 10^3/uL (0.2-0.9) H 04/07/24 03:42 Eos # (Auto) 0.9 10^3/uL (0.0-0.8) H 04/07/24 03:42 Baso # (Auto) 0.1 10^3/uL (0.0-0.1) 04/07/24 03:42 Nucleated RBC % (auto) 0 % 04/07/24 03:42 Nucleated RBCs # 0.0 /100WBC 04/07/24 03:42 Sodium 139 mmol/L (136-145) 04/07/24 03:42 Potassium 3.5 mmol/L (3.5-5.1) 04/07/24 03:42 Chloride 104 mmol/L (98-107) 04/07/24 03:42 Carbon Dioxide 20 mmol/L (22-29) L 04/07/24 03:42 Anion Gap 18.5 (5-19) 04/07/24 03:42 BUN 10 mg/dL (6-20) 04/07/24 03:42 Creatinine 0.6 mg/dL (0.5-0.9) 04/07/24 03:42 GFR Calculation 138.5 mL/min (90-130) H 04/07/24 03:42 Glucose 110 mg/dL (65-115) 04/07/24 03:42 Calculated Osmolality 288 mOsm/kg (285-295) 04/07/24 03:42 Calcium 8.9 mg/dL (8.5-10.5) 04/07/24 03:42 Total Bilirubin 0.2 mg/dL (0.15-1.2) 04/07/24 03:42 AST 35 U/L (0-32) H 04/07/24 03:42 ALT 27 U/L (0-33) 04/07/24 03:42 Alkaline Phosphatase 102 U/L (35-105) 04/07/24 03:42 Total Protein 7.5 g/dL (6.6-8.7) 04/07/24 03:42 Albumin 3.9 g/dL (3.5-5.2) 04/07/24 03:42 Globulin 3.6 g/dL (1.3-4.6) 04/07/24 03:42 TSH 2.43 uIU/mL (0.27-4.20) 04/07/24 03:42 HCG, Qual Negative (Negative) 04/07/24 05:04 Urine Color Yellow (Yellow) 04/07/24 05:04 Urine Appearance Turbid (CLEAR) A 04/07/24 05:04 Urine pH 5.0 (5-7) 04/07/24 05:04 Ur Specific [place] 1.028 (1.005-1.030) 04/07/24 05:04 Urine Protein Negative (Negative) 04/07/24 05:04 Urine Glucose (UA) Negative (Normal) 04/07/24 05:04 Urine Ketones Negative (Negative) 04/07/24 05:04 Urine Blood Negative (Negative) 04/07/24 05:04 Urine Nitrate Negative (Negative) 04/07/24 05:04 Urine Bilirubin Negative (Negative) 04/07/24 05:04 Urine Urobilinogen 1.0 mg/dL (Negative) 04/07/24 05:04 Ur Leukocyte Esterase 1+ (Negative) A 04/07/24 05:04 Urine RBC 3-5 /hpf (0-2) 04/07/24 05:04 Urine WBC 51-100 /hpf (0-5) H 04/07/24 05:04 Ur Squamous Epith Cells 0-5 /hpf (0-5) 04/07/24 05:04 Amorphous Sediment Not Reportable 04/07/24 05:04 Urine Bacteria 1+ /hpf (NONE) H 04/07/24 05:04 Hyaline Casts 3.30 /lpf 04/07/24 05:04 Salicylates < 0.3 mg/dL (3-10) L 04/07/24 03:42 Urine Opiates Screen Negative ng/mL (Negative) 04/07/24 05:04 Acetaminophen < 5.0 ug/mL (10-30) L 04/07/24 03:42 Ur Barbiturates Screen Negative ng/mL (Negative) 04/07/24 05:04 Ur Phencyclidine Scrn Negative ng/mL (Negative) 04/07/24 05:04 Ur Amphetamines Screen Positive ng/mL (Negative) H 04/07/24 05:04 U Benzodiazepines Scrn Positive ng/mL (Negative) H 04/07/24 05:04 Urine Cocaine Screen Negative ng/mL (Negative) 04/07/24 05:04 U Marijuana (THC) Screen Positive ng/mL (Negative) H 04/07/24 05:04 Ethyl Alcohol 171 mg/dL (0-10) H 04/07/24 03:42 Coronavirus (PCR) Negative (Negative) 04/07/24 06:36 Influenza A (PCR) Negative (Negative) 04/07/24 06:36 Influenza Type B (PCR) Negative (Negative) 04/07/24 06:36 RSV (PCR) Negative (Negative) 04/07/24 06:36 No radiology studies performed this visit EKG Data EKG 1: I personally reviewed and interpreted this EKG as follows: EKG interpretation date: 04/07/24 EKG interpretation time: 09:01 Interpretation: nsr hr [address] elevation qrs 88 qtc 423 Discharge Plan Discharge Condition: Stable Prescriptions: No Action ibuprofen 600 mg tablet 600 mg PO Q6H PRN (Reason: pain) Qty: 20 0RF Coding Level of Care Code ED General Office Worker for Chg Aureliano
[2024-04-07 03:49] LABS: Basophils # 0.1 10^3/uL (0.0-0.1); Basophils % 0.9 %; Eosinophils # 0.9 10^3/uL (0.0-0.8); Eosinophils % 5.8 %; Hematocrit 43.7 % (36-47); Lymphocytes # 5.9 10^3/uL (0.8-4.8); Lymphocytes % 39.2 %; Mean Corpuscular HGB Conc 33.4 g/dL (30-55); Mean Corpuscular Volume 101.6 fl (85-98); Mean Platelet Volume 11.1 fL (7.4-10.4); Monocytes # 1.2 10^3/uL (0.2-0.9); Monocytes % 8.1 %; Neutrophils # 6.89 10^3/uL (1.8-7.7); Neutrophils % 45.7 %; Nucleated Red Blood Cells % 0 %; Platelet Count 366 10^3/cmm (157-399); Red Cell Distribution Width 12.1 % (12.1-15.1); White Blood Count 15.11 10^3/uL (3.29-11.43)
[2024-04-07 04:04] LABS: Alanine Aminotransferase 27 U/L (0-33); Albumin Level 3.9 g/dL (3.5-5.2); Alcohol Level 171 mg/dL (0-10); Alkaline Phosphatase 102 U/L (35-105); Anion Gap 18.5 (5-19); Aspartate Amino Transferase 35 U/L (0-32); Blood Urea Nitrogen 10 mg/dL (6-20); Calcium 8.9 mg/dL (8.5-10.5); Carbon Dioxide 20 mmol/L (22-29); Chloride 104 mmol/L (98-107); Creatinine Clr Calc Pharmacy 154.5799; Globulin 3.6 g/dL (1.3-4.6); Glomerular Filtration Rate 138.5 mL/min (90-130); Glucose 110 mg/dL (65-115); Osmolality Calculated 288 mOsm/kg (285-295); Potassium 3.5 mmol/L (3.5-5.1); Sodium 139 mmol/L (136-145); Total Bilirubin 0.2 mg/dL (0.15-1.2); Total Protein 7.5 g/dL (6.6-8.7)
[2024-04-07 04:07] LABS: Acetaminophen < 5.0 ug/mL (10-30); Salicylate < 0.3 mg/dL (3-10)
[2024-04-07 04:13] LABS: Slide Review Slide Review Perform
[2024-04-07] MEDS: sodium chloride 0.9% 1,000 ML 999 ML IV (04:53)
[2024-04-07] MEDS: nicotine 21 mg Patch 1 PATCH TRANSDERMA (05:06)
[2024-04-07 05:13] LABS: Bilirubin Urine Negative (Negative); Blood Urine Negative (Negative); Glucose Urine UA Negative (Normal); Ketones Urine Negative (Negative); Leukocyte Esterase Urine 1+ (Negative); Nitrate Urine Negative (Negative); Protein Urine Negative (Negative); Specific Gravity, Urine 1.028 (1.005-1.030); Urine Appearance Turbid (CLEAR); Urine Color Yellow (Yellow)
[2024-04-07 05:18] LABS: Add Urine Microscopic? YES; Bacteria Urine 1+ /hpf; Squamous Epithelial Cell Urine 0-5 /hpf (0-5); WBC Urine 51-100 /hpf (0-5)
[2024-04-07 05:19] LABS: Add Urine Culture? Yes
[2024-04-07 05:20] LABS: Amphetamines Screen Urine Positive (Negative); Barbiturates Screen Urine Negative (Negative); Benzodiazepines Screen Urine Positive (Negative); Cocaine Screen Urine Negative (Negative); Opiate Screen Urine Negative (Negative); PCP Screen Urine Negative (Negative); THC Screen Urine Positive (Negative)
[2024-04-07 05:23] LABS: HCG Qualitative Urine. Negative (Negative)
[2024-04-07] MEDS: ciprofloxacin 500 mg Tablet PO (06:21)
--- NOTE | 2024-04-07 06:27 | PC.NURSE ---
Rounded on pt. Pt restless. MD at bedside. Pt given sandwich and drink at this time.
--- NOTE | 2024-04-07 06:28 | ECG_ITS ---
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
[2024-04-07] MEDS: LORazepam 1 mg Tablet PO (06:30)
--- NOTE | 2024-04-07 07:00 | PC.NURSE ---
96 Hour Hold Patient informed of being placed on a 96 hour hold. Rights read to patient and copy left at bedside. Patient verbalized understanding with no further questions. Patient care nurse at bedside.
[2024-04-07 07:02] LABS: Thyroid Stimulating Hormone 2.43 uIU/mL (0.27-4.20)
[2024-04-07 07:30] LABS: Covid PCR NEGATIVE (Negative); Influenza A NEGATIVE (Negative); Influenza B NEGATIVE (Negative); Respiratory Syncytial Virus Ce NEGATIVE (Negative)
[2024-04-07] MEDS: LORazepam 2 mg Tablet PO ×2 (15:36→19:39)
--- NOTE | 2024-04-07 19:23 | PC.NURSE ---
Report from MARGARETH Eli. Pt resting quietly at this time. No needs.
[2024-04-07 21:23] VITALS: BP 105/65; PULSE 93; RESP 17; TEMP 37; O2SAT 97
--- NOTE | 2024-04-07 21:45 | PC.NURSE ---
This RN to bedside to speak with pt about possible transfer to [facility]. Pt stated she would not go and we would have problems. Pt stated this in a calm way, but was adamant that she would not be going. Charge nurse notified and warehouse production worker notified. advertising supervisor contacted [facility], who stated pt would have to go per her 96 hold order. MD and warehouse production worker to bedside to explain pt rights and transfer process. Pt continued to state she would not be going and that we would have problems. Pt offered meds to calm her down, which pt was agreeable to. Orders received from MD and meds given.
[2024-04-07] MEDS: haloperidol inj 5 mg/mL INJ 1 mL IM (22:11)
[2024-04-07] MEDS: diphenhydrAMINE 50 mg/mL SDV 1mL IM (22:12)
== END 2024-04-07 23:10 ==
PROVIDERS: Emergency Medicine; Emergency Provider Emergency Medicine
DX: R45.851 Suicidal ideations (principal); R45.850 Homicidal ideations; Z11.52 Encounter for screening for COVID-19; Z72.0 Tobacco use
CPT/HCPCS: 0241U; 36415; 80053; 80306; 80307; 81001; 81025; 84443; 85025; 87086; 93005; 96372; 99285; J1200; J1630; J7030

== ENCOUNTER 2024-04-29 02:01 | Inpatient (IN) | payer MEDICAID, SELFPAY ==
[2024-04-29 02:01] VITALS: BP 138/72; PULSE 78; RESP 19; TEMP 36.8; O2SAT 97; BMI 29.9
[2024-04-29 02:55] LABS: Basophils # 0.1 10^3/uL (0.0-0.1); Eosinophils # 0.6 10^3/uL (0.0-0.8); Eosinophils % 5.2 %; Hematocrit 42.7 % (36-47); Lymphocytes # 6.7 10^3/uL (0.8-4.8); Lymphocytes % 60.9 %; Mean Corpuscular Hemoglobin 33.3 pg (27-33); Mean Corpuscular Volume 100.7 fl (85-98); Mean Platelet Volume 10.4 fL (7.4-10.4); Monocytes # 0.8 10^3/uL (0.2-0.9); Monocytes % 7.4 %; Neutrophils % 25.3 %; Nucleated Red Blood Cells % 0 %; Platelet Count 332 10^3/cmm (157-399); Red Blood Count 4.24 10^6/uL (3.85-5.65); Red Cell Distribution Width 12.9 % (12.1-15.1); White Blood Count 11.04 10^3/uL (3.29-11.43)
--- NOTE | 2024-04-29 03:12 | W.ED.PSYCHS ---
HPI - Psych General: Chief Complaint: Psychiatric Symptoms Stated Complaint: SI/ HI Time Seen by Provider: 04/29/24 02:14 History of Present Illness: 34-year-old female with a history of psychiatric disease. She presents with suicidal ideation. Her plan was to jump off a bridge this morning. She is somewhat intoxicated with alcohol but answering all questions appropriately. She denies other medical problems or illnesses. Related Data Previous Rx's Medication Instructions Recorded ibuprofen 600 mg tablet 600 mg PO Q6H PRN pain #20 tabs 04/04/24 Allergies Allergy/AdvReac Type Severity Reaction Status Date / Time No Known Allergies Allergy Verified 11/29/19 00:48 [facility] ED PFSH: Social History Smoking and tobacco/nicotine status: current every day tobacco/nicotine user Physical Exam Const: COMMON NORMALS: no acute distress GENERAL APPEARANCE: cooperative; not ill appearing and not frail appearing HENMT: COMMON NORMALS: normocephalic, atraumatic and Normal external nose present HEAD & SCALP: normocephalic and atraumatic FACE & SINUS: normal facial exam and face symmetric NOSE: Normal external nose present Eye: COMMON NORMALS: Equal, round and reactive pupils present and EOMs intact bilaterally PUPIL: Yes Equal, round and reactive pupils present Neck/C-Spine: GENERAL: Yes trachea midline Chest: CHEST: Yes Symmetrical chest wall rise Resp: COMMON NORMALS: normal respiratory effort, No retractions, No use of accessory muscles and clear to auscultation bilaterally AUSCULTATION: clear to auscultation bilaterally Cardio: COMMON NORMALS: regular rate and regular rhythm RATE: regular rate RHYTHM: regular rhythm GI: COMMON NORMALS: Normal to inspection, nondistended, normoactive bowel sounds present Extremity: COMMON NORMALS: no pedal edema Neuro: ISELA COMA SCALE: document GCS findings Isela coma scale eye opening: Spontaneous Isela coma scale verbal response: Orientated [place] coma scale motor response: Obey commands [place] coma scale total score: 15 SENSORY EXAM: Yes extremities (intact) Psych: COMMON NORMALS: speech normal SPEECH: Yes normal speech Skin: COMMON NORMALS: no rashes or lesions noted GENERAL SKIN EXAM: no rashes or lesions noted Course Vital Signs: Vital signs: Vital Signs Temperature 98.2 F 04/29/24 02:01 Pulse Rate 78 04/29/24 02:01 Respiratory Rate 19 H 04/29/24 02:01 Blood Pressure 138/72 04/29/24 02:01 Pulse Oximetry 97 04/29/24 02:01 Oxygen Delivery Me thod Room Air 04/29/24 02:01 MDM - Psych Medical Decision Making The patient is awake and alert, answering questions appropriately. We do not currently have beds available at our facility. She has been compliant. We have not had to medicate her. Medically she is quite stable. Beds will become available later this morning at our facility. She remains medically stable. Psychiatry agrees to admit. Lab Data 04/29/24 02:30 04/29/24 02:30 Laboratory Results WBC 11.04 10^3/uL (3.29-11.43) 04/29/24 02:30 RBC 4.24 10^6/uL (3.85-5.65) 04/29/24 02:30 Hgb 14.10 g/dL (11.27-16.99) 04/29/24 02:30 Hct 42.7 % (36-47) 04/29/24 02:30 MCV 100.7 fl (85-98) H 04/29/24 02:30 MCH 33.3 pg (27-33) H 04/29/24 02:30 MCHC 33.0 g/dL (30-55) 04/29/24 02:30 RDW 12.9 % (12.1-15.1) 04/29/24 02:30 Plt Count 332 10^3/cmm (157-399) 04/29/24 02:30 MPV 10.4 fL (7.4-10.4) 04/29/24 02:30 Neut % (Auto) 25.3 % 04/29/24 02:30 Lymph % (Auto) 60.9 % 04/29/24 02:30 [place] % (Auto) 7.4 % 04/29/24 02:30 Eos % (Auto) 5.2 % 04/29/24 02:30 Baso % (Auto) 1.0 % 04/29/24 02:30 Neut # (Auto) 2.80 10^3/uL (1.8-7.7) 04/29/24 02:30 Lymph # (Auto) 6.7 10^3/uL (0.8-4.8) H 04/29/24 02:30 [place] # (Auto) 0.8 10^3/uL (0.2-0.9) 04/29/24 02:30 Eos # (Auto) 0.6 10^3/uL (0.0-0.8) 04/29/24 02:30 Baso # (Auto) 0.1 10^3/uL (0.0-0.1) 04/29/24 02:30 Nucleated RBC % (auto) 0 % 04/29/24 02:30 Nucleated RBCs # 0.0 /100WBC 04/29/24 02:30 Sodium 143 mmol/L (136-145) 04/29/24 02:30 Potassium 3.5 mmol/L (3.5-5.1) 04/29/24 02:30 Chloride 106 mmol/L (98-107) 04/29/24 02:30 Carbon Dioxide 23 mmol/L (22-29) 04/29/24 02:30 Anion Gap 17.5 (5-19) 04/29/24 02:30 BUN 9 mg/dL (6-20) 04/29/24 02:30 Creatinine 0.6 mg/dL (0.5-0.9) 04/29/24 02:30 GFR Calculation 137.7 mL/min (90-130) H 04/29/24 02:30 Glucose 107 mg/dL (65-115) 04/29/24 02:30 Calculated Osmolality 295 mOsm/kg (285-295) 04/29/24 02:30 Calcium 8.3 mg/dL (8.5-10.5) L 04/29/24 02:30 Total Bilirubin 0.2 mg/dL (0.15-1.2) 04/29/24 02:30 AST 30 U/L (0-32) 04/29/24 02:30 ALT 14 U/L (0-33) 04/29/24 02:30 Alkaline Phosphatase 107 U/L (35-105) H 04/29/24 02:30 Total Protein 7.5 g/dL (6.6-8.7) 04/29/24 02:30 Albumin 3.9 g/dL (3.5-5.2) 04/29/24 02:30 Globulin 3.6 g/dL (1.3-4.6) 04/29/24 02:30 TSH 2.61 uIU/mL (0.27-4.20) 04/29/24 02:30 Salicylates < 0.3 mg/dL (3-10) L 04/29/24 02:30 Acetaminophen 42.9 ug/mL (10-30) H 04/29/24 02:30 Ethyl Alcohol 170 mg/dL (0-10) H 04/29/24 02:30 Coronavirus (PCR) Negative (Negative) 04/29/24 02:50 Influenza A (PCR) Negative (Negative) 04/29/24 02:50 Influenza Type B (PCR) Negative (Negative) 04/29/24 02:50 RSV (PCR) Negative (Negative) 04/29/24 02:50 No radiology studies performed this visit Discharge Plan Discharge Patient Disposition: Admitted As Inpatient Clinical Impression: Suicidal ideation Condition: Stable Coding Level of Care Code ED Conventions Assistant for Janet Bedoya
[2024-04-29 03:13] LABS: Acetaminophen 42.9 ug/mL (10-30); Alanine Aminotransferase 14 U/L (0-33); Albumin Level 3.9 g/dL (3.5-5.2); Alcohol Level 170 mg/dL (0-10); Alkaline Phosphatase 107 U/L (35-105); Anion Gap 17.5 (5-19); Aspartate Amino Transferase 30 U/L (0-32); Blood Urea Nitrogen 9 mg/dL (6-20); Calcium 8.3 mg/dL (8.5-10.5); Carbon Dioxide 23 mmol/L (22-29); Chloride 106 mmol/L (98-107); Creatinine Clr Calc Pharmacy 138.1284; Globulin 3.6 g/dL (1.3-4.6); Glomerular Filtration Rate 137.7 mL/min (90-130); Glucose 107 mg/dL (65-115); Osmolality Calculated 295 mOsm/kg (285-295); Potassium 3.5 mmol/L (3.5-5.1); Salicylate < 0.3 mg/dL (3-10); Sodium 143 mmol/L (136-145); Total Bilirubin 0.2 mg/dL (0.15-1.2); Total Protein 7.5 g/dL (6.6-8.7)
[2024-04-29 03:17] LABS: Slide Review Slide Review Perform
[2024-04-29 03:22] LABS: Thyroid Stimulating Hormone 2.61 uIU/mL (0.27-4.20)
[2024-04-29 03:34] LABS: Covid PCR NEGATIVE (Negative); Influenza A NEGATIVE (Negative); Influenza B NEGATIVE (Negative); Respiratory Syncytial Virus Ce NEGATIVE (Negative)
--- NOTE | 2024-04-29 05:21 | PC.NURSE ---
96 HH Pt served with copy of 96 Hour Hold by this RN and security. Pt is tearful, I'm not in a good place right now . Pt A&Ox4, calm and cooperative at this time.
--- NOTE | 2024-04-29 07:02 | PC.NURSE ---
this RN took over pt care @ 1814 from MARGARETH Robertson
[2024-04-29 07:41] VITALS: BP 131/71; PULSE 80; TEMP 36.5; O2SAT 98
--- NOTE | 2024-04-29 07:42 | PC.NURSE ---
when taking pt vital signs, pt was woke up by this rn. pt requested a soda, pt given soda. no other complaints or needs at this time.
[2024-04-29 10:30] VITALS: BP 132/78; PULSE 96; O2SAT 97
--- NOTE | 2024-04-29 11:17 | PC.NURSE ---
Patient scored 11 on CIWA scale. Per protocol, given 2mg ativan PO.
[2024-04-29] MEDS: nicotine 21 mg Patch 1 PATCH TRANSDERMA (11:28)
[2024-04-29] MEDS: OLANZapine 5 mg ODT PO (11:28)
--- NOTE | 2024-04-29 11:28 | PC.NURSE ---
Administered zyprexa 5mg ODT as waiting for pharmacy to approve ativan 2mg
[2024-04-29 12:00] VITALS: BP 127/75; PULSE 75; RESP 18; TEMP 36.8; O2SAT 96
--- NOTE | 2024-04-29 12:02 | PC.NURSE ---
This nurse contacted staff at [facility] in [place] about patient's medications. Patient was discharged from [facility] on 04/13 at 1300. Patient was discharged on the following medications: lithium 300mg BID vivitrol 380mg every 28 days with last injection on 04/12 Seroquel 150mg at bedtime During admission assessment, patient said that she is taking clonazepam, but this was not accurate, per staff.
[2024-04-29] MEDS: LORazepam 2 mg Tablet PO (12:36)
[2024-04-29 16:00] VITALS: BP 142/80; PULSE 92; RESP 18; TEMP 36.6; O2SAT 97
[2024-04-29 20:00] VITALS: BP 110/70; PULSE 73; RESP 18; TEMP 36.6; O2SAT 98
[2024-04-29 20:20] LABS: Bilirubin Urine Negative (Negative); Blood Urine Negative (Negative); Glucose Urine UA Negative (Normal); Ketones Urine Negative (Negative); Leukocyte Esterase Urine Trace (Negative); Nitrate Urine Negative (Negative); Protein Urine Negative (Negative); Specific Gravity, Urine 1.024 (1.005-1.030); Urine Appearance Clear (CLEAR); Urine Color Yellow (Yellow); pH Urine 7.5 (5-7)
[2024-04-29 20:22] LABS: HCG Qualitative Urine. Negative (Negative)
[2024-04-29 20:25] LABS: Add Urine Microscopic? YES; Bacteria Urine Trace /hpf; RBC Urine 0-2 /hpf (0-2); Squamous Epithelial Cell Urine 0-5 /hpf (0-5)
[2024-04-29 20:33] LABS: Amphetamines Screen Urine Positive (Negative); Barbiturates Screen Urine Negative (Negative); Benzodiazepines Screen Urine Positive (Negative); Cocaine Screen Urine Negative (Negative); Opiate Screen Urine Negative (Negative); PCP Screen Urine Negative (Negative); THC Screen Urine Positive (Negative)
[2024-04-29] MEDS: quetiapine 300 mg Tablet 150 MG PO (22:08)
[2024-04-29 22:50] LABS: Lithium 0.1 mmol/L (0.6-1.2)
[2024-04-29] MEDS: lithium carbonate 300 mg Capsule PO (23:11)
--- NOTE | 2024-04-29 23:30 | PC.NURSE ---
notified that pts lithium levels had not been ordered. Physician ordered that [place] 300mg PO be held until [place] levels came back.
[2024-04-30] VITALS (7 sets, daily range): BP systolic 101–158; BP diastolic 58–88; PULSE 77–96; RESP 16–18; TEMP 36.4–37; O2SAT 97–99
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
[2024-04-30] MEDS: thiamine 100 mg Tablet PO (07:51)
[2024-04-30] MEDS: multivitamin therapeutic Tablet 1 TAB PO (07:51)
[2024-04-30] MEDS: lithium carbonate 300 mg Capsule PO ×2 (07:52→20:14)
[2024-04-30] MEDS: folic acid 1 mg Tablet PO (07:52)
--- NOTE | 2024-04-30 08:09 | PC.NURSE ---
PT CURRENTLY DENIES SI/HI/AH/VH. PT CURRENTLY DENIES DEPRESSION. PT CURRENTLY ENDORSES ANXIETY RATING IT A 6/10 ON A 0-10 SCALE WHERE 0 IS NONE AND 10 IS THE WORST POSSIBLE. PT SCORED AN 8 ON THE CIWA ASSESSMENT WHICH SHOWED THAT SHE DOES NOT CURRENTLY REQUIRE ANY PRN MEDICATIONS PER PROTOCOL. PT CURRENT NEEDS ARE MET AT THIS TIME.
--- NOTE | 2024-04-30 09:24 | PC.OT ---
OT EVALUATION ATTEMPTED. PATIENT STATES, NOT RIGHT NOW
[2024-04-30] MEDS: nicotine 2 mg Gum BUCCAL ×3 (11:05→17:36)
[2024-04-30] MEDS: OLANZapine 5 mg ODT PO (11:05)
[2024-04-30] MEDS: haloperidol 5 mg Tablet PO (17:15)
[2024-04-30] MEDS: quetiapine 300 mg Tablet 150 MG PO (20:14)
[2024-04-30] MEDS: LORazepam 1 mg Tablet PO (21:20)
[2024-05-01] VITALS: BP 97/63; PULSE 77; RESP 18; O2SAT 98
[2024-05-01 04:00] VITALS: BP 99/65; PULSE 80; RESP 17; TEMP 36.6; O2SAT 99
[2024-05-01 08:00] VITALS: BP 109/70; PULSE 78; RESP 16; TEMP 36.7; O2SAT 97
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
[2024-05-01] MEDS: lithium carbonate 300 mg Capsule PO ×2 (08:35→20:23)
[2024-05-01] MEDS: thiamine 100 mg Tablet PO (08:35)
[2024-05-01] MEDS: OLANZapine 5 mg ODT PO ×2 (08:35→15:25)
[2024-05-01] MEDS: folic acid 1 mg Tablet PO (08:36)
[2024-05-01] MEDS: multivitamin therapeutic Tablet 1 TAB PO (08:36)
[2024-05-01] MEDS: hyDROXYzine 25 mg Capsule 50 MG PO (11:58)
[2024-05-01 12:00] VITALS: BP 125/87; PULSE 91; RESP 17; O2SAT 97
[2024-05-01] MEDS: nicotine 2 mg Gum BUCCAL (15:25)
[2024-05-01 16:00] VITALS: BP 113/76; PULSE 90; RESP 17; TEMP 36.6; O2SAT 98
[2024-05-01 20:00] VITALS: BP 112/70; PULSE 87; RESP 16; TEMP 36.7; O2SAT 98
[2024-05-01] MEDS: LORazepam 2 mg Tablet PO (20:23)
[2024-05-01] MEDS: quetiapine 300 mg Tablet 150 MG PO (20:23)
[2024-05-01] MEDS: benztropine 1 mg Tablet PO (21:02)
[2024-05-01] MEDS: diphenhydrAMINE 50 mg Capsule PO (23:02)
[2024-05-02] VITALS: BP 126/70; PULSE 95; RESP 18; O2SAT 96
[2024-05-02 04:00] VITALS: BP 112/78; PULSE 84; RESP 16; TEMP 36.6; O2SAT 97
[2024-05-02 08:00] VITALS: BP 106/70; PULSE 83; RESP 17; TEMP 36.7; O2SAT 96
[2024-05-02] MEDS: multivitamin therapeutic Tablet 1 TAB PO (09:10)
[2024-05-02] MEDS: thiamine 100 mg Tablet PO (09:10)
[2024-05-02] MEDS: folic acid 1 mg Tablet PO (09:10)
[2024-05-02] MEDS: lithium carbonate 300 mg Capsule PO ×2 (09:10→21:23)
[2024-05-02] MEDS: nicotine 2 mg Gum BUCCAL (09:11)
[2024-05-02] MEDS: OLANZapine 5 mg ODT PO ×2 (11:25→15:20)
[2024-05-02 12:00] VITALS: BP 115/81; PULSE 91; RESP 16; O2SAT 97
[2024-05-02] MEDS: haloperidol 5 mg Tablet PO ×2 (12:14→17:53)
[2024-05-02] MEDS: nicotine 4 mg lozenge MUCOUS MEM ×4 (12:15→21:23)
[2024-05-02] MEDS: hyDROXYzine 25 mg Capsule 50 MG PO ×2 (13:53→21:23)
--- NOTE | 2024-05-02 15:20 | PC.NURSE ---
zyprexa patient requesting medication for anxiety. patient agreeable to take zyprexa. patient also given pages for coloring. patient was wanting something for alcohol withdrawals, but does not meet requirements per [facility] protocol
[2024-05-02 16:00] VITALS: BP 122/89; PULSE 89; RESP 17; TEMP 36.7; O2SAT 97
[2024-05-02 19:56] VITALS: BP 127/82; PULSE 96; RESP 18; TEMP 36.6; O2SAT 100
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
[2024-05-02] MEDS: quetiapine 300 mg Tablet 150 MG PO (21:24)
[2024-05-03] VITALS: BP 120/70; RESP 16
[2024-05-03] MEDS: OLANZapine 5 mg ODT PO ×2 (00:12→14:44)
[2024-05-03 03:53] VITALS: BP 137/92; PULSE 83; RESP 16; TEMP 36.8; O2SAT 99
[2024-05-03] MEDS: thiamine 100 mg Tablet PO (08:42)
[2024-05-03] MEDS: multivitamin therapeutic Tablet 1 TAB PO (08:42)
[2024-05-03] MEDS: folic acid 1 mg Tablet PO (08:42)
[2024-05-03] MEDS: lithium carbonate 300 mg Capsule PO ×2 (08:42→21:36)
[2024-05-03] MEDS: nicotine 4 mg lozenge MUCOUS MEM ×4 (11:28→19:52)
--- NOTE | 2024-05-03 14:24 | PC.NURSE ---
pt refused vital signs. asked pt to obtain vital signs, pt stated no.
[2024-05-03] MEDS: haloperidol 5 mg Tablet PO (15:23)
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
[2024-05-03] MEDS: hyDROXYzine 25 mg Capsule 50 MG PO (17:48)
[2024-05-03 19:38] VITALS: BP 139/89; PULSE 96; RESP 16; TEMP 36.6; O2SAT 98
[2024-05-03] MEDS: diphenhydrAMINE 50 mg Capsule PO (19:52)
[2024-05-03] MEDS: trazodone 50 mg Tablet PO (19:52)
[2024-05-03] MEDS: quetiapine 300 mg Tablet 150 MG PO (21:36)
[2024-05-03 22:00] VITALS: BP 139/89; PULSE 96; RESP 16; TEMP 36.6; O2SAT 98
[2024-05-04 06:00] VITALS: BP 113/79; PULSE 92; RESP 16; TEMP 36.6; O2SAT 97
[2024-05-04] MEDS: lithium carbonate 300 mg Capsule PO ×2 (09:39→21:23)
[2024-05-04] MEDS: multivitamin therapeutic Tablet 1 TAB PO (09:39)
[2024-05-04] MEDS: folic acid 1 mg Tablet PO (09:39)
[2024-05-04] MEDS: thiamine 100 mg Tablet PO (09:39)
[2024-05-04] MEDS: hyDROXYzine 25 mg Capsule 50 MG PO ×2 (09:40→15:08)
[2024-05-04] MEDS: nicotine 4 mg lozenge MUCOUS MEM ×3 (09:40→17:50)
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
--- NOTE | 2024-05-04 11:13 | PC.NURSE ---
This nurse talked with Justen, . Patient's current address is [address] [place] [address]. Justen was agreeable to having Susan discharge to his house, but that he is in the process of moving to [facility], [address] [facility] within the next couple of days. Dr. Everett notified.
--- NOTE | 2024-05-04 11:17 | PC.NURSE ---
This nurse talked with Carolyn, a friend of patient. Phone number [phone]. Patient lives at [address] [place] [address] in [place]. Carolyn stated that she is fine with Susan being discharged to her home. Carolyn said that the two met at a store, and have been friends since then.
[2024-05-04] MEDS: OLANZapine 5 mg ODT PO ×2 (12:13→16:37)
[2024-05-04 14:00] VITALS: BP 123/85; PULSE 114; RESP 17; TEMP 36.6; O2SAT 98
[2024-05-04 20:04] VITALS: BP 124/85; PULSE 100; RESP 18; TEMP 37; O2SAT 99
[2024-05-04] MEDS: trazodone 50 mg Tablet PO (21:23)
[2024-05-04] MEDS: benztropine 1 mg Tablet PO (21:23)
[2024-05-04] MEDS: quetiapine 300 mg Tablet 150 MG PO (21:23)
[2024-05-04] MEDS: diphenhydrAMINE 50 mg Capsule PO (21:23)
[2024-05-05 06:00] VITALS: BP 112/78; PULSE 99; RESP 16; TEMP 36.6; O2SAT 98; BMI 33.7
[2024-05-05] MEDS: multivitamin therapeutic Tablet 1 TAB PO (08:21)
[2024-05-05] MEDS: thiamine 100 mg Tablet PO (08:21)
[2024-05-05] MEDS: nicotine 4 mg lozenge MUCOUS MEM ×4 (08:21→22:36)
[2024-05-05] MEDS: lithium carbonate 300 mg Capsule PO ×2 (08:21→20:29)
[2024-05-05] MEDS: folic acid 1 mg Tablet PO (08:21)
[2024-05-05] MEDS: hyDROXYzine 25 mg Capsule 50 MG PO (12:29)
[2024-05-05 14:00] VITALS: BP 125/85; PULSE 109; RESP 18; O2SAT 96
[2024-05-05] MEDS: OLANZapine 5 mg ODT PO ×2 (14:21→20:30)
[2024-05-05] MEDS: haloperidol 5 mg Tablet PO (16:42)
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
[2024-05-05 20:11] VITALS: BP 124/76; PULSE 87; RESP 18; TEMP 36.9; O2SAT 97
[2024-05-05] MEDS: trazodone 50 mg Tablet PO ×2 (20:29→22:36)
[2024-05-05] MEDS: diphenhydrAMINE 50 mg Capsule PO (20:30)
--- NOTE | 2024-05-05 23:09 | PC.NURSE ---
this [employer] MACHINE supervised as this pt clipped her toenails
[2024-05-06 06:00] VITALS: BP 99/64; PULSE 88; RESP 16; TEMP 36.6; O2SAT 97
[2024-05-06] MEDS: multivitamin therapeutic Tablet 1 TAB PO (09:15)
[2024-05-06] MEDS: lithium carbonate 300 mg Capsule PO (09:15)
[2024-05-06] MEDS: hyDROXYzine 25 mg Capsule 50 MG PO (09:15)
[2024-05-06] MEDS: thiamine 100 mg Tablet PO (09:15)
[2024-05-06] MEDS: folic acid 1 mg Tablet PO (09:15)
[2024-05-06] MEDS: nicotine 4 mg lozenge MUCOUS MEM ×3 (09:15→14:32)
[2024-05-06] MEDS: OLANZapine 5 mg ODT PO (12:25)
[2024-05-06 14:00] VITALS: BP 123/72; PULSE 92; RESP 18; TEMP 36.9; O2SAT 99
--- NOTE | 2024-05-06 14:01 | W.PM.NPUDCS ---
Diagnoses at Discharge Discharge Diagnosis (1) Alcohol dependence: Status: Acute Permanent problem details: The patient has completed [facility] detoxification. However, achieving sobriety is ongoing. (2) Major depression: Status: Acute Qualifiers: Active/Remission status: currently active Major depression episode severity: severe Major depression recurrence: recurrent Psychotic features: without psychotic features Qualified Code(s): F33.2 - Major depressive disorder, recurrent severe without psychotic features Permanent problem details: The patient was despondent, hopeless and thinking of killing herself. The symptoms have resolved. (3) Suicidal ideation: Status: Acute (4) Methamphetamine use disorder, severe: Status: Acute (5) Cannabis use disorder: Status: Acute (6) Alcohol use disorder: Status: Acute (7) Alcohol withdrawal: Status: Acute Reason for Visit Reason for Visit: SI/ HI Brief History: History of Present Illness Susan Hernandez is a 34 year old female who presented to the emergency department with the following report: Chief Complaint: Psychiatric Symptoms Stated Complaint: SI/ HI Time Seen by Provider: 04/29/24 02:14 History of Present Illness: 34-year-old female with a history of psychiatric disease. She presents with suicidal ideation. Her plan was to jump off a bridge this morning. She is somewhat intoxicated with alcohol but answering all questions appropriately. She denies other medical problems or illnesses. She was admitted to the neuropsychiatric unit for definitive treatment of those issues. She is known to [facility] psychiatric services through 2 previous inpatient stays over 4 years ago and some recent limited outpatient services. An excerpt of her November 2019 inpatient evaluation is included below for historical context. She presents today reporting: Chief complaint The patient is currently homeless, has been off medication, and has been using drugs. History of the present complaint The patient reported that they have been taking Sopro and Seroquel for their mental health, but it was noted that they had not been taking these medications prior to their current hospital visit. The patient has a history of hospitalization in psychiatric facilities, with the most recent instance being approximately four years ago. The exact number of hospitalizations and the number of different hospitals visited was not specified. The patient has a history of substance use, including alcohol and unspecified drugs. They admitted to having been to rehab when they were 15 years old and have a history of driving under the influence. However, they denied any other charges related to substance use. The patient suggested that their psychosis may be related to their methamphetamine use, but this was not confirmed. The patient reported that they are currently homeless and do not have a source of income. They mentioned having performed a ceremony, but it was unclear what this referred to. The patient did not specify any current symptoms, problems, or concerns related to their mental health, nor did they mention any triggers, risk factors, or functional and emotional impairments. There was no mention of any significant events, traumas, thoughts, beliefs, feelings, aspirations, fears, dreams, or nightmares. The patient did not discuss any previous treatments, interventions, or therapies beyond their current medications. Mental health history The patient has a history of mental health issues, including psychosis and depression. The patient has been hospitalized multiple times in psychiatric hospitals, with the last known admission approximately four years ago. The patient has been taking Sopro and Seroquel, but had stopped taking them prior to the current consultation. The patient has also been to rehab at the age of 15. Social history The patient has a history of substance abuse, including alcohol, cannabis, cocaine, methamphetamine, and opiates. The patient has been charged with DUI/DWI in the past. The patient is currently homeless and does not have a steady source of income. The patient has not been working recently. Per her 11/29/2019 [facility] inpatient psychiatric evaluation: History of Present Illness Chief complaint: I was thinking about killing myself History of present illness:Susan Hernandez is a 29 year old female who finds herself with overwhelming psychosocial problems that seem to have no solution. She has been drinking over 1/5 of vodka daily for over a month. She was feeling hopeless and overwhelmed. She has poor hedonic capacity. She engages in no enjoyable activities. She is cut off from psychosocial support. She is she is sad and blue on a daily basis. Killing herself seem to be a reasonable option. She denies the presence of auditory or visual hallucinations. She denies a history of manic symptoms. She is drinking over 1/5 of liquor per day for the past month. She wakes up at night with the shakes and tremors. She denies blackouts. She admits to craving. She has never had seizures or delirium tremens as a result of stopping her alcohol. She has had problems with alcohol and substance abuse in the past. She went through an inpatient rehabilitation program at age 15. She does not feel that rehabilitation is necessary at this time if she can just develop a reasonable plan to help with her stressors. These are listed below under social history. She has 1 prior DWI 4 years ago. Mental health history: She has had at least 5 prior admissions. Her last was 5 months ago. It was at [facility] in [place]. It was a similar situation. She was off of her medications and again started drinking. She takes Prozac and trazodone and something for anxiety and those usually help her significantly. However she did not have the money to continue her medications though she did have the money to start drinking again. She has had suicidal thoughts before. She has considered walking in front of cars. She has overdosed on at least one occasion though apparently and not with lethality. Social history: The patient grew up in [place] which is [place] near [place]. She dropped out of school in ninth grade because it just was not for me. 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 She is largely estranged from most of her family. She does still have contact with her father who lives in [place]. However she was vague in stating that he could not help at this time. A month ago, she came to the conclusion that continuing to live in [place] was going to and badly and that she needed to leave. She somehow contacted a man from [place] who invited her to live with him. She is now been here for a month. She is sharing an apartment with 2 other men. Things have turned badly in that situation. He apparently felt that this was going to be a romantic relationship of some sort. She was not of that understanding. She is paying rent for the apartment. He tried to kick her out but police informed him that since she paid rent, she does have that access to that apartment through the end of the month. She has no good explanation as to why someone from [place] would pick [place] as her destination. She says that she just sort of met him online. She was just looking for some place to go. When she loses her access to these apartment, she would be homeless. Legal history: She has no felony arrests. She has an arrest in September 2019 for possession of drug paraphernalia. She has 1 prior DWI and leaving the scene of an accident. Past medical history: Allergies: No known drug allergies Medications: She is on no medications at this time. Previously she was taking Prozac, trazodone, and something for anxiety Surgeries: She had a unilateral oophorectomy and has had surgery for a broken leg. She is 7 para 5. She would like to be on control. Hospital Course Hospital Course During the hospitalization, the patient had routine laboratory studies which were within normal limits except for a few outliers.? Additionally, there was a general medical evaluation which was also within normal limits and revealed no new acute processes.? At the time of discharge, lethality was denied and psychosis was resolving.? Mood and anxiety were well managed.? The patient endorsed a plan to avoid all drugs of abuse and follow up with the aftercare recommendations of the treatment team.? The patient was evaluated and deemed to be absent credible lethality and had achieved the maximum benefit from an inpatient hospitalization, and so was discharged. ?The patient was restarted on her medications including lithium carbonate and Seroquel as previously prescribed with improvement in mood noted. Involuntary Hold Information 96 Hour Hold: 96 Hour Involuntary Admission: Yes 96 Hour Hold Ending Date: 05/06/24 96 Hour Hold Ending Time: 12:01 Other Hold: Hold End Date: 05/06/24 Mental Status Exam MSE Comments: This is an overweight versus obese -Angolan female in hospital scrubs with limited grooming and eye contact. No abnormal movements, except for significant psychomotor retardation. She was cooperative with exam in mild to moderate distress. Speech was normal in rate and volume. Mood described as better. Her affect appeared brighter on discharge. Thought process was linear. Thought content: patient endorsed no suicidal and no homicidal ideation. There were no delusions endorsed. She denied current auditory or visual hallucinations but does acknowledge she has experienced that in the past. Attention and concentration appeared intact, and memory was mostly reliable reliable, but none were formally tested. She is alert and oriented times person and place and time. Insight was minimal and judgment appears better. Impulse control is improved. Discharge Data Studies Completed and Pending: Laboratory Results WBC 11.04 10^3/uL (3. 29-11.43) 04/29/24 02:30 RBC 4.24 10^6/uL (3.8 5-5.65) 04/29/24 02:30 Hgb 14.10 g/dL (11.27 -16.99) 04/29/24 02:30 Hct 42.7 % (36-47) 04/29/24 02:30 MCV 100.7 fl (85-98) H 04/29/24 02:30 MCH 33.3 pg (27-33) H 04/29/24 02:30 MCHC 33.0 g/dL (30-55) 04/29/24 02:30 RDW 12.9 % (12.1-15.1 ) 04/29/24 02:30 Plt Count 332 10^3/cmm (157 -399) 04/29/24 02:30 MPV 10.4 fL (7.4-10.4 ) 04/29/24 02:30 Neut % (Auto) 25.3 % 04/29/24 02:30 Lymph % (Auto) 60.9 % 04/29/24 02:30 [place] % (Auto) 7.4 % 04/29/24 02:30 Eos % (Auto) 5.2 % 04/29/24 02:30 Baso % (Auto) 1.0 % 04/29/24 02:30 Neut # (Auto) 2.80 10^3/uL (1.8 -7.7) 04/29/24 02:30 Lymph # (Auto) 6.7 10^3/uL (0.8- 4.8) H 04/29/24 02:30 Vigo # (Auto) 0.8 10^3/uL (0.2- 0.9) 04/29/24 02:30 Eos # (Auto) 0.6 10^3/uL (0.0- 0.8) 04/29/24 02:30 Baso # (Auto) 0.1 10^3/uL (0.0- 0.1) 04/29/24 02:30 Nucleated RBC % (a uto) 0 % 04/29/24 02:30 Nucleated RBCs # 0.0 /100WBC 04/29/24 02:30 Sodium 143 mmol/L (136-1 45) 04/29/24 02:30 Potassium 3.5 mmol/L (3.5-5 .1) 04/29/24 02:30 Chloride 106 mmol/L (98-10 7) 04/29/24 02:30 Carbon Dioxide 23 mmol/L (22-29) 04/29/24 02:30 Anion Gap 17.5 (5-19) 04/29/24 02:30 BUN 9 mg/dL (6-20) 04/29/24 02:30 Creatinine 0.6 mg/dL (0.5-0. 9) 04/29/24 02:30 GFR Calculation 137.7 mL/min (90- 130) H 04/29/24 02:30 Glucose 107 mg/dL (65-115 ) 04/29/24 02:30 Calculated Osmolal ity 295 mOsm/kg (285- 295) 04/29/24 02:30 Calcium 8.3 mg/dL (8.5-10 .5) L 04/29/24 02:30 Total Bilirubin 0.2 mg/dL (0.15-1 .2) 04/29/24 02:30 AST 30 U/L (0-32) 04/29/24 02:30 ALT 14 U/L (0-33) 04/29/24 02:30 Alkaline Phosphata se 107 U/L (35-105) H 04/29/24 02:30 Total Protein 7.5 g/dL (6.6-8.7 ) 04/29/24 02:30 Albumin 3.9 g/dL (3.5-5.2 ) 04/29/24 02:30 Globulin 3.6 g/dL (1.3-4.6 ) 04/29/24 02:30 TSH 2.61 uIU/mL (0.27 -4.20) 04/29/24 02:30 HCG, Qual Negative (Negati ve) 04/29/24 18:04 Urine Color Yellow (Yellow) 04/29/24 18:04 Urine Appearance Clear (CLEAR) 04/29/24 18:04 Urine pH 7.5 (5-7) 04/29/24 18:04 Ur Specific Gravit y 1.024 (1.005-1.0 30) 04/29/24 18:04 Urine Protein Negative (Negati ve) 04/29/24 18:04 Urine Glucose (UA) Negative (Normal ) 04/29/24 18:04 Urine Ketones Negative (Negati ve) 04/29/24 18:04 Urine Blood Negative (Negati ve) 04/29/24 18:04 Urine Nitrate Negative (Negati ve) 04/29/24 18:04 Urine Bilirubin Negative (Negati ve) 04/29/24 18:04 Urine Urobilinogen 1.0 mg/dL (Negati ve) 04/29/24 18:04 Ur Leukocyte [place] ase Trace (Negative) A 04/29/24 18:04 Urine RBC 0-2 /hpf (0-2) 04/29/24 18:04 Urine WBC 11-20 /hpf (0-5) H 04/29/24 18:04 Ur Squamous Epith Cells 0-5 /hpf (0-5) 04/29/24 18:04 Amorphous Sediment Not Reportable 04/29/24 18:04 Urine Bacteria Trace /hpf (NONE) 04/29/24 18:04 Hyaline Casts 0.40 /lpf 04/29/24 18:04 Salicylates < 0.3 mg/dL (3-10 ) L 04/29/24 02:30 Urine Opiates Scre en Negative ng/mL (N egative) 04/29/24 18:04 Acetaminophen 42.9 ug/mL (10-30 ) H 04/29/24 02:30 Ur Barbiturates Sc reen Negative ng/mL (N egative) 04/29/24 18:04 Ur Phencyclidine S crn Negative ng/mL (N egative) 04/29/24 18:04 Ur Amphetamines Sc reen Positive ng/mL (N egative) H 04/29/24 18:04 U Benzodiazepines Scrn Positive ng/mL (N egative) H 04/29/24 18:04 [place] 0.1 mmol/L (0.6-1 .2) L 04/29/24 02:30 Urine Cocaine Scre en Negative ng/mL (N egative) 04/29/24 18:04 U Marijuana (THC) Screen Positive ng/mL (N egative) H 04/29/24 18:04 Ethyl Alcohol 170 mg/dL (0-10) H 04/29/24 02:30 Coronavirus (PCR) Negative (Negati ve) 04/29/24 02:50 Influenza A (PCR) Negative (Negati ve) 04/29/24 02:50 Influenza Type B ( PCR) Negative (Negati ve) 04/29/24 02:50 RSV (PCR) Negative (Negati ve) 04/29/24 02:50 Vitals: Last Vital Signs Temp 97.9 F 05/06/24 06:00 Pulse 88 05/06/24 06:00 Resp 16 05/06/24 06:00 BP 99/64 05/06/24 06:00 Pulse Ox 97 05/06/24 06:00 O2 Del Method Room Air 05/06/24 06:00 Discharge Plan Discharge Patient Disposition: Home Condition: Stable Prescriptions: New thiamine mononitrate (vit B1) [Vitamin B-1 (mononitrate)] 100 mg Tablet 100 mg PO DAILY 30 Days Qty: 30 1RF hydroxyzine pamoate 25 mg Capsule 50 mg PO Q6H PRN (Reason: Anxiety) 30 Days Qty: 90 1RF folic acid 1 mg Tablet 1 mg PO DAILY 30 Days Qty: 30 1RF Continued lithium carbonate 300 mg Capsule 300 mg PO 09, Vivitrol 380 mg Suspension,Extended Rel Recon 380 mg IM Q28D Qty: 1 1RF Rx Instructions: Next IM monthly shot due 05/10/24 Changed quetiapine [Seroquel] 100 mg Tablet 150 mg PO 2100 Qty: 45 1RF Discharge Orders: Discharge Order (Routine); Ordered 05/06/24 Ordered By: German Samaniego Referrals: [facility] [Outside] - 05/13/24 3:30 pm (Initial assessment for services by Telehealth with Sheba Rogers) Discharge Diet: Usual diet Discharge Activity: Resume usual activity Patient Instructions: Depression (DC), Anxiety (DC), Suicide Prevention (DC), Opioid Safety Discharge Attestations NPU Time Spent in Discharge Care*: less than 30 min Specific Discharge Activities: Specific discharge activities: educating patient and documenting/other paperwork Status at Discharge: Cognitive status at discharge: cognitively intact, Behavioral status at discharge: cooperative, Coding Level of Care Code Acute Code for [facility] Fwd Diagnoses Alcohol dependence with uncomplicated withdrawal F10.20 Severe episode of recurrent major depressive disorder, without psychotic features F33.2 Active/Remission status: currently active Major depression episode severity: severe Major depression recurrence: recurrent Psychotic features: without psychotic features Suicidal ideation R45.851 Methamphetamine use disorder, severe F15.20 Cannabis use disorder F12.90 Alcohol use disorder F10.90 Alcohol withdrawal F10.939
[2024-05-06 14:19] VITALS: BP 123/72; PULSE 92; RESP 18; TEMP 36.9; O2SAT 99
[2024-05-06] MEDS: haloperidol 5 mg Tablet PO (14:32)
== END 2024-05-06 15:13 | disposition home or self-care (01) | DRG 885 ==
LOC: ER 06:02 → ER IP 07:50 → NP 10:07
PROVIDERS: Admitting Provider Psychiatry & Neurology Psychiatry; Emergency Provider Emergency Medicine; Visit Provider Psychiatry & Neurology Psychiatry
DX: F33.2 Major depressive disorder, recurrent severe without psychotic features (principal); F15.20 Other stimulant dependence, uncomplicated; Z59.00 Homelessness unspecified; R45.851 Suicidal ideations; F10.239 Alcohol dependence with withdrawal, unspecified; Z59.9 Problem related to housing and economic circumstances, unspecified; E66.9 Obesity, unspecified; Z68.33 Body mass index [BMI] 33.0-33.9, adult; F17.200 Nicotine dependence, unspecified, uncomplicated; T43.596A Underdosing of other antipsychotics and neuroleptics, initial encounter; Z91.148 Patient's other noncompliance with medication regimen for other reason; F10.229 Alcohol dependence with intoxication, unspecified; Y90.6 Blood alcohol level of 120-199 mg/100 ml
CPT/HCPCS: 0241U; 80053; 80178; 80306; 80307; 81001; 81025; 84443; 85025; 97150; 97165; 99285; Q0163

== ENCOUNTER 2024-06-04 11:32 | Emergency (ER) | payer MEDICAID, SELFPAY ==
[2024-06-04 11:34] VITALS: BP 150/94; PULSE 87; RESP 18; TEMP 36.8; O2SAT 98; BMI 33.3
--- NOTE | 2024-06-04 11:41 | USCV_ITS ---
Susan Hernandez Age: 34 Gender: F : 1990 Exam Date: 06/04/2024 12:32 Ordering Phys: Sameera Shin MD Technologist: R Exam Location: [facility] Indication: Left leg pain PROCEDURES: Venous duplex imaging was performed in only the left lower extremity. The following venous structures were evaluated: common femoral vein, profunda vein, proximal portion of the greater saphenous vein, superficial femoral vein, and the popliteal vein. In addition, the posterior tibial and peroneal trunk were evaluated. FINDINGS: No evidence of DVT seen in any vessel visualized at this time. CONCLUSIONS No evidence of left lower extremity DVT. Ezra Padilla MD (Electronically Signed) Final Date: 04 June 2024 17:05 S
--- NOTE | 2024-06-04 12:24 | ED_ITS ---
HPI - Extremity Problem General: Chief complaint: Extremity Injury, Lower Stated complaint: left leg swelling Time Seen by Provider: 06/04/24 11:41 Source: patient Mode of arrival: ambulatory Limitations: no limitations History of Present Illness: 34-year-old female states she is walking the other day tripped and felt a strain in her left calf states she is been having pain in that calf since then. States pain is sharp in nature rates it a 6 out of 10 is much worse with walking but is able to ambulate. Denies any other injuries. She is concerned she may have a blood clot Associated symptoms: Deny chest pain, fever(s) or rash Related Data Home Medications Medication Instructions Recorded Confirmed lithium carbonate 300 mg capsule 300 mg PO ,04/29/24 06/04/24 Previous Rx's Medication Instructions Recorded folic acid 1 mg tablet 1 mg PO DAILY 30 days #30 tabs 05/06/24 hydroxyzine pamoate 25 mg capsule 50 mg (2 x 25 mg) PO Q6H PRN 05/06/24 Anxiety 30 days #90 caps naltrexone microspheres 380 mg 380 mg IM Q28D #1 ea 05/06/24 intramuscular suspension,extended release (Vivitrol) quetiapine 100 mg tablet (Seroquel) 150 mg (1.5 x 100 mg) PO 2100 #45 05/06/24 tabs thiamine mononitrate (vit B1) 100 100 mg PO DAILY 30 days #30 tabs 05/06/24 mg tablet (Vitamin B-1 (mononitrate)) Allergies Allergy/AdvReac Type Severity Reaction Status Date / Time No Known Allergies Allergy Verified 06/04/24 11:34 Review of Systems Const: Denies: fever(s), chills, body aches or change in appetite ENMT: Denies: throat pain or dental pain Card: Denies: chest pain Resp: Denies: dyspnea GI: Denies: abdominal pain, nausea, vomiting or diarrhea Musc: Reports: extremity pain; Denies: neck pain or back pain Skin/Breast: Denies: rash Neuro: Denies: headache(s) PFSH ED PFSH: Medical History Psychiatric care Social History Smoking and tobacco/nicotine status: current every day tobacco/nicotine user Physical Exam Const: COMMON NORMALS: no acute distress, patient oriented x3 and healthy appearing HENMT: COMMON NORMALS: normocephalic and atraumatic HEAD & SCALP: normocephalic and atraumatic Eye: COMMON NORMALS: conjunctivae normal CONJUNCTIVA: Yes conjunctivae normal Neck/C-Spine: COMMON NORMALS: full ROM and supple Chest: COMMONS NORMALS: normal inspection of the chest Resp: COMMON NORMALS: normal respiratory effort Cardio: COMMON NORMALS: regular rate RATE: regular rate Extremity: COMMON NORMALS: normal to inspection and full ROM NARRATIVE EXTREMITY EXAM: Some tenderness noted to left calf no obvious swelling distal pulses intact no redness Neuro: COMMON NORMALS: patient oriented x3, moves all extremities and no focal motor deficits Psych: COMMON NORMALS: mental status grossly normal, Normal thought process present and cooperative THOUGHT PROCESS: Normal thought process present Skin: COMMON NORMALS: no rashes or lesions noted and no wounds GENERAL SKIN EXAM: no rashes or lesions noted Course Vital Signs: Vital signs: Vital Signs Temperature 98.2 F 06/04/24 11:34 Pulse Rate 87 06/04/24 11:34 Respiratory Rate 18 06/04/24 11:34 Blood Pressure 150/94 06/04/24 11:34 Pulse Oximetry 98 06/04/24 11:34 MDM - Extremity (Nontraumatic) Medical Decision Making Patient presents for left leg pain is likely a muscle strain exam here is negative ultrasound is negative she is stable for discharge follow-up with PCP return if worsening. Medical Records I reviewed the patient's medical records. All radiology interpretation(s) finalized by discharge Discharge Plan Discharge Patient Disposition: Home Clinical Impression: Leg pain, left Condition: Stable Prescriptions: No Action lithium carbonate 300 mg Capsule 300 mg PO , thiamine mononitrate (vit B1) [Vitamin B-1 (mononitrate)] 100 mg Tablet 100 mg PO DAILY 30 Days Qty: 30 1RF hydroxyzine pamoate 25 mg Capsule 50 mg PO Q6H PRN (Reason: Anxiety) 30 Days Qty: 90 1RF folic acid 1 mg Tablet 1 mg PO DAILY 30 Days Qty: 30 1RF quetiapine [Seroquel] 100 mg Tablet 150 mg PO 2100 Qty: 45 1RF Vivitrol 380 mg Suspension,Extended Rel Recon 380 mg IM Q28D Qty: 1 1RF Rx Instructions: Next IM monthly shot due 05/10/24 Discharge Orders: Discharge ED (Routine); Ordered 06/04/24 Ordered By: Sameera Shin Discharge Diet: Advance as tolerated Discharge Activity: Resume usual activity Patient Instructions: Leg Pain (ED) Coding Level of Care Code ED Wet Pan Operator for Janet Bedoya
[2024-06-04] MEDS: naproxen 500 mg Tablet PO (12:31)
[2024-06-04 13:09] VITALS: BP 141/90; PULSE 81; O2SAT 99
[2024-06-04 13:10] VITALS: BP 141/90; PULSE 81; O2SAT 98
== END 2024-06-04 13:16 | disposition home or self-care (01) ==
PROVIDERS: Emergency Provider Emergency Medicine
DX: M79.605 Pain in left leg (principal); Z72.0 Tobacco use
CPT/HCPCS: 93971; 99284

== ENCOUNTER 2024-06-10 19:32 | Inpatient (IN) | payer MEDICAID, SELFPAY ==
[2024-06-10 19:49] VITALS: BP 125/78; PULSE 102; RESP 16; TEMP 36.4; O2SAT 97
--- NOTE | 2024-06-10 20:17 | ED.C_ITS ---
HPI - Psych 2 General: Chief Complaint: Psychiatric Symptoms Stated Complaint: stated HI SI Time Seen by Provider: 06/10/24 19:37 History of Present Illness: 34-year-old female with history of deprburton fine who presents emergency room with suicidal ideation. She says [place] and family not wanting to be around her have made her depression worse. She also had run out of her medications a week or 2 ago and this is worsened things as well. She says she has lots of different plans to kill herself. Related Data Home Medications Medication Instructions Recorded Confirmed lithium carbonate 300 mg capsule 300 mg PO 09,04/29/24 06/04/24 Previous Rx's Medication Instructions Recorded folic acid 1 mg tablet 1 mg PO DAILY 30 days #30 tabs 05/06/24 hydroxyzine pamoate 25 mg capsule 50 mg (2 x 25 mg) PO Q6H PRN 05/06/24 Anxiety 30 days #90 caps naltrexone microspheres 380 mg 380 mg IM Q28D #1 ea 05/06/24 intramuscular suspension,extended release (Vivitrol) quetiapine 100 mg tablet (Seroquel) 150 mg (1.5 x 100 mg) PO 2100 #45 05/06/24 tabs thiamine mononitrate (vit B1) 100 100 mg PO DAILY 30 days #30 tabs 05/06/24 mg tablet (Vitamin B-1 (mononitrate)) Allergies Allergy/AdvReac Type Severity Reaction Status Date / Time No Known Allergies Allergy Verified 06/10/24 19:53 Review of Systems 2 Narrative: Constitutional symptoms: Negative except as documented in HPI. Skin symptoms: Negative except as documented in HPI. Eye symptoms: Negative except as documented in HPI. ENMT symptoms: Negative except as documented in HPI. Respiratory symptoms: Negative except as documented in HPI. Cardiovascular symptoms: Negative except as documented in HPI. Gastrointestinal symptoms: Negative except as documented in HPI. Genitourinary symptoms: Negative except as documented in HPI. Musculoskeletal symptoms: Negative except as documented in HPI. Neurologic symptoms: Negative except as documented in HPI. Psychiatric symptoms: Negative except as documented in HPI. Endocrine symptoms: Negative except as documented in HPI. PFSH ED 2 PFSH: Medical History Psychiatric care Social History Smoking and tobacco/nicotine status: current every day tobacco/nicotine user Physical Exam 2 Narrative: EXAM NARRATIVE: General: Alert. no acute distress Skin: Warm, dry Head: Normocephalic, atraumatic. Neck: Supple, trachea midline. Eye: Extraocular movements are intact. Ears, nose, mouth and throat: Oral mucosa moist. Cardiovascular: Regular rate and rhythm, Normal peripheral perfusion. Respiratory: Lungs are clear to auscultation, respirations are non-labored, breath sounds are equal, Symmetrical chest wall expansion. Gastrointestinal: Soft, Nontender, Non distended, Normal bowel sounds. Musculoskeletal: Normal ROM, no deformity. Neurological: Alert and oriented to person, place, time, and situation, No focal neurological deficit observed. Psychiatric: Cooperative, depressed, expresses suicidal ideation. Course 2 Vital Signs: Vital signs: Vital Signs Temperature 97.5 F L 06/10/24 19:49 Pulse Rate 102 H 06/10/24 19:49 Respiratory Rate 16 06/10/24 19:49 Blood Pressure 125/78 06/10/24 19:49 Pulse Oximetry 97 06/10/24 19:49 Oxygen Delivery Me thod Room Air 06/10/24 19:49 MDM - Psych Medical Decision Making Differential diagnosis: Patient with reported depression and suicidal ideation. concerns for infection, alcohol intoxication, cardiac issues or other medical problems prior to psychiatric admission. Workup: labwork, ekg ordered to evaluate the pathologies and to clear the patient medically prior to psychiatric admission Lab Review: Laboratory results were reviewed and interpreted by myself the emergency room physician. - Medically cleared. - EKG shows no ischemic changes. - Blood alcohol level is 287, patient is alert and oriented. She is able to talk and walk. Carries on conversation normally. Does not appear overtly intoxicated. -Tylenol and salicylate levels are negative. - Drug screen is negative -Patient has urinary tract infection first dose of Omnicef here in the emergency room - No anemia. - BUN and creatinine are within normal limits. Consultation: I spoke with Dr. Samaniego with psychiatry who agrees to admission. Assessment and plan: Suicidal ideation Depression Urinary tract infection Alcohol intoxication -Admission to neuropsychiatric unit for continued evaluation and treatment. - All lab work was reviewed and interpreted personally by myself, the ER physician - Evaluation and treatment of this problem were appropriate in the emergency setting Lab Data 06/10/24 20:20 06/10/24 20:20 Laboratory Results WBC 11.08 10^3/uL (3.29-11.43) 06/10/24 20:20 RBC 4.01 10^6/uL (3.85-5.65) 06/10/24 20:20 Hgb 13.20 g/dL (11.27-16.99) 06/10/24 20:20 Hct 39.3 % (36-47) 06/10/24 20:20 MCV 98.0 fl (85-98) 06/10/24 20:20 MCH 32.9 pg (27-33) 06/10/24 20:20 MCHC 33.6 g/dL (30-55) 06/10/24 20:20 RDW 13.1 % (12.1-15.1) 06/10/24 20:20 Plt Count 319 10^3/cmm (157-399) 06/10/24 20:20 MPV 10.3 fL (7.4-10.4) 06/10/24 20:20 Neut % (Auto) 41.0 % 06/10/24 20:20 Lymph % (Auto) 49.6 % 06/10/24 20:20 [place] % (Auto) 4.7 % 06/10/24 20:20 Eos % (Auto) 3.4 % 06/10/24 20:20 Baso % (Auto) 1.0 % 06/10/24 20:20 Neut # (Auto) 4.54 10^3/uL (1.8-7.7) 06/10/24 20:20 Lymph # (Auto) 5.5 10^3/uL (0.8-4.8) H 06/10/24 20:20 [place] # (Auto) 0.5 10^3/uL (0.2-0.9) 06/10/24 20:20 Eos # (Auto) 0.4 10^3/uL (0.0-0.8) 06/10/24 20:20 Baso # (Auto) 0.1 10^3/uL (0.0-0.1) 06/10/24 20:20 Nucleated RBC % (auto) 0 % 06/10/24 20:20 Nucleated RBCs # 0.0 /100WBC 06/10/24 20:20 Sodium 144 mmol/L (136-145) 06/10/24 20:20 Potassium 3.2 mmol/L (3.5-5.1) L 06/10/24 20:20 Chloride 106 mmol/L (98-107) 06/10/24 20:20 Carbon Dioxide 25 mmol/L (22-29) 06/10/24 20:20 Anion Gap 16.2 (5-19) 06/10/24 20:20 BUN 9 mg/dL (6-20) 06/10/24 20:20 Creatinine 0.7 mg/dL (0.5-0.9) 06/10/24 20:20 GFR Calculation 115.2 mL/min (90-130) 06/10/24 20:20 Glucose 100 mg/dL (65-115) 06/10/24 20:20 Calculated Osmolality 297 mOsm/kg (285-295) H 06/10/24 20:20 Calcium 8.6 mg/dL (8.5-10.5) 06/10/24 20:20 Total Bilirubin 0.2 mg/dL (0.15-1.2) 06/10/24 20:20 AST 20 U/L (0-32) 06/10/24 20:20 ALT 11 U/L (0-33) 06/10/24 20:20 Alkaline Phosphatase 112 U/L (35-105) H 06/10/24 20:20 Total Protein 6.9 g/dL (6.6-8.7) 06/10/24 20:20 Albumin 3.9 g/dL (3.5-5.2) 06/10/24 20:20 Globulin 3.0 g/dL (1.3-4.6) 06/10/24 20:20 TSH 1.74 uIU/mL (0.27-4.20) 06/10/24 20:20 Urine Color Yellow (Yellow) 06/10/24 20:18 Urine Appearance Cloudy (CLEAR) A 06/10/24 20:18 Urine pH 6.0 (5-7) 06/10/24 20:18 Ur Specific [place] 1.017 (1.005-1.030) 06/10/24 20:18 Urine Protein Negative (Negative) 06/10/24 20:18 Urine Glucose (UA) Negative (Normal) 06/10/24 20:18 Urine Ketones Negative (Negative) 06/10/24 20:18 Urine Blood Negative (Negative) 06/10/24 20:18 Urine Nitrate Negative (Negative) 06/10/24 20:18 Urine Bilirubin Negative (Negative) 06/10/24 20:18 Urine Urobilinogen 1.0 mg/dL (Negative) 06/10/24 20:18 Ur Leukocyte Esterase 2+ (Negative) A 06/10/24 20:18 Urine RBC 0-2 /hpf (0-2) 06/10/24 20:18 Urine WBC 51-100 /hpf (0-5) H 06/10/24 20:18 Ur Squamous Epith Cells 6-10 /hpf (0-5) 06/10/24 20:18 Amorphous Sediment Not Reportable 06/10/24 20:18 Urine Bacteria 2+ /hpf (NONE) H 06/10/24 20:18 Hyaline Casts 0.40 /lpf 06/10/24 20:18 Salicylates < 0.3 mg/dL (3-10) L 06/10/24 20:20 Acetaminophen < 5.0 ug/mL (10-30) L 06/10/24 20:20 Ethyl Alcohol 287 mg/dL (0-10) H 06/10/24 20:20 No radiology studies performed this visit Discharge Plan Discharge Patient Disposition: Admitted As Inpatient Clinical Impression: Suicidal ideation, Depression, UTI (urinary tract infection), Alcohol intoxication Condition: Stable Coding Level of Care Code ED Starter Cup Powder Mixer for Janet Bedoya
[2024-06-10 20:32] LABS: Basophils # 0.1 10^3/uL (0.0-0.1); Eosinophils # 0.4 10^3/uL (0.0-0.8); Eosinophils % 3.4 %; Hematocrit 39.3 % (36-47); Lymphocytes # 5.5 10^3/uL (0.8-4.8); Lymphocytes % 49.6 %; Mean Corpuscular HGB Conc 33.6 g/dL (30-55); Mean Corpuscular Hemoglobin 32.9 pg (27-33); Mean Platelet Volume 10.3 fL (7.4-10.4); Monocytes # 0.5 10^3/uL (0.2-0.9); Monocytes % 4.7 %; Neutrophils # 4.54 10^3/uL (1.8-7.7); Nucleated Red Blood Cells % 0 %; Platelet Count 319 10^3/cmm (157-399); Red Blood Count 4.01 10^6/uL (3.85-5.65); Red Cell Distribution Width 13.1 % (12.1-15.1); White Blood Count 11.08 10^3/uL (3.29-11.43)
[2024-06-10 20:36] LABS: Bilirubin Urine Negative (Negative); Blood Urine Negative (Negative); Glucose Urine UA Negative (Normal); Ketones Urine Negative (Negative); Leukocyte Esterase Urine 2+ (Negative); Nitrate Urine Negative (Negative); Protein Urine Negative (Negative); Specific Gravity, Urine 1.017 (1.005-1.030); Urine Appearance Cloudy (CLEAR); Urine Color Yellow (Yellow)
[2024-06-10 20:41] LABS: Bacteria Urine 2+ /hpf; RBC Urine 0-2 /hpf (0-2); WBC Urine 51-100 /hpf (0-5)
[2024-06-10 20:43] LABS: Add Urine Culture? Yes
--- NOTE | 2024-06-10 20:54 | ECG_ITS ---
[facility] Test Date: 2024-06-10 Pat Name: Susan Hernandez Department: Room: Gender: Female College Service Officer: : 1990 Requested By: Isabel Rico Order Number: [id number] Garrett MD: Lauren Alcala M.D. Measurements Intervals [place] Rate: 77 P: 54 OK: 167 QRS: 66 QRSD: 86 T: 64 QT: 402 QTc: 457 Interpretive Statements SINUS RHYTHM WITH OCCASIONAL VENTRICULAR PREMATURE COMPLEXES Compared to ECG 04/07/2024 09:01:45 Ventricular premature complex(es) now present T-wave abnormality no longer present Electronically Signed On 06-11-2024 21:40:39 MUSIC PROFESSOR by Lauren Alcala M.D. [email or web address]
[2024-06-10 21:06] LABS: Alanine Aminotransferase 11 U/L (0-33); Albumin Level 3.9 g/dL (3.5-5.2); Alcohol Level 287 mg/dL (0-10); Alkaline Phosphatase 112 U/L (35-105); Anion Gap 16.2 (5-19); Aspartate Amino Transferase 20 U/L (0-32); Blood Urea Nitrogen 9 mg/dL (6-20); Calcium 8.6 mg/dL (8.5-10.5); Carbon Dioxide 25 mmol/L (22-29); Chloride 106 mmol/L (98-107); Creatinine Clr Calc Pharmacy 128.0341; Glomerular Filtration Rate 115.2 mL/min (90-130); Glucose 100 mg/dL (65-115); Osmolality Calculated 297 mOsm/kg (285-295); Potassium 3.2 mmol/L (3.5-5.1); Sodium 144 mmol/L (136-145); Thyroid Stimulating Hormone 1.74 uIU/mL (0.27-4.20); Total Bilirubin 0.2 mg/dL (0.15-1.2); Total Protein 6.9 g/dL (6.6-8.7)
[2024-06-10 21:07] LABS: Acetaminophen < 5.0 ug/mL (10-30); Salicylate < 0.3 mg/dL (3-10)
[2024-06-10 21:11] LABS: Slide Review Slide Review Perform
--- NOTE | 2024-06-10 21:20 | PC.NURSE ---
96 Pt served with copy of right by this RN and security. Pt A&Ox2, pt pleasant and asking questions about release date. All questions answered.
[2024-06-10 21:31] VITALS: BP 119/72; PULSE 98; RESP 16; O2SAT 98
[2024-06-10 21:47] VITALS: BP 119/72; PULSE 98; O2SAT 98
[2024-06-10 22:01] LABS: Amphetamines Screen Urine Negative (Negative); Barbiturates Screen Urine Negative (Negative); Benzodiazepines Screen Urine Positive (Negative); Cocaine Screen Urine Negative (Negative); Opiate Screen Urine Negative (Negative); PCP Screen Urine Negative (Negative); THC Screen Urine Positive (Negative)
[2024-06-10] MEDS: hyDROXYzine 25 mg Capsule 50 MG PO (23:36)
[2024-06-10] MEDS: nicotine 4 mg lozenge MUCOUS MEM (23:37)
[2024-06-10] MEDS: trazodone 50 mg Tablet PO (23:37)
[2024-06-10 23:56] VITALS: BP 104/63; PULSE 90; RESP 16; TEMP 36.5; O2SAT 98
[2024-06-11 04:00] VITALS: BP 106/69; PULSE 77; RESP 16; TEMP 36.8; O2SAT 96
[2024-06-11 07:57] VITALS: BP 103/60; PULSE 73; RESP 15; TEMP 36.9; O2SAT 96
[2024-06-11] MEDS: thiamine 100 mg Tablet PO (08:39)
[2024-06-11] MEDS: cefdinir 300 MG CAPSULE PO ×2 (08:39→17:14)
[2024-06-11] MEDS: multivitamin therapeutic Tablet 1 TAB PO (08:40)
[2024-06-11] MEDS: nicotine 4 mg lozenge MUCOUS MEM ×2 (08:40→17:14)
[2024-06-11] MEDS: folic acid 1 mg Tablet PO (08:40)
--- NOTE | 2024-06-11 09:13 | PC.NURSE ---
CIWA Patient scored 11 on CIWA scale. Per CIWA protocol, administered 2mg ativan PO. Will continue to monitor.
[2024-06-11 12:00] VITALS: BP 128/81; PULSE 105; RESP 17; TEMP 36.3; O2SAT 99
[2024-06-11] MEDS: OLANZapine 5 mg ODT PO (12:22)
--- NOTE | 2024-06-11 12:38 | PC.NURSE ---
zyprexa Patient reporting anxiety 10/10. Patient scoring below 10 on CIWA, so not appropriate to give ativan. Administered zyprexa 5mg ODT to patient. Patient returned to room to lie down.
--- NOTE | 2024-06-11 15:37 | W.PM.NPUH&PS ---
Providers/Chief Complaint Admitting Physician: German Samaniego MD Chief Complaint: stated HI SI HPI NPU History of Present Illness Susan Hernandez is a 34 year old female who presented to the emergency department with the following report: Chief Complaint: Psychiatric Symptoms Stated Complaint: stated HI SI Time Seen by Provider: 06/10/24 19:37 History of Present Illness: 34-year-old female with history of depression who presents emergency room with suicidal ideation. She says [place] and family not wanting to be around her have made her depression worse. She also had run out of her medications a week or 2 ago and this is worsened things as well. She says she has lots of different plans to kill herself. She was admitted to the neuropsychiatric unit for definitive treatment of those issues. She is known to [facility] through some limited outpatient and some inpatient services with her last hospitalization being in April of this year. An excerpt of her discharge summary from April is included below for context and the fact that there have been no substantive changes. She presents today reporting that she is really struggling and out of it today secondary to drug abuse and withdrawal. She reports that things have not changed much since she was here last time and she continues to struggle with being homeless and then ran out of her medication because she did not follow through with follow-up as we had discussed. She presented reporting that things were essentially the same as they were the last time she came an excerpt of that discharge summary is included below. We discussed restarting her medication and then trying to assist her and figure out something to do differently so that she does not repeat the same cycle. Per her 05/06/2024 [facility] inpatient psychiatric discharge summary: Discharge Diagnosis (1) Alcohol dependence: Status: Acute Permanent problem details: The patient has completed [facility] detoxification. However, achieving sobriety is ongoing. (2) Major depression: Status: Acute Qualifiers: Active/Remission status: currently active Major depression episode severity: severe Major depression recurrence: recurrent Psychotic features: without psychotic features Qualified Code(s): F33.2 - Major depressive disorder, recurrent severe without psychotic features Permanent problem details: The patient was despondent, hopeless and thinking of killing herself. The symptoms have resolved. (3) Suicidal ideation: Status: Acute (4) Methamphetamine use disorder, severe: Status: Acute (5) Cannabis use disorder: Status: Acute (6) Alcohol use disorder: Status: Acute (7) Alcohol withdrawal: Status: Acute Reason for Visit Reason for Visit: SI/ HI Brief History: History of Present Illness Susan Hernandez is a 34 year old female who presented to the emergency department with the following report: Chief Complaint: Psychiatric Symptoms Stated Complaint: SI/ HI Time Seen by Provider: 04/29/24 02:14 History of Present Illness: 34-year-old female with a history of psychiatric disease. She presents with suicidal ideation. Her plan was to jump off a bridge this morning. She is somewhat intoxicated with alcohol but answering all questions appropriately. She denies other medical problems or illnesses. She was admitted to the neuropsychiatric unit for definitive treatment of those issues. She is known to [facility] psychiatric services through 2 previous inpatient stays over 4 years ago and some recent limited outpatient services. An excerpt of her November 2019 inpatient evaluation is included below for historical context. She presents today reporting: Chief complaint The patient is currently homeless, has been off medication, and has been using drugs. History of the present complaint The patient reported that they have been taking Sopro and Seroquel for their mental health, but it was noted that they had not been taking these medications prior to their current hospital visit. The patient has a history of hospitalization in psychiatric facilities, with the most recent instance being approximately four years ago. The exact number of hospitalizations and the number of different hospitals visited was not specified. The patient has a history of substance use, including alcohol and unspecified drugs. They admitted to having been to rehab when they were 15 years old and have a history of driving under the influence. However, they denied any other charges related to substance use. The patient suggested that their psychosis may be related to their methamphetamine use, but this was not confirmed. The patient reported that they are currently homeless and do not have a source of income. They mentioned having performed a ceremony, but it was unclear what this referred to. The patient did not specify any current symptoms, problems, or concerns related to their mental health, nor did they mention any triggers, risk factors, or functional and emotional impairments. There was no mention of any significant events, traumas, thoughts, beliefs, feelings, aspirations, fears, dreams, or nightmares. The patient did not discuss any previous treatments, interventions, or therapies beyond their current medications. Mental health history The patient has a history of mental health issues, including psychosis and depression. The patient has been hospitalized multiple times in psychiatric hospitals, with the last known admission approximately four years ago. The patient has been taking Sopro and Seroquel, but had stopped taking them prior to the current consultation. The patient has also been to rehab at the age of 15. Social history The patient has a history of substance abuse, including alcohol, cannabis, cocaine, methamphetamine, and opiates. The patient has been charged with DUI/DWI in the past. The patient is currently homeless and does not have a steady source of income. The patient has not been working recently. Per her 11/29/2019 [facility] inpatient psychiatric evaluation: History of Present Illness Chief complaint: I was thinking about killing myself History of present illness:Susan Hernandez is a 29 year old female who finds herself with overwhelming psychosocial problems that seem to have no solution. She has been drinking over 1/5 of vodka daily for over a month. She was feeling hopeless and overwhelmed. She has poor hedonic capacity. She engages in no enjoyable activities. She is cut off from psychosocial support. She is she is sad and blue on a daily basis. Killing herself seem to be a reasonable option. She denies the presence of auditory or visual hallucinations. She denies a history of manic symptoms. She is drinking over 1/5 of liquor per day for the past month. She wakes up at night with the shakes and tremors. She denies blackouts. She admits to craving. She has never had seizures or delirium tremens as a result of stopping her alcohol. She has had problems with alcohol and substance abuse in the past. She went through an inpatient rehabilitation program at age 15. She does not feel that rehabilitation is necessary at this time if she can just develop a reasonable plan to help with her stressors. These are listed below under social history. She has 1 prior DWI 4 years ago. Mental health history: She has had at least 5 prior admissions. Her last was 5 months ago. It was at [facility] in [place]. It was a similar situation. She was off of her medications and again started drinking. She takes Prozac and trazodone and something for anxiety and those usually help her significantly. However she did not have the money to continue her medications though she did have the money to start drinking again. She has had suicidal thoughts before. She has considered walking in front of cars. She has overdosed on at least one occasion though apparently and not with lethality. Social history: The patient grew up in [place] which is up near [place]. She dropped out of school in ninth grade because it just was not for me. 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 She is largely estranged from most of her family. She does still have contact with her father who lives in [place]. However she was vague in stating that he could not help at this time. A month ago, she came to the conclusion that continuing to live in [place] was going to and badly and that she needed to leave. She somehow contacted a man from [place] who invited her to live with him. She is now been here for a month. She is sharing an apartment with 2 other men. Things have turned badly in that situation. He apparently felt that this was going to be a romantic relationship of some sort. She was not of that understanding. She is paying rent for the apartment. He tried to kick her out but police informed him that since she paid rent, she does have that access to that apartment through the end of the month. She has no good explanation as to why someone from [place] would pick [place] as her destination. She says that she just sort of met him online. She was just looking for some place to go. When she loses her access to these apartment, she would be homeless. Legal history: She has no felony arrests. She has an arrest in September 2019 for possession of drug paraphernalia. She has 1 prior DWI and leaving the scene of an accident. Past medical history: Allergies: No known drug allergies Medications: She is on no medications at this time. Previously she was taking Prozac, trazodone, and something for anxiety Surgeries: She had a unilateral oophorectomy and has had surgery for a broken leg. She is 7 para 5. She would like to be on control. Hospital Course During the hospitalization, the patient had routine laboratory studies which were within normal limits except for a few outliers. Additionally, there was a general medical evaluation which was also within normal limits and revealed no new acute processes. At the time of discharge, lethality was denied and psychosis was resolving. Mood and anxiety were well managed. The patient endorsed a plan to avoid all drugs of abuse and follow up with the aftercare recommendations of the treatment team. The patient was evaluated and deemed to be absent credible lethality and had achieved the maximum benefit from an inpatient hospitalization, and so was discharged. The patient was restarted on her medications including lithium carbonate and Seroquel as previously prescribed with improvement in mood noted. Meds NPU Home Medications Medication Instructions Recorded Confirmed Last Taken Type folic acid 1 mg tablet 1 mg PO DAILY 30 days #30 tabs 05/06/24 06/11/24 Unknown Rx hydroxyzine pamoate 25 mg capsule 50 mg (2 x 25 mg) PO Q6H PRN 05/06/24 06/11/24 Unknown Rx Anxiety 30 days #90 caps naltrexone microspheres 380 mg 380 mg IM Q28D #1 ea 05/06/24 06/11/24 05/10/24 Rx intramuscular suspension,extended 380 MG release (Vivitrol) thiamine mononitrate (vit B1) 100 100 mg PO DAILY 30 days #30 tabs 05/06/24 06/11/24 Unknown Rx mg tablet (Vitamin B-1 (mononitrate)) quetiapine 100 mg tablet (Seroquel) 150 mg PO BEDTIME 06/11/24 06/11/24 Unknown History Allergies Allergy/AdvReac Type Severity Reaction Status Date / Time No Known Allergies Allergy Verified 06/10/24 19:53 PFSH NPU PFSH: Medical History Psychiatric care Social History Smoking and tobacco/nicotine status: current every day tobacco/nicotine user Mental Status Exam MSE Comments: This is an obese -[place] female in hospital scrubs with limited grooming and nearly no eye contact. No abnormal movements, except for significant psychomotor retardation. Mostly uncooperative with exam in moderate distress. Speech was decreased rate and volume. Mood described as depressed and tired; affect subdued and congruent. Thought process, linear. Thought content: patient endorsed suicidal but denied homicidal thoughts/ideation, there were no delusions reported or but some guardedness and paranoia noted, she denied current auditory or visual hallucinations but does acknowledge she has experienced that in the past. Attention and concentration appeared intact, and memory was seeming reliable, but none were formally tested. She is alert and oriented times person and place. Insight and judgment are impaired. Impulse control is impaired. Vitals/I&O/Wt Last Vital Signs Temp 97.4 F L 06/11/24 12:00 Pulse 105 H 06/11/24 12:00 Resp 17 06/11/24 12:00 BP 128/81 06/11/24 12:00 Pulse Ox 99 06/11/24 12:00 O2 Del Method Room Air 06/11/24 12:00 06/11/24 06/11/24 06/11/24 06:59 14:59 22:59 Intake Total 840 / 840 Balance 840 / 840 Weight last 48 hrs Weight 95.254 kg Data NPU 06/10/24 20:20 06/10/24 20:20 A&P Assessment and plan (1) Alcohol dependence: (2) Major depression: Qualifiers: Major depression recurrence: recurrent Active/Remission status: currently active Major depression episode severity: severe Psychotic features: without psychotic features Qualified Code(s): F33.2 - Major depressive disorder, recurrent severe without psychotic features (3) Suicidal ideation: (4) Methamphetamine use disorder, severe: (5) Cannabis use disorder: (6) Alcohol use disorder: (7) Alcohol withdrawal: Plan This is a 34-year-old white female with a history of mental health and addiction issues with past inpatient but limited outpatient services who presents on a 96-hour hold little over a month after her last admission. The patient reports that she stopped taking her medication because she ran out. She continues to endorse that she has had some subs abuse issues and presents with positive benzodiazepines, cannabis, and alcohol of 287 but was not positive for amphetamines this visit unlike her visit a month ago. She is still patient is experiencing homelessness and lacks a stable source of income. The patient's psychiatric conditions, including psychosis and depression, may be exacerbated by these socio-economic conditions. 1.? Restart medication. 2.? Continue every 15 minute checks for safety. 3.? Encourage individual, group and milieu therapies. 4. Encourage sober living treatment after discharge at the highest level care to which she is willing to commit. 5. Get collateral information. 6. Evaluate for safety against the backdrop of 96-hour hold. Involuntary Hold Information 96 Hour Hold: 96 Hour Involuntary Admission: Yes 96 Hour Hold Ending Date: 06/17/24 96 Hour Hold Ending Time: 20:08 Other Hold: Hold End Date: 06/18/24 Attestations NPU Medical Necessity Statement*: Inpatient hospitalization is medically necessary and the clinically appropriate intervention at this time. Will monitor/initiate medications and make changes as indicated. She will be in the hospital for over 2 midnights. Likely length of stay 3-5 days. Coding Level of Care Code Acute Code for [facility] Fwd Diagnoses Alcohol dependence with uncomplicated withdrawal F10.20 Severe episode of recurrent major depressive disorder, without psychotic features F33.2 Major depression recurrence: recurrent Active/Remission status: currently active Major depression episode severity: severe Psychotic features: without psychotic features Suicidal ideation R45.851 Methamphetamine use disorder, severe F15.20 Cannabis use disorder F12.90 Alcohol use disorder F10.90 Alcohol withdrawal F10.939
[2024-06-11 15:54] VITALS: BP 95/57; PULSE 76; RESP 13; TEMP 37; O2SAT 97
[2024-06-11] MEDS: hyDROXYzine 25 mg Capsule 50 MG PO (17:14)
[2024-06-11 19:24] VITALS: BP 110/63; PULSE 73; RESP 16; TEMP 36.7; O2SAT 98
[2024-06-11] MEDS: acetaminophen 325 mg Tablet 650 MG PO (20:34)
[2024-06-11] MEDS: quetiapine 100 mg Tablet 150 MG PO (20:34)
[2024-06-11] MEDS: trazodone 50 mg Tablet PO (20:35)
[2024-06-11] MEDS: LORazepam 2 mg Tablet PO (20:35)
[2024-06-12] VITALS: BP 102/55; PULSE 78; RESP 16; TEMP 37; O2SAT 98
[2024-06-12 04:00] VITALS: BP 116/78; PULSE 88; RESP 16; TEMP 36.9; O2SAT 99
[2024-06-12 08:00] VITALS: BP 115/69; PULSE 74; RESP 18; TEMP 36.9; O2SAT 98
[2024-06-12] MEDS: cefdinir 300 MG CAPSULE PO ×2 (08:03→17:03)
[2024-06-12] MEDS: folic acid 1 mg Tablet PO (08:03)
[2024-06-12] MEDS: LORazepam 2 mg Tablet PO (08:03)
[2024-06-12] MEDS: multivitamin therapeutic Tablet 1 TAB PO (08:03)
[2024-06-12] MEDS: thiamine 100 mg Tablet PO (08:03)
[2024-06-12] MEDS: nicotine 4 mg lozenge MUCOUS MEM (08:03)
--- NOTE | 2024-06-12 08:49 | PC.NURSE ---
PRN MED PT GIVEN 2MG ATIVAN PER CIWA PROTOCOL SCARING 14, WILL CONTINUE TO MONITOR DETOX.
[2024-06-12 12:00] VITALS: BP 134/96; PULSE 116; RESP 18; TEMP 37; O2SAT 98
[2024-06-12] MEDS: OLANZapine 5 mg ODT PO ×2 (12:02→17:43)
--- NOTE | 2024-06-12 14:53 | W.PM.NPUPNS ---
Subjective NPU Subjective: Patient presented today reporting that she is doing okay. She reported that she did not realize she had refills if she had as we discussed that she should not run out of medication because when she is discharged we normally give a month with 1 refill as we understand difficulty getting into [facility]. She reports if that is the case then she was confused and just wants to restart her medication. She was less isolative today per staff report and direct observation and was more likely to respond to a question in its entirety as she was at admission. Staff report less irritability which with observed during direct conversation. She was asked questions about the 96-hour hold suggestive of her wanting to leave sooner rather than later. She identified that she has contacted [facility] and is trying to get department soon as possible right now feels secure in the tent that she lives in a month make sure we were not hold her just because she did not have an actual home. Mental Status Exam MSE Comments: This is an obese -[place] female in hospital scrubs with limited grooming and nearly no eye contact. No abnormal movements, except for significant psychomotor retardation. Slightly more cooperative with exam in moderate distress. Speech was decreased rate and volume. Mood described as depressed and tired; affect subdued and congruent. Thought process, linear. Thought content: patient endorsed suicidal but denied homicidal thoughts/ideation, there were no delusions reported or but some guardedness and paranoia noted, she denied current auditory or visual hallucinations but does acknowledge she has experienced that in the past. Attention and concentration appeared intact, and memory was seeming reliable, but none were formally tested. She is alert and oriented times person and place. Insight and judgment are impaired. Impulse control is impaired. Vitals/I&O/Wt Last Vital Signs Temp 98.6 F 06/12/24 12:00 Pulse 116 H 06/12/24 12:00 Resp 18 06/12/24 12:00 BP 134/96 06/12/24 12:00 Pulse Ox 98 06/12/24 12:00 O2 Del Method Room Air 06/12/24 04:00 06/11/24 06/12/24 06/12/24 22:59 06:59 14:59 Intake Total 120 / 960 Balance 120 / 960 Weight last 48 hrs Weight 95.254 kg Data NPU 06/10/24 20:20 06/10/24 20:20 Micro: Microbiology 06/10/24 20:18 Urine Culture - Preliminary Urine,Clean Catch Microbiology 06/10/24 20:18 Urine,Clean Catch Urine Culture - Preliminary A&P Assessment and plan (1) Alcohol dependence: (2) Major depression: Qualifiers: Major depression recurrence: recurrent Active/Remission status: currently active Major depression episode severity: severe Psychotic features: without psychotic features Qualified Code(s): F33.2 - Major depressive disorder, recurrent severe without psychotic features (3) Suicidal ideation: (4) Methamphetamine use disorder, severe: (5) Cannabis use disorder: (6) Alcohol use disorder: (7) Alcohol withdrawal: Plan This is a 34-year-old -[place] female with a history of mental health and addiction issues with past inpatient but limited outpatient services who presents on a 96-hour hold little over a month after her last admission. The patient reports that she stopped taking her medication because she ran out. She continues to endorse that she has had some subs abuse issues and presents with positive benzodiazepines, cannabis, and alcohol of 287 but was not positive for amphetamines this visit unlike her visit a month ago. She is still patient is experiencing homelessness and lacks a stable source of income. The patient's psychiatric conditions, including psychosis and depression, may be exacerbated by these socio-economic conditions. 1.? Restart medication. 2.? Continue every 15 minute checks for safety. 3.? Encourage individual, group and milieu therapies. 4. Encourage sober living treatment after discharge at the highest level care to which she is willing to commit. 5. Get collateral information. 6. Evaluate for safety against the backdrop of 96-hour hold. Involuntary Hold Information 96 Hour Hold: 96 Hour Involuntary Admission: Yes 96 Hour Hold Ending Date: 06/17/24 96 Hour Hold Ending Time: 20:08 Other Hold: Hold End Date: 06/18/24 Attestations NPU Medical Necessity Statement*: Inpatient hospitalization is medically necessary and the clinically appropriate intervention at this time. Will monitor/initiate medications and make changes as indicated. Likely length of stay 2-4 days. Coding Level of Care Code Acute Code for [facility] Fwd Diagnoses Alcohol dependence with uncomplicated withdrawal F10.20 Severe episode of recurrent major depressive disorder, without psychotic features F33.2 Major depression recurrence: recurrent Active/Remission status: currently active Major depression episode severity: severe Psychotic features: without psychotic features Suicidal ideation R45.851 Methamphetamine use disorder, severe F15.20 Cannabis use disorder F12.90 Alcohol use disorder F10.90 Alcohol withdrawal F10.939
[2024-06-12] MEDS: haloperidol 5 mg Tablet PO (15:00)
[2024-06-12] MEDS: ondansetron 4 MG Tablet PO (15:00)
[2024-06-12] MEDS: acetaminophen 325 mg Tablet 650 MG PO (15:01)
[2024-06-12 15:43] VITALS: BP 134/83; PULSE 82; RESP 18; TEMP 36.6; O2SAT 98
[2024-06-12 19:56] VITALS: BP 106/59; PULSE 98; RESP 18; O2SAT 98
[2024-06-12] MEDS: trazodone 50 mg Tablet PO (21:27)
[2024-06-12] MEDS: hyDROXYzine 25 mg Capsule 50 MG PO (21:27)
[2024-06-12] MEDS: quetiapine 100 mg Tablet 150 MG PO (21:27)
[2024-06-13] VITALS: RESP 16
[2024-06-13 04:00] VITALS: BP 96/60; PULSE 87; RESP 16; TEMP 36.5; O2SAT 98
[2024-06-13 07:55] VITALS: BP 125/67; PULSE 77; RESP 15; TEMP 36.6; O2SAT 98
[2024-06-13] MEDS: folic acid 1 mg Tablet PO (08:00)
[2024-06-13] MEDS: thiamine 100 mg Tablet PO (08:00)
[2024-06-13] MEDS: multivitamin therapeutic Tablet 1 TAB PO (08:00)
[2024-06-13] MEDS: cefdinir 300 MG CAPSULE PO ×2 (08:00→17:53)
[2024-06-13] MEDS: hyDROXYzine 25 mg Capsule 50 MG PO ×2 (10:31→16:42)
[2024-06-13] MEDS: nicotine 2 mg Gum BUCCAL ×2 (11:40→16:42)
[2024-06-13 12:00] VITALS: BP 119/78; PULSE 89; RESP 16; TEMP 36.6; O2SAT 97
[2024-06-13] MEDS: OLANZapine 5 mg ODT PO ×2 (12:29→20:29)
--- NOTE | 2024-06-13 14:26 | W.PM.NPUPNS ---
Subjective NPU Subjective: Patient presented today reporting that she is feeling better in general today. She continues to have some angst about whether or not she would be At longer because she does not have traditional housing right now. She is also concerned about not being discharged when her significant other is discharged. She denied any side effects to her medications being restarted. Mental Status Exam MSE Comments: This is an obese -S[place]i female in hospital scrubs with limited grooming and nearly no eye contact. No abnormal movements, except for significant psychomotor retardation. Slightly more cooperative with exam in mild distress. Speech was decreased rate and volume. Mood described as a little better; affect subdued and congruent. Thought process, linear. Thought content: patient endorsed suicidal but denied homicidal thoughts/ideation, there were no delusions reported or but some guardedness and paranoia noted, she denied current auditory or visual hallucinations but does acknowledge she has experienced that in the past. Attention and concentration appeared intact, and memory was seeming reliable, but none were formally tested. She is alert and oriented times person and place. Insight and judgment are impaired. Impulse control is impaired. Vitals/I&O/Wt Last Vital Signs Temp 97.9 F 06/13/24 12:00 Pulse 89 06/13/24 12:00 Resp 16 06/13/24 12:00 BP 119/78 06/13/24 12:00 Pulse Ox 97 06/13/24 12:00 O2 Del Method Room Air 06/13/24 12:00 06/12/24 06/13/24 06/13/24 22:59 06:59 14:59 Intake Total 360 / 360 Balance 360 / 360 Data NPU 06/10/24 20:20 06/10/24 20:20 Micro: Microbiology 06/10/24 20:18 Urine Culture - Final Urine,Clean Catch Microbiology 06/10/24 20:18 Urine,Clean Catch Urine Culture - Final A&P Assessment and plan (1) Alcohol dependence: (2) Major depression: Qualifiers: Major depression recurrence: recurrent Active/Remission status: currently active Major depression episode severity: severe Psychotic features: without psychotic features Qualified Code(s): F33.2 - Major depressive disorder, recurrent severe without psychotic features (3) Suicidal ideation: (4) Methamphetamine use disorder, severe: (5) Cannabis use disorder: (6) Alcohol use disorder: (7) Alcohol withdrawal: Plan This is a 34-year-old -[place] female with a history of mental health and addiction issues with past inpatient but limited outpatient services who presents on a 96-hour hold little over a month after her last admission. The patient reports that she stopped taking her medication because she ran out. She continues to endorse that she has had some subs abuse issues and presents with positive benzodiazepines, cannabis, and alcohol of 287 but was not positive for amphetamines this visit unlike her visit a month ago. She is still patient is experiencing homelessness and lacks a stable source of income. The patient's psychiatric conditions, including psychosis and depression, may be exacerbated by these socio-economic conditions. 1.? Restarted medication. 2.? Continue every 15 minute checks for safety. 3.? Encourage individual, group and milieu therapies. 4. Encourage sober living treatment after discharge at the highest level care to which she is willing to commit. 5. Get collateral information. 6. Evaluate for safety against the backdrop of 96-hour hold. Involuntary Hold Information 96 Hour Hold: 96 Hour Involuntary Admission: Yes 96 Hour Hold Ending Date: 06/17/24 96 Hour Hold Ending Time: 20:08 Other Hold: Hold End Date: 06/18/24 Attestations NPU Medical Necessity Statement*: Inpatient hospitalization is medically necessary and the clinically appropriate intervention at this time. Will monitor/initiate medications and make changes as indicated. Likely length of stay 1-4 days. Coding Level of Care Code Acute Code for [facility] Fwd Diagnoses Alcohol dependence with uncomplicated withdrawal F10.20 Severe episode of recurrent major depressive disorder, without psychotic features F33.2 Major depression recurrence: recurrent Active/Remission status: currently active Major depression episode severity: severe Psychotic features: without psychotic features Suicidal ideation R45.851 Methamphetamine use disorder, severe F15.20 Cannabis use disorder F12.90 Alcohol use disorder F10.90 Alcohol withdrawal F10.939
[2024-06-13] MEDS: ibuprofen 600 mg Tablet PO (15:23)
[2024-06-13] MEDS: nicotine 4 mg lozenge MUCOUS MEM ×3 (15:23→20:33)
[2024-06-13 16:00] VITALS: BP 123/81; PULSE 95; RESP 16; TEMP 36.6; O2SAT 97
[2024-06-13 20:00] VITALS: BP 122/78; PULSE 94; RESP 16; TEMP 36.9; O2SAT 99
[2024-06-13] MEDS: quetiapine 100 mg Tablet 150 MG PO (20:29)
[2024-06-13] MEDS: trazodone 50 mg Tablet PO (20:29)
[2024-06-14] VITALS: BP 99/65; PULSE 81; RESP 16; TEMP 36.6; O2SAT 97
[2024-06-14 04:00] VITALS: BP 113/74; PULSE 69; RESP 15; TEMP 36.8; O2SAT 98
[2024-06-14 07:55] VITALS: BP 116/73; PULSE 83; RESP 15; TEMP 36.6; O2SAT 98
[2024-06-14] MEDS: hyDROXYzine 25 mg Capsule 50 MG PO ×2 (08:21→16:23)
[2024-06-14] MEDS: multivitamin therapeutic Tablet 1 TAB PO (08:22)
[2024-06-14] MEDS: folic acid 1 mg Tablet PO (08:22)
[2024-06-14] MEDS: thiamine 100 mg Tablet PO (08:22)
[2024-06-14] MEDS: cefdinir 300 MG CAPSULE PO ×2 (08:22→17:17)
[2024-06-14] MEDS: nicotine 4 mg lozenge MUCOUS MEM ×3 (09:58→20:39)
[2024-06-14] MEDS: OLANZapine 5 mg ODT PO ×3 (09:59→20:38)
[2024-06-14 12:00] VITALS: BP 120/87; PULSE 88; RESP 14; TEMP 36.3; O2SAT 99
--- NOTE | 2024-06-14 15:31 | P.NPUPN_ITS ---
Subjective NPU 2 Subjective: Patient presented today reporting that things are going fine as far as she is concerned. She reported she was wondering about going to rehab but is now decided she is not going. She made some comment about the temperature right now being tolerable. We discussed the importance of her following through with her outpatient treatment after discharge and being aware that she has enough medication to hopefully get to her appointment at [facility] but if not she can use the resources of calling the unit or the crisis stabilization center. She denied any side effects of medication. Mental Status Exam 2 MSE Comments: This is an obese -Faro[place] female in hospital scrubs with limited grooming and nearly no eye contact. No abnormal movements, except for significant psychomotor retardation. Slightly more cooperative with exam in mild distress. Speech was more normal rate and volume. Mood described as a little better; affect congruent and less subdued. Thought process, linear. Thought content: patient denied suicidal or homicidal thoughts/ideation, there were no delusions reported or noted, she denied current auditory or visual hallucinations but does acknowledge she has experienced that in the past. Attention and concentration appeared intact, and memory was seeming reliable, but none were formally tested. She is alert and oriented times person and place. Insight and judgment are impaired. Impulse control is impaired. Vitals/I&O/Wt Last Vital Signs Temp 97.4 F L 06/14/24 12:00 Pulse 88 06/14/24 12:00 Resp 14 06/14/24 12:00 BP 120/87 06/14/24 12:00 Pulse Ox 99 06/14/24 12:00 O2 Del Method Room Air 06/14/24 12:00 06/14/24 06/14/24 06/14/24 06:59 14:59 22:59 Intake Total 480 / 480 Balance 480 / 480 Data NPU 06/10/24 20:20 06/10/24 20:20 A&P Assessment and plan (1) Alcohol dependence: (2) Major depression: Qualifiers: Major depression recurrence: recurrent Active/Remission status: c urrently active Major depression episode severity: severe Psychotic features: without psychotic features Qualified Code(s): F33.2 - Major depressive disorder, recurrent severe without psychotic features (3) Suicidal ideation: (4) Methamphetamine use disorder, severe: (5) Cannabis use disorder: (6) Alcohol use disorder: (7) Alcohol withdrawal: Plan This is a 34-year-old -Faro[place] female with a history of mental health and addiction issues with past inpatient but limited outpatient services who presents on a 96-hour hold little over a month after her last admission. The patient reports that she stopped taking her medication because she ran out. She continues to endorse that she has had some subs abuse issues and presents with positive benzodiazepines, cannabis, and alcohol of 287 but was not positive for amphetamines this visit unlike her visit a month ago. She is still patient is experiencing homelessness and lacks a stable source of income. The patient's psychiatric conditions, including psychosis and depression, may be exacerbated by these socio-economic conditions. 1.? Restarted medication. 2.? Continue every 15 minute checks for safety. 3.? Encourage individual, group and milieu therapies. 4. Encourage sober living treatment after discharge at the highest level care to which she is willing to commit. She is refusing any plans for intensive addiction treatment and is hopeful that she is discharged tomorrow. 5. Get collateral information. 6. Evaluate for safety against the backdrop of 96-hour hold. Will consider discharge tomorrow versus Monday. Involuntary Hold Information 2 96 Hour Hold: 96 Hour Involuntary Admission: Yes 96 Hour Hold Ending Date: 06/17/24 96 Hour Hold Ending Time: 20:08 Other Hold: Hold End Date: 06/18/24 Attestations NPU 2 Medical Necessity Statement*: Inpatient hospitalization is medically necessary and the clinically appropriate intervention at this time. Will monitor/initiate medications and make changes as indicated. Likely length of stay 1-3 days. Coding Level of Care Code Acute Code for [facility] Diagnoses Alcohol dependence with uncomplicated withdrawal F10.20 Severe episode of recurrent major depressive disorder, without psychotic features F33.2 Major depression recurrence: recurrent Active/Remission status: currently active Major depression episode severity: severe Psychotic features: without psychotic features Suicidal ideation R45.851 Methamphetamine use disorder, severe F15.20 Cannabis use disorder F12.90 Alcohol use disorder F10.90 Alcohol withdrawal F10.939
[2024-06-14 16:00] VITALS: BP 115/80; PULSE 91; RESP 15; TEMP 36.7; O2SAT 95
[2024-06-14 20:00] VITALS: BP 116/79; PULSE 96; RESP 15; TEMP 36.6; O2SAT 100
[2024-06-14] MEDS: quetiapine 100 mg Tablet 150 MG PO (20:39)
[2024-06-14] MEDS: trazodone 50 mg Tablet PO (20:39)
[2024-06-15 06:00] VITALS: BP 113/66; PULSE 80; RESP 16; TEMP 36.6; O2SAT 99
[2024-06-15] MEDS: folic acid 1 mg Tablet PO (08:32)
[2024-06-15] MEDS: thiamine 100 mg Tablet PO (08:32)
[2024-06-15] MEDS: nicotine 4 mg lozenge MUCOUS MEM ×4 (08:32→20:22)
[2024-06-15] MEDS: multivitamin therapeutic Tablet 1 TAB PO (08:32)
[2024-06-15] MEDS: cefdinir 300 MG CAPSULE PO ×2 (08:32→17:14)
[2024-06-15] MEDS: hyDROXYzine 25 mg Capsule 50 MG PO (12:01)
[2024-06-15 14:00] VITALS: BP 163/95; PULSE 93; RESP 16; TEMP 36.7; O2SAT 97
[2024-06-15] MEDS: OLANZapine 5 mg ODT PO ×2 (14:22→20:22)
[2024-06-15] MEDS: haloperidol 5 mg Tablet PO (18:41)
--- NOTE | 2024-06-15 19:02 | P.NPUPN_ITS ---
Subjective NPU 2 Subjective: Patient presented today reporting that she is feeling optimistic about moving forward. We had a lengthy discussion about discharge and she continues to report she has no interest in any accelerated services only and following up at [facility] with her medications that we prescribed here. We discussed openness to discharge tomorrow if she is still desiring to go and she denied any side effects or medications or any other issues. Mental Status Exam 2 MSE Comments: This is an obese -Martiniquais female in hospital scrubs with appropriate grooming and eye contact. No abnormal movements, except for resolving psychomotor retardation. More cooperative with exam in mild distress. Speech was more normal rate and volume. Mood described as better; affect congruent and less subdued. Thought process, linear. Thought content: patient denied suicidal or homicidal thoughts/ideation, there were no delusions reported or noted, she denied current auditory or visual hallucinations but does acknowledge she has experienced that in the past. Attention and concentration appeared intact, and memory was seeming reliable, but none were formally tested. She is alert and oriented times person and place. Insight and judgment are impaired. Impulse control is impaired. Vitals/I&O/Wt Last Vital Signs Temp 98.0 F 06/15/24 14:00 Pulse 93 06/15/24 14:00 Resp 16 06/15/24 14:00 BP 163/95 06/15/24 14:00 Pulse Ox 97 06/15/24 14:00 O2 Del Method Room Air 06/15/24 14:00 06/15/24 06/15/24 06/15/24 06:59 14:59 22:59 Intake Total 240 / 240 Balance 240 / 240 Data NPU 06/10/24 20:20 06/10/24 20:20 A&P Assessment and plan (1) Alcohol dependence: (2) Major depression: Qualifiers: Major depression recurrence: recurrent Active/Remission status: c urrently active Major depression episode severity: severe Psychotic features: without psychotic features Qualified Code(s): F33.2 - Major depressive disorder, recurrent severe without psychotic features (3) Suicidal ideation: (4) Methamphetamine use disorder, severe: (5) Cannabis use disorder: (6) Alcohol use disorder: (7) Alcohol withdrawal: Plan This is a 34-year-old -Martiniquais female with a history of mental health and addiction issues with past inpatient but limited outpatient services who presents on a 96-hour hold little over a month after her last admission. The patient reports that she stopped taking her medication because she ran out. She continues to endorse that she has had some subs abuse issues and presents with positive benzodiazepines, cannabis, and alcohol of 287 but was not positive for amphetamines this visit unlike her visit a month ago. She is still patient is experiencing homelessness and lacks a stable source of income. The patient's psychiatric conditions, including psychosis and depression, may be exacerbated by these socio-economic conditions. 1.? Restarted medication. 2.? Continue every 15 minute checks for safety. 3.? Encourage individual, group and milieu therapies. 4. Encourage sober living treatment after discharge at the highest level care to which she is willing to commit. She is refusing any plans for intensive addiction treatment and is hopeful that she is discharged tomorrow. 5. Get collateral information. 6. Evaluate for safety against the backdrop of 96-hour hold. Will consider discharge tomorrow versus Monday. Involuntary Hold Information 2 96 Hour Hold: 96 Hour Involuntary Admission: Yes 96 Hour Hold Ending Date: 06/17/24 96 Hour Hold Ending Time: 20:08 Other Hold: Hold End Date: 06/18/24 Attestations NPU 2 Medical Necessity Statement*: Inpatient hospitalization is medically necessary and the clinically appropriate intervention at this time. Will monitor/initiate medications and make changes as indicated. Likely length of stay 1-2 days. Coding Level of Care Code Acute Code for [facility] Fwd Diagnoses Alcohol dependence with uncomplicated withdrawal F10.20 Severe episode of recurrent major depressive disorder, without psychotic features F33.2 Major depression recurrence: recurrent Active/Remission status: currently active Major depression episode severity: severe Psychotic features: without psychotic features Suicidal ideation R45.851 Methamphetamine use disorder, severe F15.20 Cannabis use disorder F12.90 Alcohol use disorder F10.90 Alcohol withdrawal F10.939
[2024-06-15] MEDS: trazodone 50 mg Tablet PO (20:22)
[2024-06-15] MEDS: ibuprofen 600 mg Tablet PO (20:22)
[2024-06-15] MEDS: quetiapine 100 mg Tablet 150 MG PO (20:22)
[2024-06-15 22:00] VITALS: BP 180/98; PULSE 97; RESP 16; TEMP 36.6; O2SAT 100
[2024-06-16 06:00] VITALS: BP 131/90; PULSE 87; RESP 16; TEMP 36.5; O2SAT 98
[2024-06-16] MEDS: hyDROXYzine 25 mg Capsule 50 MG PO (09:01)
[2024-06-16] MEDS: cefdinir 300 MG CAPSULE PO (09:01)
[2024-06-16] MEDS: folic acid 1 mg Tablet PO (09:01)
[2024-06-16] MEDS: thiamine 100 mg Tablet PO (09:01)
[2024-06-16] MEDS: multivitamin therapeutic Tablet 1 TAB PO (09:01)
[2024-06-16] MEDS: OLANZapine 5 mg ODT PO (12:10)
[2024-06-16] MEDS: nicotine 4 mg lozenge MUCOUS MEM (12:11)
--- NOTE | 2024-06-16 12:12 | P.NPUDS_ITS ---
Diagnoses at Discharge Discharge Diagnosis (1) Alcohol dependence: Status: Acute Permanent problem details: The patient has completed [facility] detoxification. However, achieving sobriety is ongoing. (2) Major depression: Status: Acute Qualifiers: Major depression recurrence: recurrent Active/Remission status: currently active Major depression episode severity: severe Psychotic features: without psychotic features Qualified Code(s): F33.2 - Major depressive disorder, recurrent severe without psychotic features Permanent problem details: The patient was despondent, hopeless and thinking of killing herself. The symptoms have resolved. (3) Suicidal ideation: Status: Resolved (4) Methamphetamine use disorder, severe: Status: Acute (5) Cannabis use disorder: Status: Acute (6) Alcohol use disorder: Status: Acute (7) Alcohol withdrawal: Status: Resolved Reason for Visit Reason for Visit: stated HI SI Brief History: History of Present Illness Susan Hernandez is a 34 year old female who presented to the emergency department with the following report: Chief Complaint: Psychiatric Symptoms Stated Complaint: stated HI SI Time Seen by Provider: 06/10/24 19:37 History of Present Illness: 34-year-old female with history of depre ssion who presents emergency room with suicidal ideation. She says [place] and family not wanting to be around her have made her depression worse. She also had run out of her medications a week or 2 ago and this is worsened things as well. She says she has lots of different plans to kill herself. She was admitted to the neuropsychiatric unit for definitive treatment of those issues. She is known to [facility] through some limited outpatient and some inpatient services with her last hospitalization being in April of this year. An excerpt of her discharge summary from April is included below for context and the fact that there have been no substantive changes. She presents today reporting that she is really struggling and out of it today secondary to drug abuse and withdrawal. She reports that things have not changed much since she was here last time and she continues to struggle with being homeless and then ran out of her medication because she did not follow through with follow-up as we had discussed. She presented reporting that things were essentially the same as they were the last time she came an excerpt of that discharge summary is included below. We discussed restarting her medication and then trying to assist her and figure out something to do differently so that she does not repeat the same cycle. Per her 05/06/2024 [facility] inpatient psychiatric discharge summary: Discharge Diagnosis (1) Alcohol dependence: Status: Acute Permanent problem details: The patient has completed [facility] detoxification. However, achieving sobriety is ongoing. (2) Major depression: Status: Acute Qualifiers: Active/Remission status: currently active Major depression episode severity: severe Major depression recurrence: recurrent Psychotic features: without psychotic features Qualified Code(s): F33.2 - Major depressive disorder, recurrent severe without psychotic features Permanent problem details: The patient was despondent, hopeless and thinking of killing herself. The symptoms have resolved. (3) Suicidal ideation: Status: Acute (4) Methamphetamine use disorder, severe : Status: Acute (5) Cannabis use disorder: Status: Acute (6) Alcohol use disorder: Status: Acute (7) Alcohol withdrawal: Status: Acute Reason for Visit Reason for Visit: SI/ HI Brief History: History of Present Illness Susan Hernandez is a 34 year old female who presented to the emergency department with the following report: Chief Complaint: Psychiatric Symptoms Stated Complaint: SI/ HI Time Seen by Provider: 04/29/24 02:14 History of Present Illness: 34-year-old female with a history of psy chiatric disease. She presents with suicidal ideation. Her plan was to jump off a bridge this morning. She is somewhat intoxicated with alcohol but answering all questions appropriately. She denies other medical problems or illnesses. She was admitted to the neuropsychiatric unit for definitive treatment of those issues. She is known to [facility] psychiatric services through 2 previous inpatient stays over 4 years ago and some recent limited outpatient services. An excerpt of her November 2019 inpatient evaluation is included below for historical context. She presents today reporting: Chief complaint The patient is currently homeless, has been off medication, and has been using drugs. History of the present complaint The patient reported that they have been taking Sopro and Seroquel for their mental health, but it was noted that they had not been taking these medications prior to their current hospital visit. The patient has a history of hospitalization in psychiatric facilities, with the most recent instance being approximately four years ago. The exact number of hospitalizations and the number of different hospitals visited was not specified. The patient has a history of substance use, including alcohol and unspecified drugs. They admitted to having been to rehab when they were 15 years old and have a history of driving under the influence. However, they denied any other charges related to substance use. The patient suggested that their psychosis may be related to their methamphetamine use, but this was not confirmed. The patient reported that they are currently homeless and do not have a source of income. They mentioned having performed a ceremony, but it was unclear what this referred to. The patient did not specify any current symptoms, problems, or concerns related to their mental health, nor did they mention any triggers, risk factors, or functional and emotional impairments. There was no mention of any significant events, traumas, thoughts, beliefs, feelings, aspirations, fears, dreams, or nightmares. The patient did not discuss any previous treatments, interventions, or therapies beyond their current medications. Mental health history The patient has a history of mental health issues, including psychosis and depression. The patient has been hospitalized multiple times in psychiatric hospitals, with the last known admission approximately four years ago. The patient has been taking Sopro and Seroquel, but had stopped taking them prior to the current consultation. The patient has also been to rehab at the age of 15. Social history The patient has a history of substance abuse, including alcohol, cannabis, cocaine, methamphetamine, and opiates. The patient has been charged with DUI/DWI in the past. The patient is currently homeless and does not have a steady source of income. The patient has not been working recently. Per her 11/29/2019 [facility] inpatient psychiatric evaluation: History of Present Illness Chief complaint: I was thinking about killing myself History of present illness:Susan Hernandez is a 29 year old female who finds herself with overwhelming psychosocial problems that seem to have no solution. She has been drinking over 1/5 of vodka daily for over a month. She was feeling hopeless and overwhelmed. She has poor hedonic capacity. She engages in no enjoyable activities. She is cut off from psychosocial support. She is she is sad and blue on a daily basis. Killing herself seem to be a reasonable option. She denies the presence of auditory or visual hallucinations. She denies a history of manic symptoms. She is drinking over 1/5 of liquor per day for the past month. She wakes up at night with the shakes and tremors. She denies blackouts. She admits to craving. She has never had seizures or delirium tremens as a result of stopping her alcohol. She has had problems with alcohol and substance abuse in the past. She went through an inpatient rehabilitation program at age 15. She does not feel that rehabilitation is necessary at this time if she can just develop a reasonable plan to help with her stressors. These are listed below under social history. She has 1 prior DWI 4 years ago. Mental health history: She has had at least 5 prior admissions. Her last was 5 months ago. It was at [facility] in [place]. It was a similar situation. She was off of her medications and again started drinking. She takes Prozac and trazodone and something for anxiety and those usually help her significantly. However she did not have the money to continue her medications though she did have the money to start drinking again. She has had suicidal thoughts before. She has considered walking in front of cars. She has overdosed on at least one occasion though apparently and not with lethality. Social history: The patient grew up in [place] which is up near [place]. She dropped out of school in ninth grade because it just was not for me. 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 She is largely estranged from most of her family. She does still have contact with her father who lives in [place]. However she was vague in stating that he could not help at this time. A month ago, she came to the conclusion that continuing to live in [place] was going to and badly and that she needed to leave. She somehow contacted a man from [place] who invited her to live with him. She is now been here for a month. She is sharing an apartment with 2 other men. Things have turned badly in that situation. He apparently felt that this was going to be a romantic relationship of some sort. She was not of that understanding. She is paying rent for the apartment. He tried to kick her out but police informed him that since she paid rent, she does have that access to that apartment through the end of the month. She has no good explanation as to why someone from [place] would pick [place] as her destination. She says that she just sort of met him online. She was just looking for some place to go. When she loses her access to these apartment, she would be homeless. Legal history: She has no felony arrests. She has an arrest in September 2019 for possession of drug paraphernalia. She has 1 prior DWI and leaving the scene of an accident. Past medical history: Allergies: No known drug allergies Medications: She is on no medications at this time. Previously she was taking Prozac, trazodone, and something for anxiety Surgeries: She had a unilateral oophorectomy and has had surgery for a broken leg. She is 7 para 5. She would like to be on control. Hospital Course Hospital Course She slowly acclimated to the individual, group and milieu therapies provided. She was initially quite disgruntled and irritable and discussed issues with housing, running out of her medication and being nonadherent to treatment. We restarted her medication including Seroquel thiamine and trazodone and she was also reconnected to her Vivitrol injection as well. She had slow and steady improvement with those medications. She worked with the social work team to obtain appropriate follow-up. We discussed the importance of her understanding crisis services including crisis stabilization center for when she finds her self running out of medication and needs connected with resources and things of that nature. She had significant improvement during the stay and was able to contract for safety outside the hospital prior to discharge. During the hospit alization, the patient had routine laboratory studies which were within normal limits except for a few outliers. Additionally, there was a general medical evaluation which was also within normal limits and revealed no new acute processes. She did however have a UTI that was treated with cefdinir during her stay. At the time of discharge, she denied psychosis or lethality. Mood and anxiety were well managed. The patient endorsed a plan to avoid all drugs of abuse and follow up with the aftercare recommendations of the treatment team. The patient was evaluated and deemed to be absent credible lethality and had achieved the maximum benefit from an inpatient hospitalization, and so was discharged. Involuntary Hold Information 96 Hour Hold: 96 Hour Involuntary Admission: Yes 96 Hour Hold Ending Date: 06/17/24 96 Hour Hold Ending Time: 20:08 Other Hold: Hold End Date: 06/18/24 Mental Status Exam MSE Comments: This is an obese -Slov[place] female in hospital scrubs with appropriate grooming and eye contact. No abnormal movements, except for resolving psychomotor retardation. More cooperative with exam in mild distress. Speech was more normal rate and volume. Mood described as better; affect congruent and less subdued. Thought process, linear. Thought content: patient denied suicidal or homicidal thoughts/ideation, there were no delusions reported or noted, she denied current auditory or visual hallucinations but does acknowledge she has experienced that in the past. Attention and concentration appeared intact, and memory was seeming reliable, but none were formally tested. She is alert and oriented times person and place. Insight and judgment are impaired. Impulse control is impaired. Discharge Data Studies Completed and Pending: Laboratory Results WBC 11.08 10^3/uL (3. 29-11.43) 06/10/24 20:20 RBC 4.01 10^6/uL (3.8 5-5.65) 06/10/24 20:20 Hgb 13.20 g/dL (11.27 -16.99) 06/10/24 20:20 Hct 39.3 % (36-47) 06/10/24 20:20 MCV 98.0 fl (85-98) 06/10/24 20:20 MCH 32.9 pg (27-33) 06/10/24 20:20 MCHC 33.6 g/dL (30-55) 06/10/24 20:20 RDW 13.1 % (12.1-15.1 ) 06/10/24 20:20 Plt Count 319 10^3/cmm (157 -399) 06/10/24 20:20 MPV 10.3 fL (7.4-10.4 ) 06/10/24 20:20 Neut % (Auto) 41.0 % 06/10/24 20:20 Lymph % (Auto) 49.6 % 06/10/24 20:20 [place] % (Auto) 4.7 % 06/10/24 20:20 Eos % (Auto) 3.4 % 06/10/24 20:20 Baso % (Auto) 1.0 % 06/10/24 20:20 Neut # (Auto) 4.54 10^3/uL (1.8 -7.7) 06/10/24 20:20 Lymph # (Auto) 5.5 10^3/uL (0.8- 4.8) H 06/10/24 20:20 [place] # (Auto) 0.5 10^3/uL (0.2- 0.9) 06/10/24 20:20 Eos # (Auto) 0.4 10^3/uL (0.0- 0.8) 06/10/24 20:20 Baso # (Auto) 0.1 10^3/uL (0.0- 0.1) 06/10/24 20:20 Nucleated RBC % (a uto) 0 % 06/10/24 20:20 Nucleated RBCs # 0.0 /100WBC 06/10/24 20:20 Sodium 144 mmol/L (136-1 45) 06/10/24 20:20 Potassium 3.2 mmol/L (3.5-5 .1) L 06/10/24 20:20 Chloride 106 mmol/L (98-10 7) 06/10/24 20:20 Carbon Dioxide 25 mmol/L (22-29) 06/10/24 20:20 Anion Gap 16.2 (5-19) 06/10/24 20:20 BUN 9 mg/dL (6-20) 06/10/24 20:20 Creatinine 0.7 mg/dL (0.5-0. 9) 06/10/24 20:20 GFR Calculation 115.2 mL/min (90- 130) 06/10/24 20:20 Glucose 100 mg/dL (65-115 ) 06/10/24 20:20 Calculated Osmolal ity 297 mOsm/kg (285- 295) H 06/10/24 20:20 Calcium 8.6 mg/dL (8.5-10 .5) 06/10/24 20:20 Total Bilirubin 0.2 mg/dL (0.15-1 .2) 06/10/24 20:20 AST 20 U/L (0-32) 06/10/24 20:20 ALT 11 U/L (0-33) 06/10/24 20:20 Alkaline Phosphata se 112 U/L (35-105) H 06/10/24 20:20 Total Protein 6.9 g/dL (6.6-8.7 ) 06/10/24 20:20 Albumin 3.9 g/dL (3.5-5.2 ) 06/10/24 20:20 Globulin 3.0 g/dL (1.3-4.6 ) 06/10/24 20:20 TSH 1.74 uIU/mL (0.27 -4.20) 06/10/24 20:20 Urine Color Yellow (Yellow) 06/10/24 20:18 Urine Appearance Cloudy (CLEAR) A 06/10/24 20:18 Urine pH 6.0 (5-7) 06/10/24 20:18 Ur Specific Gravit y 1.017 (1.005-1.0 30) 06/10/24 20:18 Urine Protein Negative (Negati ve) 06/10/24 20:18 Urine Glucose (UA) Negative (Normal ) 06/10/24 20:18 Urine Ketones Negative (Negati ve) 06/10/24 20:18 Urine Blood Negative (Negati ve) 06/10/24 20:18 Urine Nitrate Negative (Negati ve) 06/10/24 20:18 Urine Bilirubin Negative (Negati ve) 06/10/24 20:18 Urine Urobilinogen 1.0 mg/dL (Negati ve) 06/10/24 20:18 Ur Leukocyte [place] ase 2+ (Negative) A 06/10/24 20:18 Urine RBC 0-2 /hpf (0-2) 06/10/24 20:18 Urine WBC 51-100 /hpf (0-5) H 06/10/24 20:18 Ur Squamous Epith Cells 6-10 /hpf (0-5) 06/10/24 20:18 Amorphous Sediment Not Reportable 06/10/24 20:18 Urine Bacteria 2+ /hpf (NONE) H 06/10/24 20:18 Hyaline Casts 0.40 /lpf 06/10/24 20:18 Salicylates < 0.3 mg/dL (3-10 ) L 06/10/24 20:20 Urine Opiates Scre en Negative ng/mL (N egative) 06/10/24 20:18 Acetaminophen < 5.0 ug/mL (10-3 0) L 06/10/24 20:20 Ur Barbiturates Sc reen Negative ng/mL (N egative) 06/10/24 20:18 Ur Phencyclidine S crn Negative ng/mL (N egative) 06/10/24 20:18 Ur Amphetamines Sc reen Negative ng/mL (N egative) 06/10/24 20:18 U Benzodiazepines Scrn Positive ng/mL (N egative) H 06/10/24 20:18 Urine Cocaine Scre en Negative ng/mL (N egative) 06/10/24 20:18 U Marijuana (THC) Screen Positive ng/mL (N egative) H 06/10/24 20:18 Ethyl Alcohol 287 mg/dL (0-10) H 06/10/24 20:20 Vitals: Last Vital Signs Temp 97.7 F 06/16/24 06:00 Pulse 87 06/16/24 06:00 Resp 16 06/16/24 06:00 BP 131/90 06/16/24 06:00 Pulse Ox 98 06/16/24 06:00 O2 Del Method Room Air 06/16/24 06:00 Discharge Plan Discharge Patient Disposition: Home Condition: Stable Prescriptions: New trazodone 50 mg Tablet 50 mg PO BEDTIME PRN (Reason: Sleep) 30 Days Qty: 30 1RF cefdinir 300 mg Capsule 300 mg PO BID 3 Days Qty: 5 0RF Continued folic acid 1 mg Tablet 1 mg PO DAILY 30 Days Qty: 30 1RF hydroxyzine pamoate 25 mg Capsule 50 mg PO Q6H PRN (Reason: Anxiety) 30 Days Qty: 90 1RF Vivitrol 380 mg Suspension,Extended Rel Recon 380 mg IM Q28D Qty: 1 1RF Rx Instructions: Next IM monthly shot due 06/09/24 thiamine mononitrate (vit B1) [Vitamin B-1 (mononitrate)] 100 mg Tablet 100 mg PO DAILY 30 Days Qty: 30 1RF Changed quetiapine [Seroquel] 100 mg tablet 150 mg PO BEDTIME 30 Days Qty: 30 1RF Discharge Orders: Discharge Order (Routine); Ordered 06/16/24 Ordered By: Martin Everett Referrals: [facility] [Other] [facility] [Other] Ciera Posadas, PMHNP [Staff Physician] - 07/09/24 9:30 am Patient Instructions: Opioid Safety Discharge Attestations NPU Time Spent in Discharge Care*: less than 30 min Specific Discharge Activities: Specific discharge activities: educating patient, discussing with case specialist/social workers/dc planners, documenting/other paperwork and evaluating patient/reviewing data Status at Discharge: Cognitive status at discharge: cognitively intact , Behavioral status at discharge: cooperative , Coding Level of Care Code Acute Code for Chg Fwd Diagnoses Alcohol dependence with uncomplicated withdrawal F10.20 Severe episode of recurrent major depressive disorder, without psychotic features F33.2 Major depression recurrence: recurrent Active/Remission status: currently active Major depression episode severity: severe Psychotic features: without psychotic features Suicidal ideation R45.851 Methamphetamine use disorder, severe F15.20 Cannabis use disorder F12.90 Alcohol use disorder F10.90 Alcohol withdrawal F10.939
[2024-06-16 12:46] VITALS: BP 131/90; PULSE 16; RESP 87; TEMP 36.5; O2SAT 98
== END 2024-06-16 13:12 | disposition home or self-care (01) | DRG 885 ==
LOC: ER 20:16 → NP 21:24
PROVIDERS: Admitting Provider Psychiatry & Neurology Psychiatry; Emergency Provider Emergency Medicine; Visit Provider Psychiatry & Neurology Psychiatry
DX: F33.2 Major depressive disorder, recurrent severe without psychotic features (principal); F10.239 Alcohol dependence with withdrawal, unspecified; F15.20 Other stimulant dependence, uncomplicated; Z59.00 Homelessness unspecified; R45.851 Suicidal ideations; Y90.8 Blood alcohol level of 240 mg/100 ml or more; Z91.128 Patient's intentional underdosing of medication regimen for other reason; F17.200 Nicotine dependence, unspecified, uncomplicated; E66.9 Obesity, unspecified; Z68.35 Body mass index [BMI] 35.0-35.9, adult
CPT/HCPCS: 36415; 80053; 80306; 80307; 81001; 84443; 85025; 87086; 93005; 97150; 97165; 99285; Q0162

== ENCOUNTER 2024-07-05 09:02 | Emergency (ER) | payer MEDICAID, SELFPAY ==
[2024-07-05 09:25] VITALS: BP 139/72; PULSE 87; RESP 17; TEMP 36.4; O2SAT 98; BMI 34.9
--- NOTE | 2024-07-05 10:04 | ED_ITS ---
HPI - Dental/Oral 2 General: Chief complaint: Dental/Oral Stated complaint: dental Time Seen by Provider: 07/05/24 10:00 Source: patient Mode of arrival: ambulatory Limitations: no limitations History of Present Illness: Patient is a 34-year-old female presents to ED today with a complaint of right lower dental pain over the past 2 days or so. She states she woke up this morning and noticed a small amount of facial swelling. She is not having any difficulty speaking, swallowing, or controlling secretions. No fevers. Patient states she does not have a dentist. She states she is homeless. MD Complaint: tooth pain Teeth map: 1. Onset (ago): day(s) Duration: constant Severity: moderate Exacerbating factors: nothing Context: history of dental caries and poor dental care Associated symptoms: Reports no associated symptoms; Denies ear or mastoid pain, fever(s) or odynophagia Treatment prior to arrival: oral analgesic (ibuprofen) Related Data Home Medications Medication Instructions Recorded Confirmed ibuprofen 200 mg tablet (Advil) 800 mg PO Q6H PRN Pain 07/05/24 07/05/24 Previous Rx's Medication Instructions Recorded folic acid 1 mg tablet 1 mg PO DAILY 30 days #30 tabs 06/14/24 hydroxyzine pamoate 25 mg capsule 50 mg (2 x 25 mg) PO Q6H PRN 06/14/24 Anxiety 30 days #90 caps naltrexone microspheres 380 mg 380 mg IM Q28D #1 ea 06/14/24 intramuscular suspension,extended release (Vivitrol) quetiapine 100 mg tablet (Seroquel) 150 mg (1.5 x 100 mg) PO BEDTIME 06/14/24 30 days #30 tabs thiamine mononitrate (vit B1) 100 100 mg PO DAILY 30 days #30 tabs 06/14/24 mg tablet (Vitamin B-1 (mononitrate)) trazodone 50 mg tablet 50 mg PO BEDTIME PRN Sleep 30 days 06/14/24 #30 tabs acetaminophen 500 mg capsule 1,000 mg (2 x 500 mg) PO .q 6-8 07/05/24 PRN pain #30 caps penicillin V potassium 500 mg 500 mg PO Q8H 7 days #21 tabs 07/05/24 tablet Allergies Allergy/AdvReac Type Severity Reaction Status Date / Time No Known Allergies Allergy Verified 06/10/24 19:53 Review of Systems 2 Const: Denies: fever(s), chills, body aches, fatigue or malaise ENMT: Reports: mouth pain and dental pain; Denies: throat pain, uvular edema, enlarged tonsils, odynophagia, hoarseness, oral sores, bleeding gums, ear or mastoid pain, nasal discharge, nasal congestion or sinus pain Card: Denies: chest pain Resp: Denies: dyspnea GI: Denies: nausea or vomiting Musc: Denies: neck pain Neuro: Denies: headache(s) PFSH ED 2 PFSH: Medical History Psychiatric care Social History Smoking and tobacco/nicotine status: current every day tobacco/nicotine user Physical Exam 2 Const: COMMON NORMALS: no acute distress, patient oriented x3, no limitations, alert and well nourished HENMT: FACE & SINUS: sinuses nontender and edema (mild along R mandibular line; no submandibular swelling) FACE & SINUS IMAGES: 1. MOUTH: Normal oral and palatal mucosa present and lip normal TEETH & GINGIVA: Yes caries, Yes poor dentition and Yes other (widespread dental disease with extensive caries throughout) TEETH & GINGIVA IMAGES: 1. significant decay; no drainable abscess formation THROAT: posterior oropharynx normal and tonsils normal; no uvular edema Neck/C-Spine: COMMON NORMALS: no lymphadenopathy GENERAL: Yes normal visual inspection, No anterior neck swelling and No submandibular swelling Resp: COMMON NORMALS: normal respiratory effort and clear to auscultation bilaterally AUSCULTATION: clear to auscultation bilaterally Cardio: COMMON NORMALS: regular rate and regular rhythm RATE: regular rate RHYTHM: regular rhythm Neuro: COMMON NORMALS: patient oriented x3 SENSORIUM/ORIENTATION: Yes alert Course 2 Vital Signs: Vital signs: Vital Signs Temperature 97.6 F 07/05/24 09:25 Pulse Rate 87 07/05/24 09:25 Respiratory Rate 07/05/24 09:25 Blood Pressure 139/72 07/05/24 09:25 Pulse Oximetry 98 07/05/24 09:25 Oxygen Delivery Me thod Room Air 07/05/24 09:25 MDM - Dental/Oral Medical Decision Making Patient will be treated with antibiotics. Recommend prompt dental follow-up. Will try to prescribe her some Tylenol as well to help with discomfort. Patient has a longstanding history of alcohol abuse. She states over the past few days she has been taking large amounts of Ibuprofen. Recommend she discontinue this given the risk of GI bleed/gastritis. Return precautions discussed. Differential Diagnosis Likely gingival abscess, dental caries, toothache and dental abscess Medical Records I reviewed the patient's medical records. No radiology studies performed this visit Discharge Plan Discharge Patient Disposition: Home Clinical Impression: Toothache, Dental caries Condition: Stable Prescriptions: New penicillin V potassium 500 mg tablet 500 mg PO Q8H 7 Days Qty: 21 0RF acetaminophen 500 mg capsule 1,000 mg PO .q 6-8 PRN (Reason: pain) Qty: 30 0RF No Action trazodone 50 mg Tablet 50 mg PO BEDTIME PRN (Reason: Sleep) 30 Days Qty: 30 1RF quetiapine [Seroquel] 100 mg tablet 150 mg PO BEDTIME 30 Days Qty: 30 1RF folic acid 1 mg Tablet 1 mg PO DAILY 30 Days Qty: 30 1RF hydroxyzine pamoate 25 mg Capsule 50 mg PO Q6H PRN (Reason: Anxiety) 30 Days Qty: 90 1RF Vivitrol 380 mg Suspension,Extended Rel Recon 380 mg IM Q28D Qty: 1 1RF Rx Instructions: Next IM monthly shot due 06/09/24 thiamine mononitrate (vit B1) [Vitamin B-1 (mononitrate)] 100 mg Tablet 100 mg PO DAILY 30 Days Qty: 30 1RF ibuprofen [Advil] 200 mg Tablet 800 mg PO Q6H PRN (Reason: Pain) Discharge Orders: Discharge ED (Routine); Ordered 07/05/24 Ordered By: Navya Hare Patient Instructions: Toothache (ED), Mouth Care (ED), Dental Abscess Coding Level of Care Code ED St[employer] Mixer for Janet Bedoya
--- NOTE | 2024-07-05 10:15 | PC.PHAR ---
Patient states she takes the medications list ,but left her purse somewhere and hasn't been able to take them in the last week or two .
[2024-07-05 10:23] VITALS: BP 133/75; PULSE 81; O2SAT 99
== END 2024-07-05 10:24 | disposition home or self-care (01) ==
PROVIDERS: Emergency Provider Physician Assistant
DX: K08.89 Other specified disorders of teeth and supporting structures (principal); K02.9 Dental caries, unspecified
CPT/HCPCS: 99283

== ENCOUNTER 2024-07-06 16:56 | Inpatient (IN) | payer MEDICAID, SELFPAY ==
[2024-07-06 16:57] VITALS: BP 153/96; PULSE 105; RESP 20; TEMP 36.3; O2SAT 100
--- NOTE | 2024-07-06 17:11 | ED.C_ITS ---
HPI - Psych 2 General: Chief Complaint: Psychiatric Symptoms Stated Complaint: mhe Time Seen by Provider: 07/06/24 16:57 Source: patient and police Mode of arrival: ambulatory Limitations: no limitations History of Present Illness: 34-year-old female who is here from the crisis stabilization unit placed under 96-hour hold patient has a history of alcohol abuse she states she been angry and other individuals she had made statements about homicide at the crisis stabilization unit and was placed on a 96-hour hold in the setting here with police Associated symptoms: Reports homicidal ideation Related Data Home Medications Medication Instructions Recorded Confirmed ibuprofen 200 mg tablet (Advil) 800 mg PO Q6H PRN Pain 07/05/24 07/05/24 Previous Rx's Medication Instructions Recorded folic acid 1 mg tablet 1 mg PO DAILY 30 days #30 tabs 06/14/24 hydroxyzine pamoate 25 mg capsule 50 mg (2 x 25 mg) PO Q6H PRN 06/14/24 Anxiety 30 days #90 caps naltrexone microspheres 380 mg 380 mg IM Q28D #1 ea 06/14/24 intramuscular suspension,extended release (Vivitrol) quetiapine 100 mg tablet (Seroquel) 150 mg (1.5 x 100 mg) PO BEDTIME 06/14/24 30 days #30 tabs thiamine mononitrate (vit B1) 100 100 mg PO DAILY 30 days #30 tabs 06/14/24 mg tablet (Vitamin B-1 (mononitrate)) trazodone 50 mg tablet 50 mg PO BEDTIME PRN Sleep 30 days 06/14/24 #30 tabs acetaminophen 500 mg capsule 1,000 mg (2 x 500 mg) PO .q 6-8 07/05/24 PRN pain #30 caps penicillin V potassium 500 mg 500 mg PO Q8H 7 days #21 tabs 07/05/24 tablet Allergies Allergy/AdvReac Type Severity Reaction Status Date / Time No Known Allergies Allergy Verified 06/10/24 19:53 Review of Systems 2 Const: Denies: fever(s), chills, body aches or change in appetite ENMT: Denies: throat pain or dental pain Card: Denies: chest pain Resp: Denies: dyspnea GI: Denies: abdominal pain, nausea, vomiting or diarrhea Musc: Denies: neck pain or back pain Skin/Breast: Denies: rash Neuro: Denies: headache(s) Psych: Reports: homicidal ideation PFS ED 2 PFSH: Medical History Psychiatric care Social History Smoking and tobacco/nicotine status: current every day tobacco/nicotine user Physical Exam 2 Const: COMMON NORMALS: no acute distress, patient oriented x3 and healthy appearing HENMT: COMMON NORMALS: normocephalic and atraumatic HEAD & SCALP: n ormocephalic and atraumatic Eye: COMMON NORMALS: conjunctivae normal CONJUNCTIVA: Yes conjunctivae normal Neck/C-Spine: COMMON NORMALS: full ROM and supple Chest: COMMONS NORMALS: normal inspection of the chest Resp: COMMON NORMALS: normal respiratory effort Cardio: COMMON NORMALS: regular rate RATE: regular rate Extremity: COMMON NORMALS: normal to inspection and full ROM Neuro: COMMON NORMALS: patient oriented x3, moves all extremities and no focal motor deficits Psych: COMMON NORMALS: mental status grossly normal, Normal thought process present and cooperative THOUGHT PROCESS: Normal thought process present Skin: COMMON NORMALS: no rashes or lesions noted and no wounds GENERAL SKIN EXAM: no rashes or lesions noted Course 2 Vital Signs: Vital signs: Vital Signs Temperature 97.4 F L 07/06/24 16:57 Pulse Rate 105 H 07/06/24 16:57 Respiratory Rate 20 H 07/06/24 16:57 Blood Pressure 153/96 07/06/24 16:57 Pulse Oximetry 100 07/06/24 16:57 MDM - Psych Medical Decision Making Patient presents here with homicidal ideations she is placed on a 96-hour hold she is medically cleared spoke to psychiatrist will admit at this time Medical Records I reviewed the patient's medical records. Lab Data I reviewed the patient's lab results. 07/06/24 17:39 07/06/24 17:39 Laboratory Results WBC 10.35 10^3/uL (3.29-11.43) 07/06/24 17:39 RBC 4.09 10^6/uL (3.85-5.65) 07/06/24 17:39 Hgb 13.30 g/dL (11.27-16.99) 07/06/24 17:39 Hct 40.5 % (36-47) 07/06/24 17:39 MCV 99.0 fl (85-98) H 07/06/24 17:39 MCH 32.5 pg (27-33) 07/06/24 17:39 MCHC 32.8 g/dL (30-55) 07/06/24 17:39 RDW 13.0 % (12.1-15.1) 07/06/24 17:39 Plt Count 315 10^3/cmm (157-399) 07/06/24 17:39 MPV 10.0 fL (7.4-10.4) 07/06/24 17:39 Neut % (Auto) 34.7 % 07/06/24 17:39 Lymph % (Auto) 56.1 % 07/06/24 17:39 [place] % (Auto) 5.7 % 07/06/24 17:39 Eos % (Auto) 2.3 % 07/06/24 17:39 Baso % (Auto) 1.0 % 07/06/24 17:39 Neut # (Auto) 3.59 10^3/uL (1.8-7.7) 07/06/24 17:39 Lymph # (Auto) 5.8 10^3/uL (0.8-4.8) H 07/06/24 17:39 [place] # (Auto) 0.6 10^3/uL (0.2-0.9) 07/06/24 17:39 Eos # (Auto) 0.2 10^3/uL (0.0-0.8) 07/06/24 17:39 Baso # (Auto) 0.1 10^3/uL (0.0-0.1) 07/06/24 17:39 Nucleated RBC % (auto) 0 % 07/06/24 17:39 Nucleated RBCs # 0.0 /100WBC 07/06/24 17:39 Sodium 138 mmol/L (136-145) 07/06/24 17:39 Potassium 3.7 mmol/L (3.5-5.1) 07/06/24 17:39 Chloride 101 mmol/L (98-107) 07/06/24 17:39 Carbon Dioxide 27 mmol/L (22-29) 07/06/24 17:39 Anion Gap 13.7 (5-19) 07/06/24 17:39 BUN 15 mg/dL (6-20) 07/06/24 17:39 Creatinine 0.6 mg/dL (0.5-0.9) 07/06/24 17:39 GFR Calculation 137.7 mL/min (90-130) H 07/06/24 17:39 Glucose 117 mg/dL (65-115) H 07/06/24 17:39 Calculated Osmolality 288 mOsm/kg (285-295) 07/06/24 17:39 Calcium 8.9 mg/dL (8.5-10.5) 07/06/24 17:39 Total Bilirubin 0.2 mg/dL (0.15-1.2) 07/06/24 17:39 AST 21 U/L (0-32) 07/06/24 17:39 ALT 12 U/L (0-33) 07/06/24 17:39 Alkaline Phosphatase 91 U/L (35-105) 07/06/24 17:39 Total Protein 7.3 g/dL (6.6-8.7) 07/06/24 17:39 Albumin 3.9 g/dL (3.5-5.2) 07/06/24 17:39 Globulin 3.4 g/dL (1.3-4.6) 07/06/24 17:39 HCG, Qual Negative (Negative) 07/06/24 17:11 Salicylates < 0.3 mg/dL (3-10) L 07/06/24 17:39 Urine Opiates Screen Negative ng/mL (Negative) 07/06/24 17:11 Acetaminophen < 5.0 ug/mL (10-30) L 07/06/24 17:39 Ur Barbiturates Screen Negative ng/mL (Negative) 07/06/24 17:11 Ur Phencyclidine Scrn Negative ng/mL (Negative) 07/06/24 17:11 Ur Amphetamines Screen Positive ng/mL (Negative) H 07/06/24 17:11 U Benzodiazepines Scrn Negative ng/mL (Negative) 07/06/24 17:11 Urine Cocaine Screen Negative ng/mL (Negative) 07/06/24 17:11 U Marijuana (THC) Screen Positive ng/mL (Negative) H 07/06/24 17:11 Ethyl Alcohol 279 mg/dL (0-10) H 07/06/24 17:39 No radiology studies performed this visit Discharge Plan Discharge Patient Disposition: Admitted As Inpatient Clinical Impression: Alcohol dependence, Homicidal ideation Condition: Stable Prescriptions: No Action trazodone 50 mg Tablet 50 mg PO BEDTIME PRN (Reason: Sleep) 30 Days Qty: 30 1RF quetiapine [Seroquel] 100 mg tablet 150 mg PO BEDTIME 30 Days Qty: 30 1RF folic acid 1 mg Tablet 1 mg PO DAILY 30 Days Qty: 30 1RF hydroxyzine pamoate 25 mg Capsule 50 mg PO Q6H PRN (Reason: Anxiety) 30 Days Qty: 90 1RF Vivitrol 380 mg Suspension,Extended Rel Recon 380 mg IM Q28D Qty: 1 1RF Rx Instructions: Next IM monthly shot due 06/09/24 thiamine mononitrate (vit B1) [Vitamin B-1 (mononitrate)] 100 mg Tablet 100 mg PO DAILY 30 Days Qty: 30 1RF penicillin V potassium 500 mg tablet 500 mg PO Q8H 7 Days Qty: 21 0RF acetaminophen 500 mg capsule 1,000 mg PO .q 6-8 PRN (Reason: pain) Qty: 30 0RF ibuprofen [Advil] 200 mg Tablet 800 mg PO Q6H PRN (Reason: Pain) Coding Level of Care Code ED Realtime Reporter for Janet Bedoya
[2024-07-06] MEDS: LORazepam 2 mg/mL INJ 1 mL IM (17:13)
--- NOTE | 2024-07-06 17:15 | PC.NURSE ---
pt belongings removed and security inventoried. this nurse and ED charge witnessed pt change into green paper scrubs.
[2024-07-06 17:21] LABS: HCG Qualitative Urine. Negative (Negative)
[2024-07-06 17:27] LABS: Amphetamines Screen Urine Positive (Negative); Barbiturates Screen Urine Negative (Negative); Benzodiazepines Screen Urine Negative (Negative); Cocaine Screen Urine Negative (Negative); Opiate Screen Urine Negative (Negative); PCP Screen Urine Negative (Negative); THC Screen Urine Positive (Negative)
[2024-07-06 17:54] LABS: Basophils # 0.1 10^3/uL (0.0-0.1); Eosinophils # 0.2 10^3/uL (0.0-0.8); Eosinophils % 2.3 %; Hematocrit 40.5 % (36-47); Lymphocytes # 5.8 10^3/uL (0.8-4.8); Lymphocytes % 56.1 %; Mean Corpuscular HGB Conc 32.8 g/dL (30-55); Mean Corpuscular Hemoglobin 32.5 pg (27-33); Monocytes # 0.6 10^3/uL (0.2-0.9); Monocytes % 5.7 %; Neutrophils # 3.59 10^3/uL (1.8-7.7); Neutrophils % 34.7 %; Nucleated Red Blood Cells % 0 %; Platelet Count 315 10^3/cmm (157-399); Red Blood Count 4.09 10^6/uL (3.85-5.65); White Blood Count 10.35 10^3/uL (3.29-11.43)
[2024-07-06] MEDS: nicotine 21 mg Patch 1 PATCH TRANSDERMA (17:56)
--- NOTE | 2024-07-06 17:57 | PC.NURSE ---
pt resting in room 8 with PSA outside room. pt provided dinner tray, nicotine patch, coke. prior to tray pt was provided x2 sandwiches
[2024-07-06 18:11] LABS: Alanine Aminotransferase 12 U/L (0-33); Albumin Level 3.9 g/dL (3.5-5.2); Alcohol Level 279 mg/dL (0-10); Alkaline Phosphatase 91 U/L (35-105); Anion Gap 13.7 (5-19); Aspartate Amino Transferase 21 U/L (0-32); Blood Urea Nitrogen 15 mg/dL (6-20); Calcium 8.9 mg/dL (8.5-10.5); Carbon Dioxide 27 mmol/L (22-29); Chloride 101 mmol/L (98-107); Creatinine Clr Calc Pharmacy 149.3731; Globulin 3.4 g/dL (1.3-4.6); Glomerular Filtration Rate 137.7 mL/min (90-130); Glucose 117 mg/dL (65-115); Osmolality Calculated 288 mOsm/kg (285-295); Potassium 3.7 mmol/L (3.5-5.1); Sodium 138 mmol/L (136-145); Total Bilirubin 0.2 mg/dL (0.15-1.2); Total Protein 7.3 g/dL (6.6-8.7)
[2024-07-06 18:12] LABS: Acetaminophen < 5.0 ug/mL (10-30); Salicylate < 0.3 mg/dL (3-10)
--- NOTE | 2024-07-06 18:50 | PC.NURSE ---
96 hour hold paperwork and rights presented to patient at 1843. Patient verbalized understanding. Copy of rights given to patient.
[2024-07-06 20:47] VITALS: BP 102/75; PULSE 110; O2SAT 97
[2024-07-06 20:51] VITALS: BP 102/75; PULSE 110; O2SAT 97
[2024-07-06 21:20] VITALS: BP 119/81; PULSE 114; RESP 18; TEMP 37.1; O2SAT 98
[2024-07-06 22:00] VITALS: BP 119/81; PULSE 114; RESP 18; TEMP 37.1; O2SAT 98
[2024-07-06] MEDS: quetiapine 100 mg Tablet 150 MG PO (22:11)
[2024-07-06] MEDS: trazodone 50 mg Tablet PO (22:11)
[2024-07-06] MEDS: hyDROXYzine 25 mg Capsule 50 MG PO (22:12)
[2024-07-06] MEDS: nicotine 4 mg lozenge MUCOUS MEM (22:15)
[2024-07-06 23:58] VITALS: BP 103/66; PULSE 109; RESP 16; TEMP 37.1; O2SAT 98
[2024-07-07 04:00] VITALS: BP 108/72; PULSE 79; RESP 16; TEMP 36.9; O2SAT 98
[2024-07-07 08:00] VITALS: BP 110/74; PULSE 64; RESP 16; TEMP 37.2; O2SAT 96
[2024-07-07] MEDS: multivitamin therapeutic Tablet 1 TAB PO (08:36)
[2024-07-07] MEDS: nicotine 4 mg lozenge MUCOUS MEM ×4 (08:36→21:53)
[2024-07-07] MEDS: thiamine 100 mg Tablet PO (08:36)
[2024-07-07] MEDS: folic acid 1 mg Tablet PO (08:36)
[2024-07-07] MEDS: LORazepam 2 mg Tablet PO ×2 (11:17→16:27)
[2024-07-07] MEDS: acetaminophen 325 mg Tablet 650 MG PO ×2 (11:18→16:28)
[2024-07-07 12:00] VITALS: BP 137/98; PULSE 68; RESP 16; TEMP 37.2; O2SAT 98
[2024-07-07 16:00] VITALS: BP 110/68; PULSE 66; RESP 16; TEMP 36.8; O2SAT 97
--- NOTE | 2024-07-07 16:51 | P.NPUHP_ITS ---
Providers/Chief Complaint 2 Admitting Physician: German Samaniego MD Chief Complaint: mhe HPI NPU History of Present Illness Susan Hernandez is a 34 year old female recently discharged from the neuropsychiatric unit in May 2024 who presented to the emergency department after being placed on a 96-hour hold on 07/06/2024. The patient had reported that someone living next to her tent outside had made a derogatory and big it statement towards her and the patient reports that she had responded to harm this other person while not necessarily stating that she was homicidal towards this person. Patient reports that she was placed on an involuntary hold by the police after arriving at the crisis stabilization unit where she was seeking additional support as she has been getting help with her problems with alcohol dependence. Patient had a blood alcohol level of 279 on admission was positive for marijuana and amphetamines. She had endorsed having used methamphetamines on the day of admission. She reports that she had continued to use alcohol despite adverse consequences. She had reported a past history of alcohol related withdrawal symptoms. She had reported compliance with her medications at home. She reported no recent changes in medications or her living situation since her last hospitalization at the end of May 2024. She minimized any depressive symptoms at this time. She denied any suicidal thoughts. She denied any auditory or visual hallucinations. She did report that she had legal hearings pending for violation of probation. Excerpt from NPU Discharge Summary from 06/16/2024 Discharge Diagnosis (1) Alcohol dependence: Status: Acute Permanent problem details: The patient has completed CIWA detoxification. However, achieving sobriety is ongoing. (2) Major depression: Status: Acute Qualifiers: Major depression recurrence: recurrent Active/Remission status: c urrently active Major depression episode severity: severe Psychotic features: without psychotic features Qualified Code(s): F33.2 - Major depressive disorder, recurrent severe without psychotic features Permanent problem details: The patient was despondent, hopeless and thinking of killing herself. The symptoms have resolved. (3) Suicidal ideation: Status: Resolved (4) Methamphetamine use disorder, severe: Status: Acute (5) Cannabis use disorder: Status: Acute (6) Alcohol use disorder: Status: Acute (7) Alcohol withdrawal: Status: Resolved Reason for Visit stated HI SI Brief History: History of Present Illness Susan Hernandez is a 34 year old female who presented to the emergency department with the following report: Chief Complaint: Psychiatric Symptoms Stated Complaint: stated HI SI Time Seen by Provider: 06/10/24 19:37 History of Present Illness: 34-year-old female with history of depression who presents emergency room with suicidal ideation. She says [place] and family not wanting to be around her have made her depression worse. She also had run out of her medications a week or 2 ago and this is worsened things as well. She says she has lots of different plans to kill herself. She was admitted to the neuropsychiatric unit for definitive treatment of those issues. She is known to [facility] through some limited outpatient and some inpatient services with her last hospitalization being in April of this year. An excerpt of her discharge summary from April is included below for context and the fact that there have been no substantive changes. She presents today reporting that she is really struggling and out of it today secondary to drug abuse and withdrawal. She reports that things have not changed much since she was here last time and she continues to struggle with being homeless and then ran out of her medication because she did not follow through with follow-up as we had discussed. She presented reporting that things were essentially the same as they were the last time she came an excerpt of that discharge summary is included below. We discussed restarting her medication and then trying to assist her and figure out something to do differently so that she does not repeat the same cycle. Per her 05/06/2024 [facility] inpatient psychiatric discharge summary: Discharge Diagnosis (1) Alcohol dependence: Status: Acute Permanent problem details: The patient has completed [facility] detoxification. However, achieving sobriety is ongoing. (2) Major depression: Status: Acute Qualifiers: Active/Remission status: currently active Major depression episode severity: severe Major depression recurrence: recurrent Psychotic features: without psychotic features Qualified Code(s): F33.2 - Major depressive disorder, recurrent severe without psychotic features Permanent problem details: The patient was despondent, hopeless and thinking of killing herself. The symptoms have resolved. (3) Suicidal ideation: Status: Acute (4) Methamphetamine use disorder, severe: Status: Acute (5) Cannabis use disorder: Status: Acute (6) Alcohol use disorder: Status: Acute (7) Alcohol withdrawal: Status: Acute Reason for Visit Reason for Visit: SI/ HI Brief History: History of Present Illness Susan Hernandez is a 34 year old female who presented to the emergency department with the following report: Chief Complaint: Psychiatric Symptoms Stated Complaint: SI/ HI Time Seen by Provider: 04/29/24 02:14 History of Present Illness: 34-year-old female with a history of psychiatric disease. She presents with suicidal ideation. Her plan was to jump off a bridge this morning. She is somewhat intoxicated with alcohol but answering all questions appropriately. She denies other medical problems or illnesses. She was admitted to the neuropsychiatric unit for definitive treatment of those issues. She is known to [facility] psychiatric services through 2 previous inpatient stays over 4 years ago and some recent limited outpatient services. An excerpt of her November 2019 inpatient evaluation is included below for historical context. She presents today reporting: Chief complaint The patient is currently homeless, has been off medication, and has been using drugs. History of the present complaint The patient reported that they have been taking Sopro and Seroquel for their mental health, but it was noted that they had not been taking these medications prior to their current hospital visit. The patient has a history of hospitalization in psychiatric facilities, with the most recent instance being approximately four years ago. The exact number of hospitalizations and the number of different hospitals visited was not specified. The patient has a history of substance use, including alcohol and unspecified drugs. They admitted to having been to rehab when they were 15 years old and have a history of driving under the influence. However, they denied any other charges related to substance use. The patient suggested that their psychosis may be related to their methamphetamine use, but this was not confirmed. The patient reported that they are currently homeless and do not have a source of income. They mentioned having performed a ceremony, but it was unclear what this referred to. The patient did not specify any current symptoms, problems, or concerns related to their mental health, nor did they mention any triggers, risk factors, or functional and emotional impairments. There was no mention of any significant events, traumas, thoughts, beliefs, feelings, aspirations, fears, dreams, or nightmares. The patient did not discuss any previous treatments, interventions, or therapies beyond their current medications. Mental health history The patient has a history of mental health issues, including psychosis and depression. The patient has been hospitalized multiple times in psychiatric hospitals, with the last known admission approximately four years ago. The patient has been taking Sopro and Seroquel, but had stopped taking them prior to the current consultation. The patient has also been to rehab at the age of 15. Social history The patient has a history of substance abuse, including alcohol, cannabis, cocaine, methamphetamine, and opiates. The patient has been charged with DUI/DWI in the past. The patient is currently homeless and does not have a steady source of income. The patient has not been working recently. Per her 11/29/2019 [facility] inpatient psychiatric evaluation: History of Present Illness Chief complaint: I was thinking about killing myself History of present illness:Susan Hernandez is a 29 year old female who finds herself with overwhelming psychosocial problems that seem to have no solution. She has been drinking over 1/5 of vodka daily for over a month. She was feeling hopeless and overwhelmed. She has poor hedonic capacity. She engages in no enjoyable activities. She is cut off from psychosocial support. She is she is sad and blue on a daily basis. Killing herself seem to be a reasonable option. She denies the presence of auditory or visual hallucinations. She denies a history of manic symptoms. She is drinking over 1/5 of liquor per day for the past month. She wakes up at night with the shakes and tremors. She denies blackouts. She admits to craving. She has never had seizures or delirium tremens as a result of stopping her alcohol. She has had problems with alcohol and substance abuse in the past. She went through an inpatient rehabilitation program at age 15. She does not feel that rehabilitation is necessary at this time if she can just develop a reasonable plan to help with her stressors. These are listed below under social history. She has 1 prior DWI 4 years ago. Mental health history: She has had at least 5 prior admissions. Her last was 5 months ago. It was at [facility] in [place]. It was a similar situation. She was off of her medications and again started drinking. She takes Prozac and trazodone and something for anxiety and those usually help her significantly. However she did not have the money to continue her medications though she did have the money to start drinking again. She has had suicidal thoughts before. She has considered walking in front of cars. She has overdosed on at least one occasion though apparently and not with lethality. Social history: The patient grew up in [place] which is up near [place]. She dropped out of school in ninth grade because it just was not for me. 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 She is largely estranged from most of her family. She does still have contact with her father who lives in [place]. However she was vague in stating that he could not help at this time. A month ago, she came to the conclusion that continuing to live in [place] was going to and badly and that she needed to leave. She somehow contacted a man from [place] who invited her to live with him. She is now been here for a month. She is sharing an apartment with 2 other men. Things have turned badly in that situation. He apparently felt that this was going to be a romantic relationship of some sort. She was not of that understanding. She is paying rent for the apartment. He tried to kick her out but police informed him that since she paid rent, she does have that access to that apartment through the end of the month. She has no good explanation as to why someone from [place] would pick [place] as her destination. She says that she just sort of met him online. She was just looking for some place to go. When she loses her access to these apartment, she would be homeless. Legal history: She has no felony arrests. She has an arrest in September 2019 for possession of drug paraphernalia. She has 1 prior DWI and leaving the scene of an accident. Past medical history: Allergies: No known drug allergies Medications: She is on no medications at this time. Previously she was taking Prozac, trazodone, and something for anxiety Surgeries: She had a unilateral oophorectomy and has had surgery for a broken leg. She is 7 para 5. She would like to be on control. Hospital Course Hospital Course She slowly acclimated to the individual, group and milieu therapies provided. She was initially quite disgruntled and irritable and discussed issues with housing, running out of her medication and being nonadherent to treatment. We restarted her medication including Seroquel thiamine and trazodone and she was also reconnected to her Vivitrol injection as well. She had slow and steady improvement with those medications. She worked with the social work team to obtain appropriate follow-up. We discussed the importance of her understanding crisis services including crisis stabilization center for when she finds her self running out of medication and needs connected with resources and things of that nature. She had significant improvement during the stay and was able to contract for safety outside the hospital prior to discharge. During the hospitalization, the patient had routine laboratory studies which were within normal limits except for a few outliers. Additionally, there was a general medical evaluation which was also within normal limits and revealed no new acute processes. She did however have a UTI that was treated with cefdinir during her stay. At the time of discharge, she denied psychosis or lethality. Mood and anxiety were well managed. The patient endorsed a plan to avoid all drugs of abuse and follow up with the aftercare recommendations of the treatment team. The patient was evaluated and deemed to be absent credible lethality and had achieved the maximum benefit from an inpatient hospitalization, and so was discharged. Meds NPU Home Medications Medication Instructions Recorded Confirmed Last Taken Type folic acid 1 mg tablet 1 mg PO DAILY 30 days #30 tabs 06/14/24 07/06/24 Unknown Rx hydroxyzine pamoate 25 mg capsule 50 mg (2 x 25 mg) PO Q6H PRN 06/14/24 07/06/24 Unknown Rx Anxiety 30 days #90 caps naltrexone microspheres 380 mg 380 mg IM Q28D #1 ea 06/14/24 07/06/24 Unknown Rx intramuscular suspension,extended release (Vivitrol) quetiapine 100 mg tablet (Seroquel) 150 mg (1.5 x 100 mg) PO BEDTIME 06/14/24 07/06/24 Unknown Rx 30 days #30 tabs thiamine mononitrate (vit B1) 100 100 mg PO DAILY 30 days #30 tabs 06/14/24 07/06/24 Unknown Rx mg tablet (Vitamin B-1 (mononitrate)) trazodone 50 mg tablet 50 mg PO BEDTIME PRN Sleep 30 days 06/14/24 07/06/24 Unknown Rx #30 tabs acetaminophen 500 mg capsule 1,000 mg (2 x 500 mg) PO .q 6-8 07/05/24 07/06/24 Unknown Rx PRN pain #30 caps ibuprofen 200 mg tablet (Advil) 800 mg PO Q6H PRN Pain 01/17/25 01/18/25 01/16/25 History penicillin V potassium 500 mg 500 mg PO Q8H 7 days #21 tabs 07/05/24 07/06/24 Unknown Rx tablet Allergies Allergy/AdvReac Type Severity Reaction Status Date / Time No Known Allergies Allergy Verified 06/10/24 19:53 PFSH NPU 2 PFSH: Medical History Psychiatric care Social History Smoking and tobacco/nicotine status: current every day tobacco/nicotine user Mental Status Exam 2 MSE Comments: This is an obese -Swedish female in hospital scrubs with limited grooming and nearly no eye contact. No abnormal movements, except for mild psychomotor retardation. She was cooperative with exam in no acute distress. Speech was normal in rate and productivity. Mood described as okay. Her affect was restricted in range. Thought process was linear. Thought content: patient endorsed no suicidal or homicidal thoughts/ideation. There were no delusions reported with no clear paranoia appreciated. She denied current auditory or visual hallucinations and did not appear to be responding to internal stimuli. Attention and concentration appeared intact, and memory was seeming reliable, but none were formally tested. She is alert and oriented times person and place and time. Insight and judgment are impaired. Impulse control is impaired. Vitals/I&O/Wt Last Vital Signs Temp 98.9 F 07/07/24 12:00 Pulse 68 07/07/24 12:00 Resp 16 07/07/24 12:00 BP 137/98 07/07/24 12:00 Pulse Ox 98 07/07/24 12:00 O2 Del Method Room Air 07/07/24 12:00 Weight last 48 hrs Weight 95.254 kg Weight 95.254 kg Data NPU 07/06/24 17:39 07/06/24 17:39 A&P Assessment and plan (1) Alcohol dependence: (2) Major depression: Qualifiers: Major depression recurrence: recurrent Active/Remission status: c urrently active Major depression episode severity: severe Psychotic features: without psychotic features Qualified Code(s): F33.2 - Major depressive disorder, recurrent severe without psychotic features (3) Suicidal ideation: (4) Methamphetamine use disorder, severe: (5) Cannabis use disorder: (6) Alcohol use disorder: (7) Alcohol withdrawal: Plan This is a 34-year-old -[place]ish female with a history of mental health and addiction issues with past inpatient but limited outpatient services who presents on a 96-hour hold less than a month after her last admission with homicidal ideation and alcohol use. 1.? Restart outpatient psychiatric medications. 2.? Continue every 15 minute checks for safety. 3.? Encourage individual, group and milieu therapies. 4. Encourage sober living treatment after discharge at the highest level care to which she is willing to commit. 5. Get collateral information. CIWA for alcohol withdrawal. 6. Evaluate for safety against the backdrop of 96-hour hold. Involuntary Hold Information 2 96 Hour Hold: 96 Hour Involuntary Admission: Yes 96 Hour Hold Ending Date: 07/15/24 96 Hour Hold Ending Time: 00:01 Other Hold: Hold End Date: 07/15/24 Attestations NPU 2 Medical Necessity Statement*: Inpatient hospitalization is medically necessary and deemed to ?be ?the clinically appropriate intervention ?at this time.? We will monitor/initiate medications and make changes as indicated.? The patient will be in the hospital for over 2 midnights.? The patient?s likely length of stay 3-4 days. Coding Level of Care Code Acute Code for [facility] Fwd Diagnoses Alcohol dependence with uncomplicated withdrawal F10.20 Severe episode of recurrent major depressive disorder, without psychotic features F33.2 Major depression recurrence: recurrent Active/Remission status: currently active Major depression episode severity: severe Psychotic features: without psychotic features Suicidal ideation R45.851 Methamphetamine use disorder, severe F15.20 Cannabis use disorder F12.90 Alcohol use disorder F10.90 Alcohol withdrawal F10.939
[2024-07-07] MEDS: OLANZapine 5 mg ODT PO (18:07)
[2024-07-07 20:00] VITALS: BP 125/89; PULSE 101; RESP 16; TEMP 36.9; O2SAT 98
[2024-07-07] MEDS: hyDROXYzine 25 mg Capsule 50 MG PO (21:52)
[2024-07-07] MEDS: quetiapine 100 mg Tablet 150 MG PO (21:53)
[2024-07-08] VITALS (7 sets, daily range): BP systolic 93–123; BP diastolic 57–84; PULSE 67–95; RESP 16–18; TEMP 36.5–36.8; O2SAT 96–100
[2024-07-08] MEDS: folic acid 1 mg Tablet PO (08:36)
[2024-07-08] MEDS: multivitamin therapeutic Tablet 1 TAB PO (08:36)
[2024-07-08] MEDS: OLANZapine 5 mg ODT PO (08:36)
[2024-07-08] MEDS: thiamine 100 mg Tablet PO (08:36)
[2024-07-08] MEDS: nicotine 4 mg lozenge MUCOUS MEM ×4 (08:36→20:15)
[2024-07-08] MEDS: hyDROXYzine 25 mg Capsule 50 MG PO ×2 (14:59→20:15)
[2024-07-08] MEDS: haloperidol 5 mg Tablet PO (16:56)
--- NOTE | 2024-07-08 17:39 | P.NPUPN_ITS ---
Subjective NPU 2 Subjective: 34-year-old female with a history of alc ohol dependence and methamphetamine use along with unspecified mood disorder admitted with suicidal ideation with a blood alcohol level of 279. The patient had continued to endorse that she has had a history of alcohol related withdrawal symptoms. She reported no history of inpatient substance abuse treatment despite significant history of methamphetamine use as well as alcohol use. No side effects from her medication were noted. The patient continue to remain on a CIWA at this time. Mental Status Exam 2 MSE Comments: This is an obese -[place] female in hospital scrubs with limited grooming and nearly no eye contact. No abnormal movements, except for mild psychomotor retardation. She was cooperative with exam in no acute distress. Speech was normal in rate and productivity. Mood described as okay. Her affect was restricted in range. Thought process was linear. Thought content: patient endorsed no suicidal or homicidal thoughts/ideation. There were no delusions reported with no clear paranoia appreciated. She denied current auditory or visual hallucinations and did not appear to be responding to internal stimuli. Attention and concentration appeared intact, and memory was seeming reliable, but none were formally tested. She is alert and oriented times person and place and time. Insight and judgment are impaired. Impulse control is impaired. Vitals/I&O/Wt Last Vital Signs Temp 98.2 F 07/08/24 15:37 Pulse 86 07/08/24 15:37 Resp 18 07/08/24 15:37 BP 118/59 07/08/24 15:37 Pulse Ox 100 07/08/24 15:37 O2 Del Method Room Air 07/07/24 16:00 Weight last 48 hrs Weight 95.254 kg Data NPU 07/06/24 17:39 07/06/24 17:39 A&P Assessment and plan (1) Alcohol dependence: (2) Major depression: Qualifiers: Major depression recurrence: recurrent Active/Remission status: c urrently active Major depression episode severity: severe Psychotic features: without psychotic features Qualified Code(s): F33.2 - Major depressive disorder, recurrent severe without psychotic features (3) Suicidal ideation: (4) Methamphetamine use disorder, severe: (5) Cannabis use disorder: (6) Alcohol use disorder: (7) Alcohol withdrawal: Plan This is a 34-year-old -[place] female with a history of mental health and addiction issues with past inpatient but limited outpatient services who presents on a 96-hour hold less than a month after her last admission with homicidal ideation and alcohol use. 1.? Continue Seroquel 150mg at night. 2.? Continue every 15 minute checks for safety. 3.? Encourage individual, group and milieu therapies. 4. Encourage sober living treatment after discharge at the highest level care to which she is willing to commit. 5. Get collateral information. CIWA for alcohol withdrawal. 6. Evaluate for safety against the backdrop of 96-hour hold. Involuntary Hold Information 2 96 Hour Hold: 96 Hour Involuntary Admission: Yes 96 Hour Hold Ending Date: 07/15/24 96 Hour Hold Ending Time: 00:01 Other Hold: Hold End Date: 07/15/24 Attestations NPU 2 Medical Necessity Statement*: Inpatient hospitalization is medically necessary and deemed to ?be ?the clinically appropriate intervention ?at this time.? We will monitor/initiate medications and make changes as indicated.? The patient?s likely length of stay 3-4 days. Coding Level of Care Code Acute Code for [facility] Fwd Diagnoses Alcohol dependence with uncomplicated withdrawal F10.20 Severe episode of recurrent major depressive disorder, without psychotic features F33.2 Major depression recurrence: recurrent Active/Remission status: currently active Major depression episode severity: severe Psychotic features: without psychotic features Suicidal ideation R45.851 Methamphetamine use disorder, severe F15.20 Cannabis use disorder F12.90 Alcohol use disorder F10.90 Alcohol withdrawal F10.939
[2024-07-08] MEDS: acetaminophen 325 mg Tablet 650 MG PO (20:15)
[2024-07-08] MEDS: quetiapine 100 mg Tablet 150 MG PO (20:15)
[2024-07-09 03:55] VITALS: BP 124/80; PULSE 72; RESP 16; TEMP 36.4; O2SAT 98
[2024-07-09] MEDS: nicotine 4 mg lozenge MUCOUS MEM ×4 (09:11→19:32)
[2024-07-09] MEDS: folic acid 1 mg Tablet PO (09:11)
[2024-07-09] MEDS: hyDROXYzine 25 mg Capsule 50 MG PO ×2 (09:11→19:32)
[2024-07-09] MEDS: thiamine 100 mg Tablet PO (09:11)
[2024-07-09] MEDS: multivitamin therapeutic Tablet 1 TAB PO (09:11)
[2024-07-09] MEDS: OLANZapine 5 mg ODT PO (11:24)
[2024-07-09 14:00] VITALS: BP 129/85; PULSE 91; RESP 16; TEMP 36.8; O2SAT 100
[2024-07-09] MEDS: haloperidol 5 mg Tablet PO (14:49)
--- NOTE | 2024-07-09 14:58 | W.PM.NPUPNS ---
Subjective NPU Subjective: 34-year-old female with a history of alcohol dependence and methamphetamine use along with unspecified mood disorder admitted with suicidal ideation with a blood alcohol level of 279. The patient stated that she was no longer feeling homicidal. She had reported a history of alcohol related withdrawal symptoms. She did not appear to require additional as needed medications for alcohol withdrawal yet. She had remained resistant to receiving inpatient substance abuse treatment. She had reported some difficulties with falling asleep. She had stated that she was going back with her boyfriend and stated that she did not feel like harming anyone currently. She had admitted to methamphetamine use as well. Information was provided to her regarding digital therapeutic applications for treating amphetamine abuse. Mental Status Exam MSE Comments: This is an obese -Citizen [place] female in hospital scrubs with limited grooming and nearly no eye contact. No abnormal movements, except for mild psychomotor retardation. She was cooperative with exam in no acute distress. Speech was normal in rate and productivity. Mood described as okay. Her affect was restricted in range. Thought process was linear. Thought content: patient endorsed no suicidal or homicidal thoughts/ideation. There were no delusions reported with no clear paranoia appreciated. She denied current auditory or visual hallucinations and did not appear to be responding to internal stimuli. Attention and concentration appeared intact, and memory was seeming reliable, but none were formally tested. She is alert and oriented times person and place and time. Insight and judgment are impaired. Impulse control is improving. Vitals/I&O/Wt Last Vital Signs Temp 98.3 F 07/09/24 14:00 Pulse 91 07/09/24 14:00 Resp 16 07/09/24 14:00 BP 129/85 07/09/24 14:00 Pulse Ox 100 07/09/24 14:00 O2 Del Method Room Air 07/09/24 14:00 Data NPU 07/06/24 17:39 07/06/24 17:39 A&P Assessment and plan (1) Alcohol dependence: (2) Major depression: Qualifiers: Major depression recurrence: recurrent Active/Remission status: currently active Major depression episode severity: severe Psychotic features: without psychotic features Qualified Code(s): F33.2 - Major depressive disorder, recurrent severe without psychotic features (3) Suicidal ideation: (4) Methamphetamine use disorder, severe: (5) Cannabis use disorder: (6) Alcohol use disorder: (7) Alcohol withdrawal: Plan This is a 34-year-old -Citizen Of [place] female with a history of mental health and addiction issues with past inpatient but limited outpatient services who presents on a 96-hour hold less than a month after her last admission with homicidal ideation and alcohol use. 1.? Increase seroquel 200mg at night. 2.? Continue every 15 minute checks for safety. 3.? Encourage individual, group and milieu therapies. 4. Encourage sober living treatment after discharge at the highest level care to which she is willing to commit. 5. Get collateral information. CIWA for alcohol withdrawal. 6. Evaluate for safety against the backdrop of 96-hour hold. Involuntary Hold Information 96 Hour Hold: 96 Hour Involuntary Admission: Yes 96 Hour Hold Ending Date: 07/15/24 96 Hour Hold Ending Time: 00:01 Other Hold: Hold End Date: 07/15/24 Attestations NPU Medical Necessity Statement*: Inpatient hospitalization is medically necessary and deemed to ?be ?the clinically appropriate intervention ?at this time.? We will monitor/initiate medications and make changes as indicated.? The patient?s likely length of stay 3-4 days. Coding Level of Care Code Acute Code for Chg Fwd Diagnoses Alcohol dependence with uncomplicated withdrawal F10.20 Severe episode of recurrent major depressive disorder, without psychotic features F33.2 Major depression recurrence: recurrent Active/Remission status: currently active Major depression episode severity: severe Psychotic features: without psychotic features Suicidal ideation R45.851 Methamphetamine use disorder, severe F15.20 Cannabis use disorder F12.90 Alcohol use disorder F10.90 Alcohol withdrawal F10.939
[2024-07-09 19:25] VITALS: BP 117/88; PULSE 93; RESP 16; TEMP 36.8; O2SAT 96
[2024-07-09] MEDS: quetiapine 100 mg Tablet 200 MG PO (19:31)
[2024-07-10 00:01] VITALS: BP 117/88; PULSE 93; RESP 16; TEMP 36.8; O2SAT 96
[2024-07-10 04:01] VITALS: BP 115/70; PULSE 102; RESP 12; TEMP 36.6; O2SAT 98
[2024-07-10] MEDS: hyDROXYzine 25 mg Capsule 50 MG PO (09:20)
[2024-07-10] MEDS: folic acid 1 mg Tablet PO (09:20)
[2024-07-10] MEDS: multivitamin therapeutic Tablet 1 TAB PO (09:20)
[2024-07-10] MEDS: thiamine 100 mg Tablet PO (09:20)
[2024-07-10] MEDS: nicotine 4 mg lozenge MUCOUS MEM ×2 (09:20→12:35)
--- NOTE | 2024-07-10 12:13 | W.PM.NPUDCS ---
Diagnoses at Discharge Discharge Diagnosis (1) Alcohol dependence: Status: Acute Permanent problem details: The patient has completed [facility] detoxification. However, achieving sobriety is ongoing. (2) Major depression: Status: Acute Qualifiers: Major depression recurrence: recurrent Active/Remission status: currently active Major depression episode severity: severe Psychotic features: without psychotic features Qualified Code(s): F33.2 - Major depressive disorder, recurrent severe without psychotic features Permanent problem details: The patient was despondent, hopeless and thinking of killing herself. The symptoms have resolved. (3) Suicidal ideation: Status: Resolved (4) Methamphetamine use disorder, severe: Status: Acute (5) Cannabis use disorder: Status: Acute (6) Alcohol use disorder: Status: Acute (7) Alcohol withdrawal: Status: Resolved Reason for Visit Reason for Visit: [facility] Hospital Course Hospital Course During the hospitalization, the patient had routine laboratory studies which were within normal limits except for a few outliers.? Additionally, there was a general medical evaluation which was also within normal limits and revealed no new acute processes.? At the time of discharge, lethality was denied and psychosis was resolving.? Mood and anxiety were well managed.? The patient endorsed a plan to avoid all drugs of abuse and follow up with the aftercare recommendations of the treatment team.? The patient was evaluated and deemed to be absent credible lethality and had achieved the maximum benefit from an inpatient hospitalization, and so was discharged. ? She showed no interest in considering inpatient substance abuse treatment despite adverse consequences from continued drug use. Involuntary Hold Information 96 Hour Hold: 96 Hour Involuntary Admission: Yes 96 Hour Hold Ending Date: 07/15/24 96 Hour Hold Ending Time: 00:01 Other Hold: Hold End Date: 07/15/24 Mental Status Exam MSE Comments: This is an obese -[place] female in hospital scrubs with limited grooming and nearly no eye contact. No abnormal movements, except for mild psychomotor retardation. She was cooperative with exam in no acute distress. Speech was normal in rate and productivity. Mood described as good. Her affect was slightly restricted. Thought process was linear. Thought content: patient endorsed no suicidal or homicidal thoughts/ideation. There were no delusions reported with no clear paranoia appreciated. She denied current auditory or visual hallucinations and did not appear to be responding to internal stimuli. Attention and concentration appeared intact, and memory was seeming reliable, but none were formally tested. She is alert and oriented times person and place and time. Insight and judgment are impaired. Impulse control is improving. Discharge Data Studies Completed and Pending: Laboratory Results WBC 10.35 10^3/uL (3. 29-11.43) 07/06/24 17:39 RBC 4.09 10^6/uL (3.8 5-5.65) 07/06/24 17:39 Hgb 13.30 g/dL (11.27 -16.99) 07/06/24 17:39 Hct 40.5 % (36-47) 07/06/24 17:39 MCV 99.0 fl (85-98) H 07/06/24 17:39 MCH 32.5 pg (27-33) 07/06/24 17:39 MCHC 32.8 g/dL (30-55) 07/06/24 17:39 RDW 13.0 % (12.1-15.1 ) 07/06/24 17:39 Plt Count 315 10^3/cmm (157 -399) 07/06/24 17:39 MPV 10.0 fL (7.4-10.4 ) 07/06/24 17:39 Neut % (Auto) 34.7 % 07/06/24 17:39 Lymph % (Auto) 56.1 % 07/06/24 17:39 Mckenzie % (Auto) 5.7 % 07/06/24 17:39 Eos % (Auto) 2.3 % 07/06/24 17:39 Baso % (Auto) 1.0 % 07/06/24 17:39 Neut # (Auto) 3.59 10^3/uL (1.8 -7.7) 07/06/24 17:39 Lymph # (Auto) 5.8 10^3/uL (0.8- 4.8) H 07/06/24 17:39 Mckenzie # (Auto) 0.6 10^3/uL (0.2- 0.9) 07/06/24 17:39 Eos # (Auto) 0.2 10^3/uL (0.0- 0.8) 07/06/24 17:39 Baso # (Auto) 0.1 10^3/uL (0.0- 0.1) 07/06/24 17:39 Nucleated RBC % (a uto) 0 % 07/06/24 17:39 Nucleated RBCs # 0.0 /100WBC 07/06/24 17:39 Sodium 138 mmol/L (136-1 45) 07/06/24 17:39 Potassium 3.7 mmol/L (3.5-5 .1) 07/06/24 17:39 Chloride 101 mmol/L (98-10 7) 07/06/24 17:39 Carbon Dioxide 27 mmol/L (22-29) 07/06/24 17:39 Anion Gap 13.7 (5-19) 07/06/24 17:39 BUN 15 mg/dL (6-20) 07/06/24 17:39 Creatinine 0.6 mg/dL (0.5-0. 9) 07/06/24 17:39 GFR Calculation 137.7 mL/min (90- 130) H 07/06/24 17:39 Glucose 117 mg/dL (65-115 ) H 07/06/24 17:39 Calculated Osmolal ity 288 mOsm/kg (285- 295) 07/06/24 17:39 Calcium 8.9 mg/dL (8.5-10 .5) 07/06/24 17:39 Total Bilirubin 0.2 mg/dL (0.15-1 .2) 07/06/24 17:39 AST 21 U/L (0-32) 07/06/24 17:39 ALT 12 U/L (0-33) 07/06/24 17:39 Alkaline Phosphata se 91 U/L (35-105) 07/06/24 17:39 Total Protein 7.3 g/dL (6.6-8.7 ) 07/06/24 17:39 Albumin 3.9 g/dL (3.5-5.2 ) 07/06/24 17:39 Globulin 3.4 g/dL (1.3-4.6 ) 07/06/24 17:39 HCG, Qual Negative (Negati ve) 07/06/24 17:11 Salicylates < 0.3 mg/dL (3-10 ) L 07/06/24 17:39 Urine Opiates Scre en Negative ng/mL (N egative) 07/06/24 17:11 Acetaminophen < 5.0 ug/mL (10-3 0) L 07/06/24 17:39 Ur Barbiturates Sc reen Negative ng/mL (N egative) 07/06/24 17:11 Ur Phencyclidine S crn Negative ng/mL (N egative) 07/06/24 17:11 Ur Amphetamines Sc reen Positive ng/mL (N egative) H 07/06/24 17:11 U Benzodiazepines Scrn Negative ng/mL (N egative) 07/06/24 17:11 Urine Cocaine Scre en Negative ng/mL (N egative) 07/06/24 17:11 U Marijuana (THC) Screen Positive ng/mL (N egative) H 07/06/24 17:11 Ethyl Alcohol 279 mg/dL (0-10) H 07/06/24 17:39 Vitals: Last Vital Signs Temp 97.9 F 07/10/24 04:01 Pulse 102 H 07/10/24 04:01 Resp 12 07/10/24 04:01 BP 115/70 07/10/24 04:01 Pulse Ox 98 07/10/24 04:01 O2 Del Method Room Air 07/10/24 04:01 Discharge Plan Discharge Patient Disposition: Home Condition: Stable Prescriptions: New olanzapine 5 mg Tablet,Disintegrating 5 mg PO Q4H PRN (Reason: Agitation/Psychosis) 30 Days Qty: 15 1RF quetiapine 100 mg Tablet 200 mg PO BEDTIME 30 Days Qty: 60 1RF Continued trazodone 50 mg Tablet 50 mg PO BEDTIME PRN (Reason: Sleep) 30 Days Qty: 30 1RF quetiapine [Seroquel] 100 mg tablet 150 mg PO BEDTIME 30 Days Qty: 30 1RF folic acid 1 mg Tablet 1 mg PO DAILY 30 Days Qty: 30 1RF hydroxyzine pamoate 25 mg Capsule 50 mg PO Q6H PRN (Reason: Anxiety) 30 Days Qty: 90 1RF Vivitrol 380 mg Suspension,Extended Rel Recon 380 mg IM Q28D Qty: 1 1RF Rx Instructions: Next IM monthly shot due 06/09/24 thiamine mononitrate (vit B1) [Vitamin B-1 (mononitrate)] 100 mg Tablet 100 mg PO DAILY 30 Days Qty: 30 1RF penicillin V potassium 500 mg tablet 500 mg PO Q8H 7 Days Qty: 21 0RF acetaminophen 500 mg capsule 1,000 mg PO .q 6-8 PRN (Reason: pain) Qty: 30 0RF ibuprofen [Advil] 200 mg Tablet 800 mg PO Q6H PRN (Reason: Pain) Discharge Orders: Discharge Order (Routine); Ordered 07/10/24 Ordered By: German Samaniego Referrals: Ciera Posadas, PMHNP [Staff Physician] - Discharge Diet: Usual diet Discharge Activity: Resume usual activity Patient Instructions: Opioid Safety Discharge Attestations NPU Time Spent in Discharge Care*: less than 30 min Specific Discharge Activities: Specific discharge activities: educating patient, discussing with patient case manager/social workers/dc planners and documenting/other paperwork Status at Discharge: Cognitive status at discharge: cognitively intact, Behavioral status at discharge: cooperative, Coding Level of Care Code Acute Code for Chg Fwd Diagnoses Alcohol dependence with uncomplicated withdrawal F10.20 Severe episode of recurrent major depressive disorder, without psychotic features F33.2 Major depression recurrence: recurrent Active/Remission status: currently active Major depression episode severity: severe Psychotic features: without psychotic features Suicidal ideation R45.851 Methamphetamine use disorder, severe F15.20 Cannabis use disorder F12.90 Alcohol use disorder F10.90 Alcohol withdrawal F10.939
[2024-07-10 12:22] VITALS: BP 115/70; PULSE 102; RESP 12; TEMP 36.6; O2SAT 98
[2024-07-10] MEDS: OLANZapine 5 mg ODT PO (13:58)
[2024-07-10 13:59] VITALS: BP 134/91; PULSE 108; RESP 16; TEMP 37.2; O2SAT 97
== END 2024-07-10 15:18 | disposition home or self-care (01) | DRG 885 ==
LOC: ER 18:33 → NP 18:46
PROVIDERS: Admitting Provider Psychiatry & Neurology Psychiatry; Emergency Provider Emergency Medicine; Visit Provider Psychiatry & Neurology Psychiatry
DX: F33.2 Major depressive disorder, recurrent severe without psychotic features (principal); R45.851 Suicidal ideations; F15.20 Other stimulant dependence, uncomplicated; F10.20 Alcohol dependence, uncomplicated; Y90.8 Blood alcohol level of 240 mg/100 ml or more; E66.9 Obesity, unspecified; Z68.34 Body mass index [BMI] 34.0-34.9, adult
CPT/HCPCS: 36415; 80053; 80306; 80307; 81025; 85025; 96372; 97150; 97165; 99285; J2060

== ENCOUNTER 2024-08-01 11:23 | Emergency (ER) | payer MEDICAID, SELFPAY ==
[2024-08-01 11:45] VITALS: BP 131/84; PULSE 95; RESP 18; TEMP 36.8; O2SAT 97
[2024-08-01 14:42] LABS: Basophils # 0.1 10^3/uL (0.0-0.1); Basophils % 0.7 %; Eosinophils % 0.1 %; Hematocrit 47.5 % (36-47); Lymphocytes # 3.2 10^3/uL (0.8-4.8); Lymphocytes % 19.8 %; Mean Corpuscular HGB Conc 34.1 g/dL (30-55); Mean Corpuscular Volume 96.7 fl (85-98); Monocytes # 0.8 10^3/uL (0.2-0.9); Monocytes % 4.7 %; Neutrophils # 12.02 10^3/uL (1.8-7.7); Neutrophils % 74.4 %; Nucleated Red Blood Cells % 0 %; Platelet Count 321 10^3/cmm (157-399); Red Blood Count 4.91 10^6/uL (3.85-5.65); Red Cell Distribution Width 12.6 % (12.1-15.1); White Blood Count 16.14 10^3/uL (3.29-11.43)
[2024-08-01 15:05] LABS: Alanine Aminotransferase 35 U/L (0-33); Albumin Level 4.3 g/dL (3.5-5.2); Alkaline Phosphatase 120 U/L (35-105); Anion Gap 22.6 (5-19); Aspartate Amino Transferase 71 U/L (0-32); Blood Urea Nitrogen 15 mg/dL (6-20); Calcium 9.7 mg/dL (8.5-10.5); Carbon Dioxide 23 mmol/L (22-29); Chloride 93 mmol/L (98-107); Creatinine Clr Calc Pharmacy 124.8211; Globulin 4.3 g/dL (1.3-4.6); Glomerular Filtration Rate 115.2 mL/min (90-130); Glucose 113 mg/dL (65-115); Magnesium 1.5 mg/dL (1.7-2.3); Osmolality Calculated 282 mOsm/kg (285-295); Potassium 3.6 mmol/L (3.5-5.1); Sodium 135 mmol/L (136-145); Total Bilirubin 1.6 mg/dL (0.15-1.2); Total Protein 8.6 g/dL (6.6-8.7)
[2024-08-01 15:07] LABS: Alcohol Level < 10 mg/dL (0-10)
--- NOTE | 2024-08-01 16:52 | ED_ITS ---
Documented by User: Santo Knott DO 08/02/24 05:53 HPI - General Adult 2 General: Chief complaint: General Medical Stated complaint: withdraws sent from crisis Time Seen by Provider: 08/01/24 16:52 History of Present Illness: 34-year-old female presents emergency ro om complaining of alcohol withdrawal. Last drink was at around 1800 last night. Patient states she usually drinks about a half a gallon or more of hard liquor per day. She has not drank in a little over 24 hours because she does not have any money to buy liquor. She is not particular interested in stopping her drinking. She has had a lot of vomiting she has abdominal pain and tremors as well. No seizures. In the past when she is either attempted to stop or been forced to stop drinking she has had similar problems but never had seizures associated with it. Associated symptoms: Reports nausea and vomiting; Deny chest pain, dyspnea or rash Related Data Home Medications ?Medication ?Instructions ?Recorded ?Confirmed ibuprofen 200 mg tablet (Advil) 800 mg PO Q6H PRN Pain 07/05/24 07/06/24 Previous Rx's ?Medication ?Instructions ?Recorded naltrexone microspheres 380 mg 380 mg IM Q28D #1 ea intramuscular suspension,extended release (Vivitrol) quetiapine 100 mg tablet (Seroquel) 150 mg (1.5 x 100 mg) PO BEDTIME 06/14/24 30 days #30 tabs trazodone 50 mg tablet 50 mg PO BEDTIME PRN Sleep 3 0 days 06/14/24 #30 tabs acetaminophen 500 mg capsule 1,000 mg (2 x 500 mg) PO .q 6-8 07/05/24 PRN pain #30 caps olanzapine 5 mg disintegrating 5 mg PO Q4H PRN 5 tablet Agitation/Psychosis 30 days #15 tabs quetiapine 100 mg tablet 200 mg (2 x 100 mg) PO BEDTI ME 30 07/10/24 days #60 tabs cephalexin 500 mg tablet 500 mg PO TID 7 days #21 tab s 08/01/24 Allergies Allergy/AdvReac Type Severity Reaction Status Date / Time No Known Allergies Allergy Verified 06/10/24 19:53 Review of Systems 2 Const: Denies: fever(s) or chills Card: Denies: chest pain Resp: Denies: dyspnea GI: Reports: abdominal pain, nausea and vomiting : Denies: dysuria, urinary frequency or urinary urgency Musc: Denies: neck pain or back pain Skin/Breast: Denies: rash PFSH ED 2 PFSH: Medical History Psychiatric care Social History Smoking and tobacco/nicotine status: current every day tobacco/nicotine user Physical Exam 2 Const: GENERAL APPEARANCE: cooperative ORIENTATION/CONSCIOUSNESS: Yes awake, Yes oriented to person, Yes oriented to place and Yes oriented to time HENMT: COMMON NORMALS: normocephalic, atraumatic and hearing grossly normal bilaterally HEAD & SCALP: normocephalic and atraumatic Resp: COMMON NORMALS: normal respiratory effort, No retractions, No use of accessory muscles and clear to auscultation bilaterally AUSCULTATION: clear to auscultation bilaterally Cardio: COMMON NORMALS: regular rate, regular rhythm and No murmurs present (Cardio) RATE: regular rate RHYTHM: regular rhythm GI: PALPATION: Yes Tenderness to palpation present (GI) (epigastric) Details: RUQ and No Guarding due to palpation present (GI) Extremity: COMMON NORMALS: normal to inspection, capillary refill normal, no clubbing, cyanosis or edema, no calf tenderness and no pedal edema Neuro: SENSORIUM/ORIENTATION: Yes oriented to person, Yes oriented to place and Yes oriented to time Skin: COMMON NORMALS: no rashes or lesions noted GENERAL SKIN EXAM: no rashes or lesions noted Course 2 Vital Signs: Vital signs: Vital Signs Temperature 98.3 F 08/01/24 11:45 Pulse Rate 104 H 08/01/24 19:43 Respiratory Rate 18 08/01/24 19:43 Blood Pressure 109/78 08/01/24 19:43 Pulse Oximetry 96 08/01/24 19:43 Oxygen Delivery Me thod Room Air 08/01/24 11:45 MDM - General Adult Medical Decision Making Care signed out to Dr. Borrego at change of shift. See final notes for diagnosis and disposition. Patient care transitioned me at shift change. CT of the abdomen pelvis showed no acute process. This was reviewed and interpreted by myself the emergency room physician. I also reviewed the radiology report. Lab work: Patient did not have pancreatitis. She does have a UTI. She does appear quite dry in her urine. 2 L of fluid being given. Ativan have been given. She says she feels much better. We discussed admission for alcohol withdrawal versus going home to drink and the person is with her says he can get her some alcohol and she says she does not want to quit drinking at this point. She is no longer having any withdrawal symptoms and they say they can get alcohol. I discussed the if she is at the point when she is ready to quit to seek help. Assessment and plan: Dehydration Alcohol abuse Alcohol withdrawal UTI Abdominal pain ? IV Ativan, IV fluids, IV Rocephin. - Discharged home - Discussed plan with patient. Answered any questions. - Evaluation and treatment of this problem were appropriate in the emergency setting. Medical Records I reviewed the patient's medical records. Lab Data I reviewed the patient's lab results. 08/01/24 14:21 08/01/24 14:21 Radiology Impressions Abdomen/Pelvis CT 08/01/24 17:16 IMPRESSION: No acute intra-abdominal or pelvic process. Laboratory Results WBC 16.14 10^3/uL (3.29-11.43) H 08/01/24 14:21 RBC 4.91 10^6/uL (3.85-5.65) 08/01/24 14:21 Hgb 16.20 g/dL (11.27-16.99) 08/01/24 14:21 Hct 47.5 % (36-47) H 08/01/24 14:21 MCV 96.7 fl (85-98) 08/01/24 14:21 MCH 33.0 pg (27-33) 08/01/24 14:21 MCHC 34.1 g/dL (30-55) 08/01/24 14:21 RDW 12.6 % (12.1-15.1) 08/01/24 14:21 Plt Count 321 10^3/cmm (157-399) 08/01/24 14:21 MPV 10.0 fL (7.4-10.4) 08/01/24 14:21 Neut % (Auto) 74.4 % 08/01/24 14:21 Lymph % (Auto) 19.8 % 08/01/24 14:21 [place] % (Auto) 4.7 % 08/01/24 14:21 Eos % (Auto) 0.1 % 08/01/24 14:21 Baso % (Auto) 0.7 % 08/01/24 14:21 Neut # (Auto) 12.02 10^3/uL (1.8-7.7) H 08/01/24 14:21 Lymph # (Auto) 3.2 10^3/uL (0.8-4.8) 08/01/24 14:21 [place] # (Auto) 0.8 10^3/uL (0.2-0.9) 08/01/24 14:21 Eos # (Auto) 0.0 10^3/uL (0.0-0.8) 08/01/24 14:21 Baso # (Auto) 0.1 10^3/uL (0.0-0.1) 08/01/24 14:21 Nucleated RBC % (auto) 0 % 08/01/24 14:21 Nucleated RBCs # 0.0 /100WBC 08/01/24 14:21 Sodium 135 mmol/L (136-145) L 08/01/24 14:21 Potassium 3.6 mmol/L (3.5-5.1) 08/01/24 14:21 Chloride 93 mmol/L (98-107) L 08/01/24 14:21 Carbon Dioxide 23 mmol/L (22-29) 08/01/24 14:21 Anion Gap 22.6 (5-19) H 08/01/24 14:21 BUN 15 mg/dL (6-20) 08/01/24 14:21 Creatinine 0.7 mg/dL (0.5-0.9) 08/01/24 14:21 GFR Calculation 115.2 mL/min (90-130) 08/01/24 14:21 Glucose 113 mg/dL (65-115) 08/01/24 14:21 Calculated Osmolality 282 mOsm/kg (285-295) L 08/01/24 14:21 Calcium 9.7 mg/dL (8.5-10.5) 08/01/24 14:21 Magnesium 1.5 mg/dL (1.7-2.3) L 08/01/24 14:21 Total Bilirubin 1.6 mg/dL (0.15-1.2) H 08/01/24 14:21 AST 71 U/L (0-32) H 08/01/24 14:21 ALT 35 U/L (0-33) H 08/01/24 14:21 Alkaline Phosphatase 120 U/L (35-105) H 08/01/24 14:21 Total Protein 8.6 g/dL (6.6-8.7) 08/01/24 14:21 Albumin 4.3 g/dL (3.5-5.2) 08/01/24 14:21 Globulin 4.3 g/dL (1.3-4.6) 08/01/24 14:21 Lipase 17 U/L (13-60) 08/01/24 14:21 HCG, Qual Negative (Negative) 08/01/24 14:21 Urine Color Yellow (Yellow) 08/01/24 18:53 Urine Appearance Clear (CLEAR) 08/01/24 18:53 Urine pH 5.5 (5-7) 08/01/24 18:53 Ur Specific [place] 1.089 (1.005-1.030) H 08/01/24 18:53 Urine Protein Trace (Negative) A 08/01/24 18:53 Urine Glucose (UA) Negative (Normal) 08/01/24 18:53 Urine Ketones 1+ (Negative) H 08/01/24 18:53 Urine Blood Negative (Negative) 08/01/24 18:53 Urine Nitrate Negative (Negative) 08/01/24 18:53 Urine Bilirubin Negative (Negative) 08/01/24 18:53 Urine Urobilinogen 0.2 mg/dL (Negative) 08/01/24 18:53 Ur Leukocyte Esterase Negative (Negative) 08/01/24 18:53 Urine RBC 0-2 /hpf (0-2) 08/01/24 18:53 Urine WBC 11-20 /hpf (0-5) H 08/01/24 18:53 Ur Squamous Epith Cells 0-5 /hpf (0-5) 08/01/24 18:53 Amorphous Sediment Not Reportable 08/01/24 18:53 Urine Bacteria Trace /hpf (NONE) 08/01/24 18:53 Hyaline Casts 0-4 /lpf H 08/01/24 18:53 Urine Opiates Screen Negative ng/mL (Negative) 08/01/24 18:53 Ur Barbiturates Screen Negative ng/mL (Negative) 08/01/24 18:53 Ur Phencyclidine Scrn Negative ng/mL (Negative) 08/01/24 18:53 Ur Amphetamines Screen Positive ng/mL (Negative) H 08/01/24 18:53 U Benzodiazepines Scrn Positive ng/mL (Negative) H 08/01/24 18:53 Urine Cocaine Screen Negative ng/mL (Negative) 08/01/24 18:53 U Marijuana (THC) Screen Positive ng/mL (Negative) H 08/01/24 18:53 Ethyl Alcohol < 10 mg/dL (0-10) 08/01/24 14:21 Discharge Plan Discharge Patient Disposition: Home Clinical Impression: Abdominal pain, Urinary tract infection, Alcohol abuse, Alcohol withdrawal, Dehydration Condition: Stable Prescriptions: New cephalexin 500 mg tablet 500 mg PO TID 7 Days Qty: 21 0RF No Action trazodone 50 mg Tablet 50 mg PO BEDTIME PRN (Reason: Sleep) 30 Days Qty: 30 1RF quetiapine [Seroquel] 100 mg tablet 150 mg PO BEDTIME 30 Days Qty: 30 1RF Vivitrol 380 mg Suspension,Extended Rel Recon 380 mg IM Q28D Qty: 1 1RF Rx Instructions: Next IM monthly shot due 06/09/24 olanzapine 5 mg Tablet,Disintegrating 5 mg PO Q4H PRN (Reason: Agitation/Psychosis) 30 Days Qty: 15 1RF quetiapine 100 mg Tablet 200 mg PO BEDTIME 30 Days Qty: 60 1RF acetaminophen 500 mg capsule 1,000 mg PO .q 6-8 PRN (Reason: pain) Qty: 30 0RF ibuprofen [Advil] 200 mg Tablet 800 mg PO Q6H PRN (Reason: Pain) Discharge Orders: Discharge ED (Routine); Ordered 08/01/24 Ordered By: Isabel Borrego Discharge Diet: Usual diet Discharge Activity: Increase activity as tolerated Patient Instructions: Abdominal Pain (ED), Opioid Safety, Pain Management Activity Restrictions/Additional Instructions: Thank you for choosing [facility] for your healthcare needs today. Please realize this is an emergency room and that we are providing you with a medical screening exam and this may not be complete and all inclusive of all the testing and or work up that you may need to determine your ailment or severity of your illness. You have been screened and evaluated and felt safe for discharge. Health conditions do change or evolve sometimes and as such it is important that you follow up with your Primary Doctor to be re checked, 3-5 days is a general good time frame for follow up. You are always welcome to return to the ED for re assessment if your symptoms are worsening or you have new concerns Print Language: Yakut Coding Level of Care Code ED Communications Engineering Technician for [employer] Documented by User: Isabel Borrego MD 08/01/24 19:42 HPI - General Adult 2 General: Chief complaint: General Medical Stated complaint: withdraws sent from crisis Time Seen by Provider: 08/01/24 16:52 Related Data Home Medications ?Medication ?Instructions ?Recorded ?Confirmed ibuprofen 200 mg tablet (Advil) 800 mg PO Q6H PRN Pain 07/05/24 07/06/24 Previous Rx's ?Medication ?Instructions ?Recorded naltrexone microspheres 380 mg 380 mg IM Q28D #1 ea intramuscular suspension,extended release (Vivitrol) quetiapine 100 mg tablet (Seroquel) 150 mg (1.5 x 100 mg) PO BEDTIME 06/14/24 30 days #30 tabs trazodone 50 mg tablet 50 mg PO BEDTIME PRN Sleep 3 0 days 06/14/24 #30 tabs acetaminophen 500 mg capsule 1,000 mg (2 x 500 mg) PO .q 6-8 07/05/24 PRN pain #30 caps olanzapine 5 mg disintegrating 5 mg PO Q4H PRN 5 tablet Agitation/Psychosis 30 days #15 tabs quetiapine 100 mg tablet 200 mg (2 x 100 mg) PO BEDTI ME 30 07/10/24 days #60 tabs cephalexin 500 mg tablet 500 mg PO TID 7 days #21 tab s 08/01/24 Allergies Allergy/AdvReac Type Severity Reaction Status Date / Time No Known Allergies Allergy Verified 06/10/24 19:53 PFSH ED 2 PFSH: Medical History Psychiatric care Social History Smoking and tobacco/nicotine status: current every day tobacco/nicotine user Course 2 Vital Signs: Vital signs: Vital Signs Temperature 98.3 F 08/01/24 11:45 Pulse Rate 104 H 08/01/24 19:43 Respiratory Rate 18 08/01/24 19:43 Blood Pressure 109/78 08/01/24 19:43 Pulse Oximetry 96 08/01/24 19:43 Oxygen Delivery Me thod Room Air 08/01/24 11:45 MDM - General Adult Medical Decision Making Patient care transitioned me at shift change. CT of the abdomen pelvis showed no acute process. This was reviewed and interpreted by myself the emergency room physician. I also reviewed the radiology report. Lab work: Patient did not have pancreatitis. She does have a UTI. She does appear quite dry in her urine. 2 L of fluid being given. Ativan have been given. She says she feels much better. We discussed admission for alcohol withdrawal versus going home to drink and the person is with her says he can get her some alcohol and she says she does not want to quit drinking at this point. She is no longer having any withdrawal symptoms and they say they can get alcohol. I discussed the if she is at the point when she is ready to quit to seek help. Assessment and plan: Dehydration Alcohol abuse Alcohol withdrawal UTI Abdominal pain ? IV Ativan, IV fluids, IV Rocephin. - Discharged home - Discussed plan with patient. Answered any questions. - Evaluation and treatment of this problem were appropriate in the emergency setting. Lab Data 08/01/24 14:21 08/01/24 14:21 Radiology Impressions Abdomen/Pelvis CT 08/01/24 17:16 IMPRESSION: No acute intra-abdominal or pelvic process. Laboratory Results WBC 16.14 10^3/uL (3.29-11.43) H 08/01/24 14:21 RBC 4.91 10^6/uL (3.85-5.65) 08/01/24 14:21 Hgb 16.20 g/dL (11.27-16.99) 08/01/24 14:21 Hct 47.5 % (36-47) H 08/01/24 14:21 MCV 96.7 fl (85-98) 08/01/24 14:21 MCH 33.0 pg (27-33) 08/01/24 14: MCHC 34.1 g/dL (30-55) 08/01/24 14:21 RDW 12.6 % (12.1-15.1) 08/01/24 14:21 Plt Count 321 10^3/cmm (157-399) 08/01/24 14:21 MPV 10.0 fL (7.4-10.4) 08/01/24 14:21 Neut % (Auto) 74.4 % 08/01/24 14:21 Lymph % (Auto) 19.8 % 08/01/24 14:21 [place] % (Auto) 4.7 % 08/01/24 14:21 Eos % (Auto) 0.1 % 08/01/24 14:21 Baso % (Auto) 0.7 % 08/01/24 14: Neut # (Auto) 12.02 10^3/uL (1.8-7.7) H 08/01/24 14:21 Lymph # (Auto) 3.2 10^3/uL (0.8-4.8) 08/01/24 14:21 [place] # (Auto) 0.8 10^3/uL (0.2-0.9) 08/01/24 14:21 Eos # (Auto) 0.0 10^3/uL (0.0-0.8) 08/01/24 14: Baso # (Auto) 0.1 10^3/uL (0.0-0.1) 08/01/24 14:21 Nucleated RBC % (auto) 0 % 08/01/24 14: Nucleated RBCs # 0.0 /100WBC 08/01/24 14:21 Sodium 135 mmol/L (136-145) L 08/01/24 14:21 Potassium 3.6 mmol/L (3.5-5.1) 08/01/24 14:21 Chloride 93 mmol/L (98-107) L 08/01/24 14:21 Carbon Dioxide 23 mmol/L (22-29) 08/01/24 14:21 Anion Gap 22.6 (5-19) H 08/01/24 14:21 BUN 15 mg/dL (6-20) 08/01/24 14:21 Creatinine 0.7 mg/dL (0.5-0.9) 08/01/24 14:21 GFR Calculation 115.2 mL/min (90-130) 08/01/24 14:21 Glucose 113 mg/dL (65-115) 08/01/24 14:21 Calculated Osmolality 282 mOsm/kg (285-295) L 08/01/24 14:21 Calcium 9.7 mg/dL (8.5-10.5) 08/01/24 14:21 Magnesium 1.5 mg/dL (1.7-2.3) L 08/01/24 14:21 Total Bilirubin 1.6 mg/dL (0.15-1.2) H 08/01/24 14:21 AST 71 U/L (0-32) H 08/01/24 14:21 ALT 35 U/L (0-33) H 08/01/24 14:21 Alkaline Phosphatase 120 U/L (35-105) H 08/01/24 14:21 Total Protein 8.6 g/dL (6.6-8.7) 08/01/24 14:21 Albumin 4.3 g/dL (3.5-5.2) 08/01/24 14:21 Globulin 4.3 g/dL (1.3-4.6) 08/01/24 14:21 Lipase 17 U/L (13-60) 08/01/24 14:21 HCG, Qual Negative (Negative) 08/01/24 14:21 Urine Color Yellow (Yellow) 08/01/24 18:53 Urine Appearance Clear (CLEAR) 08/01/24 18:53 Urine pH 5.5 (5-7) 08/01/24 18:53 Ur Specific [place] 1.089 (1.005-1.030) H 08/01/24 18:53 Urine Protein Trace (Negative) A 08/01/24 18:53 Urine Glucose (UA) Negative (Normal) 08/01/24 18:53 Urine Ketones 1+ (Negative) H 08/01/24 18:53 Urine Blood Negative (Negative) 08/01/24 18:53 Urine Nitrate Negative (Negative) 08/01/24 18:53 Urine Bilirubin Negative (Negative) 08/01/24 18:53 Urine Urobilinogen 0.2 mg/dL (Negative) 08/01/24 18:53 Ur Leukocyte Esterase Negative (Negative) 08/01/24 18:53 Urine RBC 0-2 /hpf (0-2) 08/01/24 18:53 Urine WBC 11-20 /hpf (0-5) H 08/01/24 18:53 Ur Squamous Epith Cells 0-5 /hpf (0-5) 08/01/24 18:53 Amorphous Sediment Not Reportable 08/01/24 18:53 Urine Bacteria Trace /hpf (NONE) 08/01/24 18:53 Hyaline Casts 0-4 /lpf H 08/01/24 18:53 Urine Opiates Screen Negative ng/mL (Negative) 08/01/24 18:53 Ur Barbiturates Screen Negative ng/mL (Negative) 08/01/24 18:53 Ur Phencyclidine Scrn Negative ng/mL (Negative) 08/01/24 18:53 Ur Amphetamines Screen Positive ng/mL (Negative) H 08/01/24 18:53 U Benzodiazepines Scrn Positive ng/mL (Negative) H 08/01/24 18:53 Urine Cocaine Screen Negative ng/mL (Negative) 08/01/24 18:53 U Marijuana (THC) Screen Positive ng/mL (Negative) H 08/01/24 18:53 Ethyl Alcohol < 10 mg/dL (0-10) 08/01/24 14:21 All radiology interpretation(s) finalized by discharge Discharge Plan Discharge Patient Disposition: Home Clinical Impression: Abdominal pain, Urinary tract infection, Alcohol abuse, Alcohol withdrawal, Dehydration Condition: Stable Prescriptions: New cephalexin 500 mg tablet 500 mg PO TID 7 Days Qty: 21 0RF No Action trazodone 50 mg Tablet 50 mg PO BEDTIME PRN (Reason: Sleep) 30 Days Qty: 30 1RF quetiapine [Seroquel] 100 mg tablet 150 mg PO BEDTIME 30 Days Qty: 30 1RF Vivitrol 380 mg Suspension,Extended Rel Recon 380 mg IM Q28D Qty: 1 1RF Rx Instructions: Next IM monthly shot due 06/09/24 olanzapine 5 mg Tablet,Disintegrating 5 mg PO Q4H PRN (Reason: Agitation/Psychosis) 30 Days Qty: 15 1RF quetiapine 100 mg Tablet 200 mg PO BEDTIME 30 Days Qty: 60 1RF acetaminophen 500 mg capsule 1,000 mg PO .q 6-8 PRN (Reason: pain) Qty: 30 0RF ibuprofen [Advil] 200 mg Tablet 800 mg PO Q6H PRN (Reason: Pain) Discharge Orders: Discharge ED (Routine); Ordered 08/01/24 Ordered By: Isabel Borrego Discharge Diet: Usual diet Discharge Activity: Increase activity as tolerated Patient Instructions: Abdominal Pain (ED), Opioid Safety, Pain Management Activity Restrictions/Additional Instructions: Thank you for choosing [facility] for your healthcare needs today. Please realize this is an emergency room and that we are providing you with a medical screening exam and this may not be complete and all inclusive of all the testing and or work up that you may need to determine your ailment or severity of your illness. You have been screened and evaluated and felt safe for discharge. Health conditions do change or evolve sometimes and as such it is important that you follow up with your Primary Doctor to be re checked, 3-5 days is a general good time frame for follow up. You are always welcome to return to the ED for re assessment if your symptoms are worsening or you have new concerns Print Language: Yakut Coding Level of Care Code ED Communications Engineering Technician for Janet Bedoya
--- NOTE | 2024-08-01 17:16 | CTR_ITS ---
PROCEDURE INFORMATION: Exam: CT Abdomen And Pelvis Without Contrast Exam date and time: 08/01/2024 6:14 PM Age: 34 years old Clinical indication: Abdominal pain; Generalized; Prior surgery; Surgery date: 6+ months; Surgery type: Gb TECHNIQUE: Imaging protocol: Computed tomography of the abdomen and pelvis without contrast. Radiation optimization: All CT scans at this facility use at least one of these dose optimization techniques: automated exposure control; mA and/or kV adjustment per patient size (includes targeted exams where dose is matched to clinical indication); or iterative reconstruction. COMPARISON: No relevant prior studies available. RADIATION DOSE METRICS: Total DLP (mGy-cm): 864.93 FINDINGS: Lungs: The lung bases are clear. Heart: Heart size is within normal limits. There is no pericardial effusion or pericardial thickening. Liver: There is suggestion of fatty liver, suboptimally assessed on postcontrast imaging. The liver is otherwise normal. Gallbladder and biliary ducts: Gallbladder is not visualized and likely surgically absent. No surgical clips are present. There is no biliary dilatation Pancreas: The pancreas is normal. Spleen: The spleen is normal. Adrenal glands: The adrenal glands are normal. Kidneys and ureters: There is normal enhancement of the kidneys. No renal calcifications are identified. There is no hydronephrosis. Stomach and bowel: There is no large or small bowel obstruction. There is no evidence of bowel wall thickening. Appendix: A normal appendix is identified. Intraperitoneal space: No inflammatory changes are identified. There is no free fluid or fluid collection seen. There is no pneumoperitoneum. Vasculature: Atherosclerotic calcifications of the aorta are present. No aneurysm is identified. Lymph nodes: No enlarged lymph nodes are identified. Urinary bladder: The bladder is decompressed and collapsed. No abnormality identified. Reproductive: The uterus is present. Bones/joints: No acute osseous abnormalities are seen. Soft tissues: Tiny periumbilical hernia containing only fat. CT/CT abdomen pelvis wo con [id number] IMPRESSION: No acute intra-abdominal or pelvic process.
[2024-08-01 17:43] LABS: Lipase 17 U/L (13-60)
[2024-08-01 17:47] LABS: HCG, Serum Qual Negative (Negative)
[2024-08-01] MEDS: sodium chloride 0.9% 1,000 ML 999 ML IV ×2 (17:55)
[2024-08-01] MEDS: pantoprazole 40 mg SDV 80 MG IVP (17:56)
[2024-08-01] MEDS: LORazepam 2 mg/mL INJ 1 mL IVP (17:57)
[2024-08-01] MEDS: prochlorperazine 10 mg/2 mL Inj IVP (17:57)
[2024-08-01] MEDS: iohexol 350 mg/mL 500 mL Btl (per mL) IV (18:18)
[2024-08-01 18:38] VITALS: BP 157/107; PULSE 94; O2SAT 98
[2024-08-01 19:03] LABS: Bilirubin Urine Negative (Negative); Blood Urine Negative (Negative); Glucose Urine UA Negative (Normal); Ketones Urine 1+ (Negative); Leukocyte Esterase Urine Negative (Negative); Nitrate Urine Negative (Negative); Protein Urine Trace (Negative); Urine Appearance Clear (CLEAR); Urine Color Yellow (Yellow); Urobilinogen Urine 0.2 mg/dL (Negative); pH Urine 5.5 (5-7)
[2024-08-01 19:08] LABS: Add Urine Microscopic? YES; Bacteria Urine Trace /hpf; Hyaline Casts Urine 0-4 /lpf; RBC Urine 0-2 /hpf (0-2); Squamous Epithelial Cell Urine 0-5 /hpf (0-5)
[2024-08-01 19:12] LABS: Amphetamines Screen Urine Positive (Negative); Barbiturates Screen Urine Negative (Negative); Benzodiazepines Screen Urine Positive (Negative); Cocaine Screen Urine Negative (Negative); Opiate Screen Urine Negative (Negative); PCP Screen Urine Negative (Negative); Specific Gravity, Urine 1.089 (1.005-1.030); THC Screen Urine Positive (Negative)
[2024-08-01 19:13] LABS: Add Urine Culture? No
[2024-08-01 19:31] VITALS: BP 109/78; PULSE 105; RESP 18; O2SAT 97
[2024-08-01 19:43] VITALS: BP 109/78; PULSE 104; RESP 18; O2SAT 96
== END 2024-08-01 19:51 | disposition home or self-care (01) ==
PROVIDERS: Emergency Medicine; Family Medicine; Emergency Provider Emergency Medicine
DX: F10.139 Alcohol abuse with withdrawal, unspecified (principal); N39.0 Urinary tract infection, site not specified; E86.0 Dehydration; Z72.0 Tobacco use
CPT/HCPCS: 36415; 74176; 80053; 80306; 80307; 81001; 83690; 83735; 84703; 85025; 96361; 96374; 96375; 99285; J0780; J2060; J2470; J7030

== ENCOUNTER → 2024-08-09 10:51 | Outpatient (BNVA) | payer BC, MEDICAID, SELFPAY | PROVIDERS: Visit Provider Nurse Practitioner Psychiatric/Mental Health | DX: Z79.899 Other long term (current) drug therapy (principal) | CPT/HCPCS: 80061; 80307; 83036 ==